=== PATIENT | male | born 1950 | race Caucasian/White ===

== ENCOUNTER → 2017-11-14 01:35 | Outpatient (CLI) | payer BC, SELFPAY ==
--- NOTE | 2017-11-14 10:51 | DI.REPORT_ITS ---
SYMPTOMS/DIAGNOSIS: F/U RT RENAL STONE, N20.0, LT HYDRO WITH MINIMAL FUNCTION RENAL ULTRASOUND: Routine examination. Comparison 04/14/17. The right kidney measures 11.4 cm long. No renal mass, calculus or obstruction is seen. There is normal blood flow to the right kidney. The left kidney measures 11.2 cm long. There is moderate to severe dilatation of the collecting system which is unchanged compared to 04/14/17. There is also again seen an exophytic cyst arising from the mid left kidney which is unchanged. The prevoid urinary bladder volume was 144 cc's. The bladder wall appeared smooth. The left ureteral jet was not visualized. The right ureteral jet was visualized. The prostate gland volume is 86 cc's. IMPRESSION: 1. No evidence of nephrolithiasis. 2. Persistent stable moderate to severe left hydronephrosis.
== END ==
PROVIDERS: PCP Internal Medicine; Visit Provider Urology
DX: N20.0 Calculus of kidney (principal); N13.30 Unspecified hydronephrosis
CPT/HCPCS: 76770

== ENCOUNTER 2018-04-06 13:36 | Outpatient (REF) | payer BC, SELFPAY ==
[2018-04-06 20:56] LABS: Abs Immature Grans 0.01 k/cumm (0.0-0.09); Absolute Basophil Count 0.05 k/cumm (0.0-0.2); Absolute Eosinophil Count 0.19 k/cumm (0.0-0.7); Absolute Lymphocyte Count 1.83 k/cumm (1.2-3.4); Absolute Monocyte Count 0.76 k/cumm (0.11-0.7); Basophils % 0.7; Eosinophils % 2.6; HCT 40.6 % (40.0-50.0); HGB 13.5 g/dL (13.5-17.5); Immature Grans % 0.1; Lymphocytes % 24.6; Mean Corp. HGB Concentration 33.3 g/dL (32.0-36.0); Mean Corpuscular Hemoglobin 27.7 pg (27.0-33.0); Mean Corpuscular Volume 83.2 fL (80-95); Mean Platelet Volume 11.5 fL (8.0-11.0); Monocytes % 10.2; Neutrophils % 61.8; Platelet Count 200 x1000/uL (130-400); RBC 4.88 m/cumm (4.50-6.00); RBC Distribution Width 13.5 % (11.8-14.1); White Blood Cell Count 7.44 k/cumm (4.4-10.8)
[2018-04-06 20:58] LABS: Bilirubin Negative (Negative); Blood Trace-intact (Negative); Clarity Clear; Glucose Negative (Negative); Ketones Negative (Negative); Leukocyte Esterase Negative (Negative); Nitrite Negative (Negative); Specific Gravity 1.025 (1.005-1.025); Urobilinogen 0.2 EU/dL (Up TO 0.2); pH 6.5 (5-8)
[2018-04-06 21:05] LABS: Epithelial Cells Rare HPF (Negative); Other Cells Negative (Negative); RBC 0-2 (0-2); WBC Negative HPF (0-5)
[2018-04-06 21:06] LABS: Bacteria Rare HPF (Negative); C & S Indicated? No; Casts Negative LPF (Negative); Crystals Negative HPF (Negative); Mucus Negative (Negative)
[2018-04-06 21:59] LABS: ESR 41 MM/HR (1-20)
[2018-04-09 12:01] LABS: Hepatitis C Ab w Rflx HCV PCR Negative (NEGAT)
== END 2018-04-06 13:56 ==
LOC: NCHCN 13:36
PROVIDERS: PCP Internal Medicine; Visit Provider Internal Medicine
DX: L03.115 Cellulitis of right lower limb (principal); Z11.59 Encounter for screening for other viral diseases
CPT/HCPCS: 85652; 86803; 81003; 81015; 85025

== ENCOUNTER 2018-04-09 11:10 | Outpatient (CLI) | payer BC, SELFPAY ==
--- NOTE | 2018-04-09 12:42 | DI.US_ITS ---
SYMPTOMS/DIAGNOSIS: RT CALF PAIN, M79.771, ? DVT RIGHT LOWER EXTREMITY ULTRASOUND: The deep veins of the right lower extremity show normal compression, augmentation and color flow. There is no evidence of a deep venous thrombus in the right lower extremity. The saphenofemoral junction appears unremarkable. The visualized portions of the greater saphenous vein show compression. No focal fluid collections are seen. There is edema seen in the soft tissues of the lower extremity. IMPRESSION: No evidence of a right lower extremity deep venous thrombus.
== END 2018-04-09 11:30 ==
PROVIDERS: PCP Internal Medicine; Visit Provider Internal Medicine
DX: M79.661 Pain in right lower leg (principal); L03.115 Cellulitis of right lower limb
CPT/HCPCS: 93971

== ENCOUNTER 2018-05-07 16:15 | Outpatient (REF) | payer BC, SELFPAY ==
[2018-05-07 22:26] LABS: BUN 24 mg/dL (7-18); CREATININE 1.03 mg/dL (0.70-1.30); Calcium 8.7 mg/dL (8.5-10.1); Chloride 103 mmol/L (98-107); Cholesterol 143 mg/dL (50-200); Glucose 119 mg/dL (70-100); HDL Cholesterol 35 mg/dL (40-60); LDL CHOLESTEROL 75 mg/dL (<100); Potassium 5.3 mmol/L (3.5-5.1); Sodium 140 mmol/L (136-145); Triglyceride 287 mg/dL (30-150)
== END 2018-05-07 16:35 ==
LOC: NCHCN 16:15
PROVIDERS: PCP Internal Medicine; Visit Provider Internal Medicine
DX: E11.9 Type 2 diabetes mellitus without complications (principal); I10 Essential (primary) hypertension; L97.529 Non-pressure chronic ulcer of other part of left foot with unspecified severity; M25.512 Pain in left shoulder; R60.9 Edema, unspecified; G47.33 Obstructive sleep apnea (adult) (pediatric); E66.9 Obesity, unspecified; S91.105A Unspecified open wound of left lesser toe(s) without damage to nail, initial encounter
CPT/HCPCS: 80048; 80061; 83721; 87077; 87070; 87205

== ENCOUNTER 2018-07-15 13:12 | Emergency (ER) | payer BC, SELFPAY ==
[2018-07-15] VITALS (8 sets, daily range): BP systolic 123–165; BP diastolic 60–61; PULSE 94–112; RESP 18; TEMP 38.4–39.2; O2SAT 98
--- NOTE | 2018-07-15 13:35 | W.ED.GENAD ---
Discharge Plan Disposition Patient Disposition: HOME Condition: Improving Discharge Details Chief Complaint: Cellulitis Clinical Impression: Cellulitis of leg, right Primary Care Provider: Chavo Flores ED Provider: Joselito Luna Home Meds and New Rx's Prescriptions: New amoxicillin-pot clavulanate 875-125 mg tablet 1 tab PO BID 10 Days Qty: 20 RF: 0 Continued metformin 1,000 MG tablet 1,000 mg PO BID RF: 0 losartan 25 MG tablet 25 mg PO HS RF: 0 simvastatin 20 MG tablet 20 mg PO DAILY RF: 0 deltamycin RF: 0 tadalafil [Cialis] 5 mg tablet 5 mg PO DAILY Qty: 30 RF: 12 multivitamin [Daily-Matias] 1 EACH tablet 1 ea PO DAILY RF: 0 vitamin B complex 1 EACH capsule 1 ea PO DAILY RF: 0 Fish Oil 500 MG capsule,delayed release(DR/EC) 1,500 mg PO DAILY RF: 0 fluocinonide 15 GM cream 1 applic Topical PRN PRNRF: 0 Discharge Instructions Instructions: Cellulitis (ED) Additional Instructions: Home to rest today. Elevate the leg above the level of the heart to reduce pain and swelling. Begin Augmentin, next dose this evening and again in the morning. I have prescribed a course of Augmentin that will need to be filled tomorrow. Return for ultrasound tomorrow morning. Please see enclosed paperwork. We will ask you to be reevaluated in the emergency department following her ultrasound in the morning. Return for any acute concerns this evening. May use Tylenol and/or ibuprofen as needed for fever or discomfort. Medical Decision Making 67-year-old male diabetic with a history of osteomyelitis, previous partial toe amputations, presents from home with 2 days right lower extremity erythema, warmth, swelling there was associated with fever at home today. He did recently travel home from [facility] earlier this week; an approximate 5-hour flight. He has had numerous episodes of soft tissue and bony infection in the past. I reviewed recent microbiology including tissue culture from May 07 which revealed streptococcal species sensitive to penicillins. Screening laboratories including CBC and CRP with blood culture obtained patient given dose of Zosyn, given current unavailability of Unasyn. XR without underlying bony pathology. Soft tissue swelling present. There is mild elevation of WBC and CRP. Patient improved over approximately 3 hours observation. I do feel he should have an outpatient ultrasound tomorrow morning as well as return for recheck. I will place him on Augmentin. He has pre-standing follow-up in wound clinic on Monday. If Isabella remains improved tomorrow, would anticipate a course of Augmentin with follow-up in [place] care clinic at [facility] [place] Lab Data Lab results reviewed: Yes I reviewed the patient's lab results. Laboratory Results - last 24 hr 07/15/18 07/15/18 14:20 14:20 WBC 12.69 H RBC 4.81 Hgb 13.1 L Hct 39.7 L MCV 82.5 MCH 27.2 MCHC 33.0 RDW 13.4 Plt Count 238 MPV 9.9 Immature Gran % 0.2 Neutrophils % 80.1 Lymphocytes % 9.9 Monocytes % 8.7 Eosinophils % 0.9 Basophils % 0.2 Absolute Neutrophils 10.16 H Absolute Lymphocytes 1.26 Absolute Monocytes 1.10 H Absolute Eosinophils 0.11 Absolute Basophils 0.03 Sodium 137 Potassium 4.1 Chloride 99 Carbon Dioxide 27.5 Anion Gap 10.5 BUN 21 H Creatinine 1.38 H Estimated GFR/1.73 m2 51.71 Glucose 166 H Calcium 9.1 Total Bilirubin 0.5 AST 16 ALT 25 Alkaline Phosphatase 85 C-Reactive Protein 6.38 H Total Protein 8.3 H Albumin 3.7 HPI General Mode of arrival: ambulatory. Date/Time Provider Initiated Documentation: 07/15/18 13:13. Limitations to Documentation: no limitations. Information obtained by: patient. History of Present Illness 67 year old M presents to the emergency department with the chief complaint of Right lower extremity erythema, pain, swelling. Hx of Osteomyelitis. , described as mild, Quality is described as aching and dull, and is localized to the right and lower extremity. Patient reports no radiation. Patient started experiencing this day(s) and it has been constant. No relieving factors improve symptom(s), No exacerbating factors reported . Patient notes fever/chills and other (redness, swelling, fever, discomfort). Patient did receive the following treatments prior to arrival, none Related Data Home Medications Medication Instructions Recorded Confirmed Fish Oil 1,500 mg PO DAILY 01/03/13 07/15/18 multivitamin [Daily-Matias] 1 ea PO DAILY 01/03/13 07/15/18 vitamin B complex 1 ea PO DAILY 01/03/13 07/15/18 fluocinonide 1 applic TOPICAL PRN PRN 12/19/14 07/15/18 losartan 25 mg PO HS 02/16/16 07/15/18 metformin 1,000 mg PO BID tab-cap 02/16/16 07/15/18 simvastatin 20 mg PO DAILY tab-cap 02/17/16 07/15/18 Deltamycin 04/14/17 tadalafil 5 mg tablet 5 mg PO DAILY #30 tab-cap 03/23/18 07/15/18 amoxicillin-pot clavulanate 1 tab PO BID 10 Days #20 tab 07/15/18 Previous Rx's Medication Instructions Recorded tadalafil 5 mg tablet 5 mg PO DAILY #30 tab-cap 03/23/18 amoxicillin-pot clavulanate 1 tab PO BID 10 Days #20 tab 07/15/18 Allergies Allergy/AdvReac Type Severity Reaction Status Date / Time Sulfa (Sulfonamide Allergy fever and Unverified 07/15/18 13:20 Antibiotics) rash lisinopril AdvReac Mild COUGH Unverified 07/15/18 13:20 General Stated Complaint: Cellulitis VALENTINO: 3 Review of Systems Review of Systems Flew to [facility] and returned earlier this week. Noticed erythema and swelling after performing joann chi yesterday. Fever today. 8 systems reviewed and otherwise- [facility] Surgical History Colonoscopy - IV Sedation (12/19/14) Social History Smoking/Tobacco Use Status: Former Tobacco Use Drug use: Never Do you feel safe at home: Yes Do you feel safe in your relationship?: Yes Exam Narrative Exam Narrative: GEN: awake, alert, oriented 3. Pleasant, well groomed, interactive. HEAD: Normocephalic, atraumatic ENT: Mucous membranes moist, oropharynx unremarkable, External ear exam unremarkable EYES: PERRL, EOMI NECK: Full ROM, no SENAIT, no menigismus CHEST/RESP: Nontender, clear to auscultation bilateral, no wheeze/rhonchi/rales CARDIOVASCULAR: Borderline tachycardic, regular, no murmur, rub laurent. 2+ Rad pulse bilateral ABDOMEN: Soft, nontender, no mass. +Bowel sounds EXT: Full ROM, healed surgical incisions on both feet, status post toe amputations both feet. The right lower extremity is erythematous and warm to the touch with blanching of the erythema. There is 2+ right pretibial edema. No cords are appreciated. At the distal edge of the remaining 2nd toe there is a shallow ulceration. Neuro: Grossly normal neurologic exam, conversant, interactive. Psych: Speech fluent, thoughts congruent, affect normal Course Vital Signs Temperature 38.7 C H 07/15/18 13:16 Pulse 112 H 07/15/18 13:16 Blood Pressure 165/61 H 07/15/18 13:16 Pulse Oximetry 98 07/15/18 13:16 Temperature 38.7 C H 07/15/18 13:16 Temperature Source Oral 07/15/18 13:16 Pulse 112 H 07/15/18 13:16 Blood Pressure 165/61 H 07/15/18 13:16 Blood Pressure Position Sitting 07/15/18 13:16 Pulse Oximetry 98 07/15/18 13:16 Oxygen Delivery Method Room Air 07/15/18 13:16 Oxygen Flow Rate 0 07/15/18 13:16 Pain Level 5 07/15/18 13:16 Lab/Test Results Lab/Test Results: 07/15/18 13:33 Blood Blood Culture - Pending 07/15/18 13:33 Blood Blood Culture - Pending
--- NOTE | 2018-07-15 13:39 | ED.GENADUL_ITS ---
Discharge Plan Disposition Patient Disposition: HOME Condition: Improving Discharge Details Chief Complaint: Cellulitis Clinical Impression: Cellulitis of leg, right Primary Care Provider: Chavo Flores ED Provider: Joselito Luna Home Meds and New Rx's Prescriptions: New amoxicillin-pot clavulanate 875-125 mg tablet 1 tab PO BID 10 Days Qty: 20 RF: 0 Continued metformin 1,000 MG tablet 1,000 mg PO BID RF: 0 losartan 25 MG tablet 25 mg PO HS RF: 0 simvastatin 20 MG tablet 20 mg PO DAILY RF: 0 deltamycin RF: 0 tadalafil [Cialis] 5 mg tablet 5 mg PO DAILY Qty: 30 RF: 12 multivitamin [Daily-Matias] 1 EACH tablet 1 ea PO DAILY RF: 0 vitamin B complex 1 EACH capsule 1 ea PO DAILY RF: 0 Fish Oil 500 MG capsule,delayed release(DR/EC) 1,500 mg PO DAILY RF: 0 fluocinonide 15 GM cream 1 applic Topical PRN PRNRF: 0 Discharge Instructions Instructions: Cellulitis (ED) Additional Instructions: Home to rest today. Elevate the leg above the level of the heart to reduce pain and swelling. Begin Augmentin, next dose this evening and again in the morning. I have prescribed a course of Augmentin that will need to be filled tomorrow. Return for ultrasound tomorrow morning. Please see enclosed paperwork. We will ask you to be reevaluated in the emergency department following her ultrasound in the morning. Return for any acute concerns this evening. May use Tylenol and/or ibuprofen as needed for fever or discomfort. Medical Decision Making 67-year-old male diabetic with a history of osteomyelitis, previous partial toe amputations, presents from home with 2 days right lower extremity erythema, warmth, swelling there was associated with fever at home today. He did recently travel home from [facility] earlier this week; an approximate 5- hour flight. He has had numerous episodes of soft tissue and bony infection in the past. I reviewed recent microbiology including tissue culture from May 07 which revealed streptococcal species sensitive to penicillins. Screening laboratories including CBC and CRP with blood culture obtained patient given dose of Zosyn, given current unavailability of Unasyn. XR without underlying bony pathology. Soft tissue swelling present. There is mild elevation of WBC and CRP. Patient improved over approximately 3 hours observation. I do feel he should have an outpatient ultrasound tomorrow morning as well as return for recheck. I will place him on Augmentin. He has pre- standing follow-up in wound clinic on Monday. If Isabella remains improved tomorrow, would anticipate a course of Augmentin with follow-up in wound care clinic at [facility] [place]. Lab Data Lab results reviewed: Yes I reviewed the patient's lab results. Laboratory Results - last 24 hr 07/15/18 07/15/18 14:20 14:20 WBC 12.69 H RBC 4.81 Hgb 13.1 L Hct 39.7 L MCV 82.5 MCH 27.2 MCHC 33.0 RDW 13.4 Plt Count 238 MPV 9.9 Immature Gran % 0.2 Neutrophils % 80.1 Lymphocytes % 9.9 Monocytes % 8.7 Eosinophils % 0.9 Basophils % 0.2 Absolute Neutrophils 10.16 H Absolute Lymphocytes 1.26 Absolute Monocytes 1.10 H Absolute Eosinophils 0.11 Absolute Basophils 0.03 Sodium 137 Potassium 4.1 Chloride 99 Carbon Dioxide 27.5 Anion Gap 10.5 BUN 21 H Creatinine 1.38 H Estimated GFR/1.73 m2 51.71 Glucose 166 H Calcium 9.1 Total Bilirubin 0.5 AST 16 ALT 25 Alkaline Phosphatase 85 C-Reactive Protein 6.38 H Total Protein 8.3 H Albumin 3.7 HPI General Mode of arrival: ambulatory . Date/Time Provider Initiated Documentation: 07/15/18 13:13 . Limitations to Documentation: no limitations . Information obtained by: patient . History of Present Illness 67 year old M presents to the emergency department with the chief complaint of Right lower extremity erythema, pain, swelling. Hx of Osteomyelitis. , described as mild, Quality is described as aching and dull, and is localized to the right and lower extremity. Patient reports no radiation. Patient started experiencing this day(s) and it has been constant. No relieving factors improve symptom(s), No exacerbating factors reported . Patient notes fever/chills and other (redness, swelling, fever, discomfort). Patient did receive the following treatments prior to arrival, none Related Data Home Medications Medication Instructions Recorded Confirmed Fish Oil 1,500 mg PO DAILY 01/03/13 07/15/18 multivitamin [Daily-Matias] 1 ea PO DAILY 01/03/13 07/15/18 vitamin B complex 1 ea PO DAILY 01/03/13 07/15/18 fluocinonide 1 applic TOPICAL PRN PRN 12/19/14 07/15/18 losartan 25 mg PO HS 02/16/16 07/15/18 metformin 1,000 mg PO BID tab-cap 02/16/16 07/15/18 simvastatin 20 mg PO DAILY tab-cap 02/17/16 07/15/18 Deltamycin 04/14/17 tadalafil 5 mg tablet 5 mg PO DAILY #30 tab-cap 03/23/18 07/15/18 amoxicillin-pot clavulanate 1 tab PO BID 10 Days #20 tab 07/15/18 Previous Rx's Medication Instructions Recorded tadalafil 5 mg tablet 5 mg PO DAILY #30 tab-cap 03/23/18 amoxicillin-pot clavulanate 1 tab PO BID 10 Days #20 tab 07/15/18 Allergies Allergy/AdvReac Type Severity Reaction Status Date / Time Sulfa (Sulfonamide Allergy fever and Unverified 07/15/18 13:20 Antibiotics) rash lisinopril AdvReac Mild COUGH Unverified 07/15/18 13:20 General Stated Complaint: Cellulitis VALENTINO: 3 Review of Systems Review of Systems Flew to [facility] and returned earlier this week. Noticed erythema and swelling after performing joann chi yesterday. Fever today. 8 systems reviewed and otherwise- [facility] Surgical History Colonoscopy - IV Sedation (12/19/14) Social History Smoking/Tobacco Use Status: Former Tobacco Use Drug use: Never Do you feel safe at home: Yes Do you feel safe in your relationship?: Yes Exam Narrative Exam Narrative: GEN: awake, alert, oriented 3. Pleasant, well groomed, interactive. HEAD: Normocephalic, atraumatic ENT: Mucous membranes moist, oropharynx unremarkable, External ear exam unremarkable EYES: PERRL, EOMI NECK: Full ROM, no SENAIT, no menigismus CHEST/RESP: Nontender, clear to auscultation bilateral, no wheeze/rhonchi/rales CARDIOVASCULAR: Borderline tachycardic, regular, no murmur, rub laurent. 2+ Rad pulse bilateral ABDOMEN: Soft, nontender, no mass. +Bowel sounds EXT: Full ROM, healed surgical incisions on both feet, status post toe amputations both feet. The right lower extremity is erythematous and warm to the touch with blanching of the erythema. There is 2+ right pretibial edema. No cords are appreciated. At the distal edge of the remaining 2nd toe there is a shallow ulceration. Neuro: Grossly normal neurologic exam, conversant, interactive. Psych: Speech fluent, thoughts congruent, affect normal Course Vital Signs Temperature 38.7 C H 07/15/18 13:16 Pulse 112 H 07/15/18 13:16 Blood Pressure 165/61 H 07/15/18 13:16 Pulse Oximetry 98 07/15/18 13:16 Temperature 38.7 C H 07/15/18 13:16 Temperature Source Oral 07/15/18 13:16 Pulse 112 H 07/15/18 13:16 Blood Pressure 165/61 H 07/15/18 13:16 Blood Pressure Position Sitting 07/15/18 13:16 Pulse Oximetry 98 07/15/18 13:16 Oxygen Delivery Method Room Air 07/15/18 13:16 Oxygen Flow Rate 0 07/15/18 13:16 Pain Level 5 07/15/18 13:16 Lab/Test Results Lab/Test Results: 07/15/18 13:33 Blood Blood Culture - Pending 07/15/18 13:33 Blood Blood Culture - Pending
[2018-07-15] MEDS: Acetaminophen 500 MG TAB 1000 MG PO (13:56)
[2018-07-15] MEDS: Lactated Ringers 1,000 ML 1000 ML IV (13:56)
[2018-07-15] MEDS: Ketorolac 15 MG/ML VIAL IVP (14:02)
[2018-07-15 14:32] LABS: Abs Immature Grans 0.03 k/cumm (0.0-0.09); Absolute Basophil Count 0.03 k/cumm (0.0-0.2); Absolute Eosinophil Count 0.11 k/cumm (0.0-0.7); Basophils % 0.2; Eosinophils % 0.9; HCT 39.7 % (40.0-50.0); HGB 13.1 g/dL (13.5-17.5); Immature Grans % 0.2; Lymphocytes % 9.9; Mean Corpuscular Hemoglobin 27.2 pg (27.0-33.0); Mean Corpuscular Volume 82.5 fL (80-95); Mean Platelet Volume 9.9 fL (8.0-11.0); Monocytes % 8.7; Neutrophils % 80.1; Platelet Count 238 x1000/uL (130-400); RBC 4.81 m/cumm (4.50-6.00); RBC Distribution Width 13.4 % (11.8-14.1); White Blood Cell Count 12.69 k/cumm (4.4-10.8)
[2018-07-15 14:33] LABS: Absolute Lymphocyte Count 1.26 k/cumm (1.2-3.4); Absolute Neutrophil Count 10.16 k/cumm (1.2-6.7)
[2018-07-15] MEDS: PIPERACILLIN/TAZO 3.375 GM in Normal Saline 50 ML IVPB (14:39)
[2018-07-15 14:45] LABS: ALT 25 U/L (12-78); AST 16 U/L (15-37); Albumin 3.7 g/dL (3.4-5.0); Alkaline Phosphatase 85 U/L (46-116); Anion Gap 10.5 mmol/L (3-11); BUN 21 mg/dL (7-18); Bilirubin, Total 0.5 mg/dL (0.2-1.0); C-Reactive Protein 6.38 mg/dL (0.0-0.3); CO2 27.5 mmol/L (21.0-32.0); CREATININE 1.38 mg/dL (0.70-1.30); Calcium 9.1 mg/dL (8.5-10.1); Chloride 99 mmol/L (98-107); Estimated GFR 51.71 (mL/min/1.73m2); Glucose 166 mg/dL (70-100); Potassium 4.1 mmol/L (3.5-5.1); Sodium 137 mmol/L (136-145); Total Protein 8.3 g/dL (6.4-8.2)
[2018-07-15] MEDS: Normal Saline 250 ML IV (14:49)
--- NOTE | 2018-07-15 14:59 | DI.RAD_ITS ---
SYMPTOMS/DIAGNOSIS: DIABETES, ERYTHEMA/PAIN, H/O OSTEOMYELITIS RIGHT TOES: Multiple images of the right toes were obtained. Comparison is 09/09/16. There are again seen postsurgical changes of an amputation of the great toe to the level of the shaft of the proximal phalanx. This is unchanged. Degenerative changes are seen in the 2nd toe in the interphalangeal joints. No acute fracture, dislocation, lytic or sclerotic lesion is seen. No radiographic findings to suggest acute osteomyelitis are present. There does appear to be soft tissue swelling of the right 2nd toe. IMPRESSION: 1. No acute fracture or dislocation. 2. Soft tissue swelling of the right 2nd toe. 3. Stable postsurgical changes of the right great toe.
--- NOTE | 2018-07-15 15:32 | DI.VRAD_ITS ---
EXAM: XR Right Toe(s), 2 or More Views EXAM DATE/TIME: 07/15/2018 1:35 PM CLINICAL HISTORY: 67 years old, male; Pain; Toes; Right; Additional info: 2nd, not 3rd toe painful x 1 wk. HX diabetes. TECHNIQUE: Imaging protocol: XR Right toes. Views: Minimum 2 views. COMPARISON: CR RIGHT FOOT COMPLETE 09/09/2016 8:07 PM FINDINGS: Prior amputation of the first digit at the level of the mid proximal phalanx. No significant soft tissue air. No acute bony erosive process. No acute fracture. Minimal ossification adjacent to the lateral aspect of the second distal phalanx well-corticated. Mild soft tissue swelling of the second digit an inflammatory process would have to be considered. IMPRESSION: 1. Prior first digit amputation as outlined above. 2. Diffuse soft tissue swelling of the second digit without a specific etiology however an inflammatory process or infectious process would have to be considered. Dictated and Authenticated by: Aaron Stokes MD. Ordering:ERIC Yee MD
[2018-07-15] MEDS: Amoxicillin 875/Clav. 125 TAB PO (16:44)
== END 2018-07-15 16:48 | disposition home or self-care (01) ==
PROVIDERS: Emergency Provider Emergency Medicine; PCP Internal Medicine
DX: L03.115 Cellulitis of right lower limb (principal); E11.9 Type 2 diabetes mellitus without complications; Z79.84 Long term (current) use of oral hypoglycemic drugs
CPT/HCPCS: 36415; 80053; 87040; 96361; 96365; 96375; 99284; 73660; 85025; 86140; J1885; J2543

== ENCOUNTER 2018-07-16 08:47 | Outpatient (CLI) | payer BC, SELFPAY ==
--- NOTE | 2018-07-16 09:41 | DI.US_ITS ---
SYMPTOM/DIAGNOSIS: RLE SWELLING, PAIN, RECENT LONG TRAVEL RIGHT LOWER EXTREMITY ULTRASOUND: The deep veins of the right lower extremity show normal compression, augmentation and color flow. There is no evidence of a deep venous thrombus present. There are lymph nodes seen in the right inguinal region, the largest measures 4.2 cm. IMPRESSION: No evidence of a right lower extremity deep venous thrombus.
== END 2018-07-16 09:07 ==
PROVIDERS: PCP Internal Medicine; Visit Provider Emergency Medicine
DX: R22.41 Localized swelling, mass and lump, right lower limb (principal); R59.0 Localized enlarged lymph nodes
CPT/HCPCS: 93971

== ENCOUNTER 2018-07-16 10:23 | Emergency (ER) | payer BC, SELFPAY ==
[2018-07-16 10:29] VITALS: BP 121/51; PULSE 92; RESP 16; TEMP 36.1; O2SAT 97
--- NOTE | 2018-07-16 11:29 | W.ED.GENAD ---
Discharge Plan Disposition Patient Disposition: HOME Condition: Stable Discharge Details Chief Complaint: Recheck Clinical Impression: Cellulitis Primary Care Provider: Chavo Flores ED Provider: Ev Elias Home Meds and New Rx's Prescriptions: Continued metformin 1,000 MG tablet 1,000 mg PO BID RF: 0 losartan 25 MG tablet 25 mg PO HS RF: 0 simvastatin 20 MG tablet 20 mg PO DAILY RF: 0 deltamycin RF: 0 tadalafil [Cialis] 5 mg tablet 5 mg PO DAILY Qty: 30 RF: 12 multivitamin [Daily-Matias] 1 EACH tablet 1 ea PO DAILY RF: 0 vitamin B complex 1 EACH capsule 1 ea PO DAILY RF: 0 Fish Oil 500 MG capsule,delayed release(DR/EC) 1,500 mg PO DAILY RF: 0 fluocinonide 15 GM cream 1 applic Topical PRN PRNRF: 0 amoxicillin-pot clavulanate 875-125 mg tablet 1 tab PO BID 10 Days Qty: 20 RF: 0 Discharge Instructions Instructions: Cellulitis (ED) Additional Instructions: Immediately to the emergency department if you develop any new or worsening symptoms or if you become otherwise concerned. It is extremely important that you are seen in follow-up tomorrow at your scheduled wound visit, or if you cannot attend that visit that you are seen in 24 hours here in the emergency department for recheck. It is also extremely important that you make an appoint to be seen as soon as possible by your primary care doctor. Referrals: Chavo Flores MD [Primary Care Provider] - Discharge Data Discharge Date/Time-TO BE ENTERED AT DEPARTURE: 07/16/18 11:34 Medical Decision Making Martin Navas is a 67 y/o man with h/o DM, HTN, HLD who presented to the ED for recheck and US results after being seen her for cellulitis, possible DVT yesterday and started on augmentin; Pt reporting symptoms improved. On exam Pt is well and non-toxic appearing. RLE 2+ pre-tibial edema, no edema of LLE. Blanching erythema of the right lower leg. US performed prior to arrival in the ED: radiology reported as neg for DVT, +lymphadenopathy. Given improvement of erythema from yesterday, Pt report that he feels much better overall, plan to continue outpt augmentin. Pt has scheduled wound appt at [facility] tomorrow. I had a lengthy discussion with Pt re: RTED precautions, home care, and importance of outpt f/u with wound care as scheduled tomorrow and also with PCP. Pt discharged to home with clear plan for outpt f/u. Pt verbalized understanding of the plan and was amenable. All questions answered. Medical Records Medical records reviewed: Yes I reviewed the patient's medical records. Imaging Data Radiologic Study: Radiologist's impression: RIGHT LOWER EXTREMITY ULTRASOUND: The deep veins of the right lower extremity show normal compression, augmentation and color flow. There is no evidence of a deep venous thrombus present. There are lymph nodes seen in the right inguinal region, the largest measures 4.2 cm. IMPRESSION: No evidence of a right lower extremity deep venous thrombus. HPI General Mode of arrival: ambulatory. Date/Time Provider Initiated Documentation: 07/16/18 10:32. Limitations to Documentation: no limitations. Information obtained by: patient, family, RN notes reviewed and old records reviewed. HPI Narrative: Martin Navas is a 67 y/o man with h/o DM, HTN, HLD presenting to the emergency department with recheck for cellulitis. Pt was seen here yesterday for redness and pain of the RLE. Diagnosed with cellulitis with concern for possible DVT. Pt was given IV abx in the ED, discharged to home with plan to RTED today for US and wound check. Pt has subsequently had 2 doses augmentin in addition to IV abx received in the ED. He reports feeling overall much better than yesterday. He notes that he had a fever last night, but no further fever this am despite no anti-pyretics. He states redness of the leg has improved from yesterday, but swelling has persisted. Has been eating and drinking as usual. Denies any pain other leg pain. No n/v/d. No other rash. No cough or SOB. Related Data Home Medications Medication Instructions Recorded Confirmed Fish Oil 1,500 mg PO DAILY 01/03/13 07/16/18 multivitamin [Daily-Matias] 1 ea PO DAILY 01/03/13 07/16/18 vitamin B complex 1 ea PO DAILY 01/03/13 07/16/18 fluocinonide 1 applic TOPICAL PRN PRN 12/19/14 07/16/18 losartan 25 mg PO HS 02/16/16 07/16/18 metformin 1,000 mg PO BID tab-cap 02/16/16 07/16/18 simvastatin 20 mg PO DAILY tab-cap 02/17/16 07/16/18 Deltamycin 04/14/17 tadalafil 5 mg tablet 5 mg PO DAILY #30 tab-cap 03/23/18 07/16/18 amoxicillin-pot clavulanate 1 tab PO BID 10 Days #20 tab 07/15/18 07/16/18 Previous Rx's Medication Instructions Recorded tadalafil 5 mg tablet 5 mg PO DAILY #30 tab-cap 03/23/18 amoxicillin-pot clavulanate 1 tab PO BID 10 Days #20 tab 07/15/18 Allergies Allergy/AdvReac Type Severity Reaction Status Date / Time Sulfa (Sulfonamide Allergy fever and Unverified 07/16/18 10:33 Antibiotics) rash lisinopril AdvReac Mild COUGH Unverified 07/16/18 10:33 General Stated Complaint: Recheck VALENTINO: 4 Review of Systems Review of Systems Constitutional: reports fever overnight Eyes: denies eye pain ENT: denies facial pain, dental pain, sore throat Cardiovascular: denies chest pain, reports RLE edema Respiratory: denies SOB, cough GI: denies abdominal pain, vomiting, diarrhea : denies flank pain MSK: denies back pain, neck pain, arthralgias Skin: reports RLE rash, no other rash Neuro: denies headaches, numbness, weakness PFSH Social History Smoking/Tobacco Use Status: Former Tobacco Use Drug use: Never Do you feel safe at home: Yes Do you feel safe in your relationship?: Yes Exam Narrative Exam Narrative: Constitutional: well and [id number]-[id number], pleasant, conversing normally HENT: head atraumatic/normocephalic/normal inspection, mucous membranes moist Eyes: conjunctiva normal, sclera normal, pupils 3mm b/l Neck: no stridor, normal ROM, trachea midline Resp: normal work of breathing Cardio: normal rate, normal rhythm Skin: warm, dry, normal color, other than ext exam as below Neuro: alert, not altered, grossly non-focal, normal tone, normal gait Ext: 2+ edema right lower leg, right lower leg with blanching erythema, no posterior calf TTP Psych: normal mood, normal affect, normal behavior Course Vital Signs Temperature 36.1 C L 07/16/18 10:29 Pulse 92 H 07/16/18 10:29 Respiratory Rate 16 07/16/18 10:29 Blood Pressure 121/51 L 07/16/18 10:29 Pulse Oximetry 97 07/16/18 10:29 Temperature 36.1 C L 07/16/18 10:29 Temperature Source Skin 07/16/18 10:29 Pulse 92 H 07/16/18 10:29 Respiratory Rate 16 07/16/18 10:29 Respiratory Effort Non-Labored 07/16/18 10:29 Blood Pressure 121/51 L 07/16/18 10:29 Blood Pressure Position Sitting 07/16/18 10:29 Pulse Oximetry 97 07/16/18 10:29 Oxygen Delivery Method Room Air 07/16/18 10:29 Oxygen Flow Rate 0 07/16/18 10:29 Pain Level 5 07/16/18 10:29
--- NOTE | 2018-07-17 21:21 | ED.GENADUL_ITS ---
Discharge Plan Disposition Patient Disposition: HOME Condition: Stable Discharge Details Chief Complaint: Recheck Clinical Impression: Cellulitis Primary Care Provider: Chavo Flores ED Provider: Ev Elias Home Meds and New Rx's Prescriptions: Continued metformin 1,000 MG tablet 1,000 mg PO BID RF: 0 losartan 25 MG tablet 25 mg PO HS RF: 0 simvastatin 20 MG tablet 20 mg PO DAILY RF: 0 deltamycin RF: 0 tadalafil [Cialis] 5 mg tablet 5 mg PO DAILY Qty: 30 RF: 12 multivitamin [Daily-Matias] 1 EACH tablet 1 ea PO DAILY RF: 0 vitamin B complex 1 EACH capsule 1 ea PO DAILY RF: 0 Fish Oil 500 MG capsule,delayed release(DR/EC) 1,500 mg PO DAILY RF: 0 fluocinonide 15 GM cream 1 applic Topical PRN PRNRF: 0 amoxicillin-pot clavulanate 875-125 mg tablet 1 tab PO BID 10 Days Qty: 20 RF: 0 Discharge Instructions Instructions: Cellulitis (ED) Additional Instructions: Immediately to the emergency department if you develop any new or worsening symptoms or if you become otherwise concerned. It is extremely important that you are seen in follow-up tomorrow at your scheduled wound visit, or if you cannot attend that visit that you are seen in 24 hours here in the emergency department for recheck. It is also extremely important that you make an appoint to be seen as soon as possible by your primary care doctor. Referrals: Chavo Flores MD [Primary Care Provider] - Discharge Data Discharge Date/Time-TO BE ENTERED AT DEPARTURE: 07/16/18 11:34 Medical Decision Making Martin Navas is a 67 y/o man with h/o DM, HTN, HLD who presented to the ED for recheck and US results after being seen her for cellulitis, possible DVT yesterday and started on augmentin; Pt reporting symptoms improved. On exam Pt is well and non-toxic appearing. RLE 2+ pre-tibial edema, no edema of LLE. Blanching erythema of the right lower leg. US performed prior to arrival in the ED: radiology reported as neg for DVT, +lymphadenopathy. Given improvement of erythema from yesterday, Pt report that he feels much better overall, plan to continue outpt augmentin. Pt has scheduled wound appt at [facility] tomorrow. I had a lengthy discussion with Pt re: RTED precautions, home care, and importance of outpt f/u with wound care as scheduled tomorrow and also with PCP. Pt discharged to home with clear plan for outpt f/u. Pt verbalized understanding of the plan and was amenable. All questions answered. Medical Records Medical records reviewed: Yes I reviewed the patient's medical records. Imaging Data Radiologic Study: Radiologist's impression: RIGHT LOWER EXTREMITY ULTRASOUND: The deep veins of the right lower extremity show normal compression, augmentation and color flow. There is no evidence of a deep venous thrombus present. There are lymph nodes seen in the right inguinal region, the largest measures 4.2 cm. IMPRESSION: No evidence of a right lower extremity deep venous thrombus. HPI General Mode of arrival: ambulatory . Date/Time Provider Initiated Documentation: 07/16/18 10:32 . Limitations to Documentation: no limitations . Information obtained by: patient, family, RN notes reviewed and old records reviewed . HPI Narrative: Martin Navas is a 67 y/o man with h/o DM, HTN, HLD presenting to the emergency department with recheck for cellulitis. Pt was seen here yesterday for redness and pain of the RLE. Diagnosed with cellulitis with concern for possible DVT. Pt was given IV abx in the ED, discharged to home with plan to [facility] today for US and wound check. Pt has subsequently had 2 doses augmentin in addition to IV abx received in the ED. He reports feeling overall much better than yesterday. He notes that he had a fever last night, but no further fever this am despite no anti-pyretics. He states redness of the leg has improved from yesterday, but swelling has persisted. Has been eating and drinking as usual. Denies any pain other leg pain. No n/v/d. No other rash. No cough or SOB. Related Data Home Medications Medication Instructions Recorded Confirmed Fish Oil 1,500 mg PO DAILY 01/03/13 07/16/18 multivitamin [Daily-Matias] 1 ea PO DAILY 01/03/13 07/16/18 vitamin B complex 1 ea PO DAILY 01/03/13 07/16/18 fluocinonide 1 applic TOPICAL PRN PRN 12/19/14 07/16/18 losartan 25 mg PO HS 02/16/16 07/16/18 metformin 1,000 mg PO BID tab-cap 02/16/16 07/16/18 simvastatin 20 mg PO DAILY tab-cap 02/17/16 07/16/18 Deltamycin 04/14/17 tadalafil 5 mg tablet 5 mg PO DAILY #30 tab-cap 03/23/18 07/16/18 amoxicillin-pot clavulanate 1 tab PO BID 10 Days #20 tab 07/15/18 07/16/18 Previous Rx's Medication Instructions Recorded tadalafil 5 mg tablet 5 mg PO DAILY #30 tab-cap 03/23/18 amoxicillin-pot clavulanate 1 tab PO BID 10 Days #20 tab 07/15/18 Allergies Allergy/AdvReac Type Severity Reaction Status Date / Time Sulfa (Sulfonamide Allergy fever and Unverified 07/16/18 10:33 Antibiotics) rash lisinopril AdvReac Mild COUGH Unverified 07/16/18 10:33 General Stated Complaint: Recheck VALENTINO: 4 Review of Systems Review of Systems Constitutional: reports fever overnight Eyes: denies eye pain ENT: denies facial pain, dental pain, sore throat Cardiovascular: denies chest pain, reports RLE edema Respiratory: denies SOB, cough GI: denies abdominal pain, vomiting, diarrhea : denies flank pain MSK: denies back pain, neck pain, arthralgias Skin: reports RLE rash, no other rash Neuro: denies headaches, numbness, weakness PFSH Social History Smoking/Tobacco Use Status: Former Tobacco Use Drug use: Never Do you feel safe at home: Yes Do you feel safe in your relationship?: Yes Exam Narrative Exam Narrative: Constitutional: well and [id number]-oraxivirv, pleasant, conversing normally HENT: head atraumatic/normocephalic/normal inspection, mucous membranes moist Eyes: conjunctiva normal, sclera normal, pupils 3mm b/l Neck: no stridor, normal ROM, trachea midline Resp: normal work of breathing Cardio: normal rate, normal rhythm Skin: warm, dry, normal color, other than ext exam as below Neuro: alert, not altered, grossly non-focal, normal tone, normal gait Ext: 2+ edema right lower leg, right lower leg with blanching erythema, no posterior calf TTP Psych: normal mood, normal affect, normal behavior Course Vital Signs Temperature 36.1 C L 07/16/18 10:29 Pulse 92 H 07/16/18 10:29 Respiratory Rate 16 07/16/18 10:29 Blood Pressure 121/51 L 07/16/18 10:29 Pulse Oximetry 97 07/16/18 10:29 Temperature 36.1 C L 07/16/18 10:29 Temperature Source Skin 07/16/18 10:29 Pulse 92 H 07/16/18 10:29 Respiratory Rate 16 07/16/18 10:29 Respiratory Effort Non-Labored 07/16/18 10:29 Blood Pressure 121/51 L 07/16/18 10:29 Blood Pressure Position Sitting 07/16/18 10:29 Pulse Oximetry 97 07/16/18 10:29 Oxygen Delivery Method Room Air 07/16/18 10:29 Oxygen Flow Rate 0 07/16/18 10:29 Pain Level 5 07/16/18 10:29
== END 2018-07-16 11:34 | disposition home or self-care (01) ==
PROVIDERS: Emergency Provider Student in an Organized Health Care Education/Training Program; PCP Internal Medicine
DX: L03.115 Cellulitis of right lower limb (principal); I10 Essential (primary) hypertension; E11.9 Type 2 diabetes mellitus without complications

== ENCOUNTER 2018-08-06 01:28 | Outpatient (CLI) | payer BC, SELFPAY ==
--- NOTE | 2018-08-06 09:04 | DI.US_ITS ---
SYMPTOM/DIAGNOSIS: F/U RT KIDNEY STONE AND LT HYDRONEPHROSIS, N13.30 RENAL ULTRASOUND: Comparison is made with 11/14/17. The left kidney measures 11.2 cm. in length. The right kidney measures 11.8 cm. in length. There is mild left renal parenchymal atrophy. There is again noted to be moderate to severe left hydronephrosis, unchanged. No calcifications are identified. There are no right renal calculi or right hydronephrosis. The prevoid bladder volume measures 87 cc's. There is a 12 cc. post void residual. Both ureteral jets were visualized. The prostate volume is 38 cc's. Prostate calcifications are noted. IMPRESSION: Stable moderate to severe left hydronephrosis. No calculi are visible.
== END 2018-08-06 01:48 ==
PROVIDERS: PCP Internal Medicine; Visit Provider Urology
DX: N13.30 Unspecified hydronephrosis (principal); N28.89 Other specified disorders of kidney and ureter
CPT/HCPCS: 76770

== ENCOUNTER 2018-12-12 14:38 | Outpatient (CLI) | payer BC, SELFPAY ==
--- NOTE | 2018-12-12 14:00 | DI.US_ITS ---
EXAM: US LOWER EXTREMITY VENOUS RT CLINICAL HISTORY: RIGHT CALF PAIN X 2 DAYS, M79.661, H/O CELLULITIS/STASIS DERMATITIS, ? DVT. TECHNIQUE: Ultrasound was performed using standard protocol. COMPARISON: No comparisons were available. FINDINGS: The examination is negative for DVT. Note is made of multiple large presumably reactive right groin l ymph nodes, the largest of which measures 3.7 x 1.6 x 2.84 cm. Medial right calf edema is demonstrat ed. There is also no evidence of superficial thrombophlebitis or a Seay's cyst.
[2018-12-12 16:03] LABS: Abs Immature Grans 0.06 k/cumm (0.0-0.09); HCT 41.5 % (40.0-50.0); HGB 13.9 g/dL (13.5-17.5); Mean Corp. HGB Concentration 33.5 g/dL (32.0-36.0); Mean Corpuscular Hemoglobin 27.6 pg (27.0-33.0); Mean Corpuscular Volume 82.3 fL (80-95); Mean Platelet Volume 10.6 fL (8.0-11.0); Platelet Count 212 x1000/uL (130-400); RBC 5.04 m/cumm (4.50-6.00); RBC Distribution Width 13.4 % (11.8-14.1); White Blood Cell Count 23.89 k/cumm (4.4-10.8)
[2018-12-12 16:41] LABS: Diff Comment Manual Differential
[2018-12-12 16:42] LABS: Absolute Lymphocyte Count 7.64 k/cumm (1.2-3.4); Absolute Monocyte Count 1.19 k/cumm (0.11-0.7); Absolute Neutrophil Count 22.22 k/cumm (1.2-6.7); Atypical Lymphocytes % N
[2018-12-12 16:44] LABS: Other Cells 0; Promyelocytes % 0 %
[2018-12-12 17:29] LABS: ESR 25 mm/hr (1-20)
[2018-12-12 17:54] LABS: ALT 35 U/L (16-63); AST 24 U/L (15-37); Albumin 4.3 g/dL (3.4-5.0); Alkaline Phosphatase 90 U/L (46-116); Anion Gap 15.4 mmol/L (3-11); BUN 27 mg/dL (7-18); Bilirubin, Total 0.7 mg/dL (0.2-1.0); C-Reactive Protein 3.52 mg/dL (0.0-0.3); CO2 22.6 mmol/L (21.0-32.0); CREATININE 1.48 mg/dL (0.70-1.30); Calcium 9.2 mg/dL (8.5-10.1); Chloride 100 mmol/L (98-107); Estimated GFR 47.55 (mL/min/1.73m2); Glucose 181 mg/dL (70-100); LDH 212 U/L (85-227); Potassium 4.1 mmol/L (3.5-5.1); Sodium 138 mmol/L (136-145); Total Protein 8.4 g/dL (6.4-8.2)
[2018-12-14 11:59] LABS: Lyme Ab w Rflx to Lyme Confirm Negative
[2018-12-15 23:40] LABS: Anaplasma phagocytophilum Negative (Negative); B. miyamotoi PCR Negative (Negative); Babesia divergens/MO-1 Negative (Negative); Babesia duncani Negative (Negative); Babesia microti Negative (Negative); Ehrlichia chaffeensis Negative (Negative); Ehrlichia ewingii/canis Negative (Negative); Ehrlichia muris eauclairensis Negative (Negative)
== END 2018-12-12 14:58 ==
PROVIDERS: PCP Internal Medicine; Visit Provider Specialist/Technologist Athletic Trainer
DX: R50.9 Fever, unspecified (principal); M79.661 Pain in right lower leg; R59.0 Localized enlarged lymph nodes; R60.0 Localized edema
CPT/HCPCS: 36410; 80053; 85652; 87040; 87798; 81003; 83615; 85025; 86140; 86618; 93971

== ENCOUNTER 2019-02-08 01:26 | Outpatient (CLI) | payer BC, MEDICARE, SELFPAY ==
--- NOTE | 2019-02-08 14:15 | DI.US_ITS ---
EXAM: US RENAL CLINICAL HISTORY: MONITOR RIGHT STONE, LT HYDRONEPHROSIS, N20.0, N13.30 TECHNIQUE: Ultrasound performed using standard protocol. COMPARISON: US renal from 08/06/2018 US LOWER EXTREMITY VENOUS RT from 12/12/2018 FINDINGS: The right kidney measures 11.7 centimeters in length. No renal mass, calculus or obstruction is iden tified. There is blood flow to the right kidney. The left kidney measures 12.2 centimeters in length. There is renal cortical atrophy. There is again seen marked hydronephrosis and hydroureter. It appears stable. No renal calculi are seen. There i s a left renal cyst, which appears stable. It measures 2.3 centimeters maximally. The prevoid urinary bladder volume is 170 cc. The postvoid urinary bladder volume is 33 cc. No intr aluminal masses or bladder wall thickening is seen. The right ureteral jet was visualized. The left ureteral jet was not visualized. Prostatic volume is 62 cc. IMPRESSION: Persistent marked left hydronephrosis and hydroureter.
== END 2019-02-08 01:46 ==
PROVIDERS: PCP Internal Medicine; Visit Provider Urology
DX: N20.0 Calculus of kidney (principal); N13.30 Unspecified hydronephrosis; N13.4 Hydroureter; N28.1 Cyst of kidney, acquired
CPT/HCPCS: 76770

== ENCOUNTER 2019-07-30 00:36 | Outpatient (CLI) | payer BC, SELFPAY ==
--- NOTE | 2019-07-30 07:00 | DI.US_ITS ---
EXAM: US RENAL CLINICAL HISTORY: monitor known left hydronephrosis,M13.30 TECHNIQUE: Ultrasound performed using standard protocol. COMPARISON: US US RENAL from 02/08/2019 FINDINGS: Examination is compared with prior study of February 08 which showed severe left hydronephrosis. H ydronephrosis is again noted, grossly unchanged from the prior study. Simple cyst is also again note d of the lateral aspect the left kidney. Left ureter is dilated through its visible course but is not seen directly adjacent to the ureteroves ical junction. Right kidney is unremarkable in appearance except for a couple of small simple cysts, largest measuri ng 2 cm in diameter in the lower pole of the kidney. No right hydronephrosis or hydroureter. Urinary bladder grossly unremarkable in appearance, pre and postvoid urinary bladder volume measureme nts 115 cc and 43 cc respectively. Right ureteral jet was noted, left ureteral jet not visualized. IMPRESSION: Persistent left hydronephrosis and hydroureter, no left ureteral jet identified in the urinary bladde r, findings are consistent with presumed obstruction in the region of the distal left ureter. DATA REPOSITORY:
== END 2019-07-30 00:56 ==
PROVIDERS: PCP Internal Medicine; Visit Provider Urology
DX: N28.1 Cyst of kidney, acquired; N13.1 Hydronephrosis with ureteral stricture, not elsewhere classified
CPT/HCPCS: 76770

== ENCOUNTER 2019-08-19 09:39 | Outpatient (REF) | payer BC, SELFPAY ==
[2019-08-19 20:49] LABS: Anion Gap 6.2 mmol/L (3-11); BUN 27 mg/dL (7-18); CO2 29.8 mmol/L (21.0-32.0); CREATININE 1.09 mg/dL (0.70-1.30); Calcium 9.2 mg/dL (8.5-10.1); Chloride 104 mmol/L (98-107); Glucose 117 mg/dL (74-106); Potassium 4.4 mmol/L (3.5-5.1); Sodium 140 mmol/L (136-145)
[2019-08-19 21:17] LABS: Hemoglobin A1C 5.9 % (3.8-5.6)
== END 2019-08-19 09:59 ==
LOC: NCHCN 09:39
PROVIDERS: PCP Internal Medicine; Visit Provider Internal Medicine
DX: E11.9 Type 2 diabetes mellitus without complications (principal); N18.2 Chronic kidney disease, stage 2 (mild)
CPT/HCPCS: 80048; 83036

== ENCOUNTER 2020-02-26 01:34 | Outpatient (CLI) | payer BC, SELFPAY ==
--- NOTE | 2020-02-26 | DI.RAD_ITS ---
EXAM: XR KNEE RT 3V AP,LAT,ROSALIE CLINICAL HISTORY: OA RT KNEE, RT KNEE PAIN,M17.9. TECHNIQUE: 2D digital imaging was performed. COMPARISON: No exams were available for comparison FINDINGS: No evidence of fracture nor more prominent joint effusion. Moderate degenerative changes are noted i n medial compartment. Mild degenerative changes in the lateral compartment. Moderate degenerative c hanges in the patellofemoral compartment. No osseous lesions. Bone density is age-appropriate. IMPRESSION: Moderate degenerative changes as described above. DATA REPOSITORY: RADIATION DOSE DELIVERED:
--- NOTE | 2020-02-26 | DI.RAD_ITS ---
EXAM: XR HIP RT COMPLETE AP PELVIS CLINICAL HISTORY: OA RT HIP. RT HIP PAIN,M16.11. TECHNIQUE: 2D digital imaging was performed. COMPARISON: No exams were available for comparison FINDINGS: No evidence of pelvic or hip fracture. No degenerative narrowing of the hip joints. No osteophytes. On the lateral view of the right hip there is a suggestion of a small bony excrescence on the anter ior femoral neck at the junction of the head and neck. This may indicate an element of CAM-type ROMÁN. IMPRESSION: No fracture or joint space narrowing. As above. If clinically indicated cross-table lateral view ca n be performed for better study of the femoral neck bony excrescence described above. DATA REPOSITORY: RADIATION DOSE DELIVERED:
== END 2020-02-26 01:54 ==
PROVIDERS: PCP Internal Medicine; Visit Provider Internal Medicine
DX: M17.11 Unilateral primary osteoarthritis, right knee (principal); M25.551 Pain in right hip
CPT/HCPCS: 73562; 73502

== ENCOUNTER 2020-03-05 00:27 | Outpatient (CLI) | payer BC, SELFPAY ==
--- NOTE | 2020-03-05 06:30 | DI.US_ITS ---
EXAM: US RENAL CLINICAL HISTORY: monitor known left hydronephrosis,N13.30 TECHNIQUE: Ultrasound performed using standard protocol. COMPARISON: US US RENAL from 07/30/2019 FINDINGS: The ultrasound examination is compared with prior study of July 30, 2019. Note is again made of sever e left hydronephrosis. Small bilateral renal cysts again noted. No gross interval change appearance comparison with the prior examination. Ureteral jets are identified bilaterally in the urinary bladder. Pre and postvoid urinary bladder volume, 128 cc and 11 cc respectively. No intrinsic abnormality of the urinary bladder seen. IMPRESSION: Persistent severe left hydronephrosis, however ureteral jets are noted bilaterally in the urinary bl adder indicating there is not a total obstruction of the left collecting system or ureter. DATA REPOSITORY:
== END 2020-03-05 00:47 ==
PROVIDERS: PCP Internal Medicine; Visit Provider Urology
DX: N13.30 Unspecified hydronephrosis (principal)
CPT/HCPCS: 76770

== ENCOUNTER 2020-03-05 01:35 | Outpatient (CLI) | payer BC, SELFPAY ==
[2020-03-05 11:20] LABS: BUN 21 mg/dL (7-18); CREATININE 1.14 mg/dL (0.70-1.30)
== END 2020-03-05 01:55 ==
PROVIDERS: PCP Internal Medicine; Visit Provider Urology
DX: E11.9 Type 2 diabetes mellitus without complications (principal); N13.39 Other hydronephrosis
CPT/HCPCS: 36415; 84520; 82565; 83036

== ENCOUNTER 2020-06-10 11:57 | Outpatient (CLI) | payer BC, SELFPAY ==
--- NOTE | 2020-06-10 09:00 | DI.RAD_ITS ---
EXAM: XR SHOULDER RT COMPLETE 2+V CLINICAL HISTORY: left shoulder pain. TECHNIQUE: 2D digital imaging was performed. COMPARISON: No exams were available for comparison FINDINGS: Two views of the right shoulder reveal no evidence of fracture or dislocation. There is a 3 millimet er calcific density just above the greater tuberosity consistent with calcific tendinitis. Minimal d egenerative changes in the glenohumeral joint. Some degenerative change in the AC joint noted. Gabriel janet, the subacromial space does not appear diminished in height. Bone density is age-appropriate and there are no osseous lesions evident. IMPRESSION: Calcific rotator cuff tendinitis. DATA REPOSITORY: RADIATION DOSE DELIVERED:
== END 2020-06-10 11:58 | disposition home or self-care (01) ==
LOC: DIORS 11:57
PROVIDERS: PCP Internal Medicine; Visit Provider Student in an Organized Health Care Education/Training Program
DX: M75.31 Calcific tendinitis of right shoulder (principal); M75.21 Bicipital tendinitis, right shoulder; M75.41 Impingement syndrome of right shoulder
CPT/HCPCS: 73030

== ENCOUNTER 2020-06-30 02:16 | Outpatient (CLI) | payer BC, SELFPAY ==
--- NOTE | 2020-06-30 10:45 | DI.MRI_ITS ---
EXAM: MR UPPER JOINT RT WO CLINICAL HISTORY: SHOULDER PAIN,IMPINGEMENT SYNDROME,TENDONITIS,M75.41,M75.21,M75.31. TECHNIQUE: Multiplanar multisequence MRI was performed. COMPARISON: CR XR SHOULDER RT COMPLETE 2+V from 06/10/2020 FINDINGS: BONES: There is no fracture or contusion pattern. JOINTS: Moderately severe degenerative changes are seen at the acromioclavicular joint. Degenerative changes are also seen in the greater tuberosity. The glenohumeral joint is normal. TENDONS: Supraspinatus: There is a partial tear of the supraspinatus tendon at its insertion site. Infraspinatus: Unremarkable. Subscapularis: Subscapularis tendinosis. Teres Minor: Unremarkable. Biceps and Sumava Resorts: Unremarkable. MUSCLES: Mild atrophy of the teres minor muscle. GLENOID LABRUM: Unremarkable on this noncontrast examination. SOFT TISSUES: Unremarkable. LIGAMENTS: Unremarkable. OTHER: Small amount of fluid in the subacromial subdeltoid bursa. IMPRESSION: 1. Partial tear of the supraspinatus tendon. 2. Subscapularis tendinosis. 3. Teres minor muscle atrophy 4. Moderately severe degenerative changes at the acromioclavicular joint and the greater tuberosity. DATA REPOSITORY:
== END 2020-06-30 02:36 ==
PROVIDERS: PCP Internal Medicine; Visit Provider Student in an Organized Health Care Education/Training Program
DX: M25.511 Pain in right shoulder (principal); M75.41 Impingement syndrome of right shoulder; M75.21 Bicipital tendinitis, right shoulder; M75.31 Calcific tendinitis of right shoulder; M75.111 Incomplete rotator cuff tear or rupture of right shoulder, not specified as traumatic
CPT/HCPCS: 73221

== ENCOUNTER 2020-09-04 02:52 | Outpatient (CLI) | payer BC, SELFPAY ==
[2020-09-04 15:37] LABS: BUN 25 mg/dL (7-18); CREATININE 1.2 mg/dL (0.70-1.30)
== END 2020-09-04 02:53 | disposition home or self-care (01) ==
LOC: LBO 02:52
PROVIDERS: Nurse Practitioner Gerontology; PCP Internal Medicine; Visit Provider Urology
DX: N13.30 Unspecified hydronephrosis (principal)
CPT/HCPCS: 36415; 84520; 82565

== ENCOUNTER 2020-11-15 17:48 | Emergency (ER) | payer BC, SELFPAY ==
[2020-11-15] VITALS (16 sets, daily range): BP systolic 127–139; BP diastolic 57–66; PULSE 65–79; RESP 9–21; TEMP 37; O2SAT 98–100
--- NOTE | 2020-11-15 17:45 | RT.EKG_ITS ---
APPROVED REPORT Exam: Resting ECG Reason for Exam: fall Patient Location: E HR:63 bpm ECG Measurements Heart Rate 63 AXIS PA 175 P 42 QRSd 99 QRS 5 QT 428 T 33 QTc 435 Conclusion Sinus rhythm...normal P axis, V-rate 60- 99 Ventricular premature complex...V complex w/ short R-R interval
--- NOTE | 2020-11-15 18:00 | DI.CT_ITS ---
Exam(s) CT HEAD CERVICAL SPINE WO EXAM: CT HEAD CERVICAL SPINE WO CLINICAL HISTORY: fall from ladder, chest and back pain. TECHNIQUE: Imaging Protocol: Axial computed tomography images with coronal and sagittal reformatted images were created and reviewed COMPARISON: No exams were available for comparison FINDINGS: CT Head: Ventricles and Extra axial spaces: Normal in size and morphology for the patient's age. Hemorrhage: None. Cerebral parenchyma: Normal. No acute territorial infarct. Midline shift: None. Brainstem/Cerebellum: Normal. Calvarium: Normal. Visualized Paranasal sinuses/Mastoids: Mucous retention cysts or polyps are seen in the maxillary sin uses bilaterally. There is opacification of several ethmoid air cells bilaterally. Mild mucosal thi ckening is seen in the left frontal sinus. The remaining visualized paranasal sinuses are clear. Th e mastoid air cells are clear. Soft Tissues: Unremarkable. CT Cervical Spine: Bones: No acute fracture or subluxation. 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 Soft Tissues: Unremarkable. Lung Apices: Clear. IMPRESSION: 1. No acute intracranial process. 2. No acute fracture or subluxation in the cervical spine. RADIATION DOSE DELIVERED: 1,521.27mGy.cm Total DLP DATA REPOSITORY: All CT scans at this facility are submitted to the National Radiology Data Registry (NRDR) Dose Index Registry (DIR) with the [employer] ([employer]). RADIATION OPTIMIZATION: All CT scans at this facility use at least one of these dose optimization te chniques: automated exposure control; mA and/or kV adjustment per patient size (includes targeted exa ms where dose is matched to clinical indication); or iterative reconstruction.
--- NOTE | 2020-11-15 18:00 | DI.CT_ITS ---
Exam(s) CT THORACIC LUMBAR SPINE WO CT CHEST/ABD/PEL W EXAM: CT CHEST/ABD/PEL W and CT thoracic and lumbar spine recons CLINICAL HISTORY: fall from ladder, chest and thoracic pain TECHNIQUE: Imaging Protocol: Axial computed tomography images with coronal and sagittal reformatted images were created and reviewed CONTRAST MATERIAL: Intravenous: Omnipaque 350 Contrast volume:100 mL Oral: No COMPARISON: CT ABD PELVIS WO CONTRAST from 10/28/2016 CT ABD PELVIS WO CONTRAST from 10/28/[address] THORACIC LUMBAR SPINE WO from 11/15/[address] THORACIC LUMBAR SPINE WO from 11/15/2020 FINDINGS: CHEST: Tracheobronchial tree: Patent where visualized. Pulmonary parenchyma: No consolidation or dominant measurable mass. No architectural distortion. Ther e is dependent atelectasis. Visualized thyroid gland: Unremarkable. Mediastinum and Brinda: No dominant adenopathy or fluid collection. Pleura: No effusion or pneumothorax. Heart: The heart is not dilated. Mild coronary artery calcification. No pericardial effusion. Aorta: Thoracic aorta non-dilated. No dissection. Lymph nodes: Within normal limits. Soft tissues: Unremarkable. Bones:No displaced rib fractures. 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 No acute fractures or subluxations. There is normal alignment of the thoracic spine. ABDOMEN: Liver: Normal density. No measurable mass. Portal, Superior Mesenteric, and Splenic Veins: Unremarkable. Gallbladder and Biliary Tract: Cholelithiasis. No biliary ductal dilatation. Pancreas: Normal density, no abnormal calcifications or inflammatory process. Spleen: Normal. Adrenals: No masses seen. Kidneys: Normal size, contour and axis. There is a 2 mm stone at the left UVJ. There is severe left hydronephrosis throughout almost its entire course except for the distal 2 cm. Bilateral simple marisol l cysts are present. There is worsening left renal cortical atrophy which is now marked. Abdominal Aorta: Abdominal portion non-dilated. Mild atherosclerosis. Bowel: No obstruction or bowel wall thickening. No evidence of appendicitis. Peritoneal Cavity: No ascites, collection or mesenteric inflammatory response. No free air. Lymph Nodes: Within normal limits. Bones: No acute fracture. Soft Tissues: Unremarkable. PELVIS: Bladder: Symmetric distention, no gross wall thickening. Reproductive Organs: Moderately enlarged prostate gland. Lymph Nodes: Within normal limits. Bones: Within normal limits. CT reconstructions of the lumbar spine: No acute fracture or subluxation in the lumbar spine. IMPRESSION: 1. Evidence of acute abdominal or pelvic organ injury or lumbar spine fracture. 2. Marked left renal cortical atrophy with marked left hydronephrosis. There is dilatation of the le ft ureter except for the distal 2 cm. A distal left ureteral stricture cannot be excluded. 3. 2 mm left UVJ calculus. 4. Cholelithiasis, no evidence of biliary ductal dilatation. 5. Unremarkable CT scan of the chest. 6. No acute fracture or subluxation in the thoracic spine. RADIATION DOSE DELIVERED: Total DLP DATA REPOSITORY: All CT scans at this facility are submitted to the National Radiology Data Registry (NRDR) Dose Index Registry (DIR) with the [employer] ([employer]). RADIATION OPTIMIZATION: All CT scans at this facility use at least one of these dose optimization te chniques: automated exposure control; mA and/or kV adjustment per patient size (includes targeted exa ms where dose is matched to clinical indication); or iterative reconstruction.
--- NOTE | 2020-11-15 18:13 | ED.GENADUL_ITS ---
Discharge Plan Disposition Patient Disposition: HOME Condition: Stable Discharge Details Clinical Impression: Hydronephrosis, left, Fall, Contusion of chest, Abdominal contusion Primary Care Provider: Chavo Flores ED Provider: Sylvester Valencia Home Meds and New Rx's Prescriptions: Continued losartan 25 MG tablet 25 mg PO HS RF: 0 simvastatin 20 MG tablet 20 mg PO DAILY RF: 0 tadalafil [Cialis] 5 mg tablet 5 mg PO DAILY Qty: 30 RF: 12 multivitamin [Daily-Matias] 1 EACH tablet 1 ea PO DAILY RF: 0 vitamin B complex 1 EACH capsule 1 ea PO DAILY RF: 0 Fish Oil 500 MG capsule,delayed release(DR/EC) 1,500 mg PO DAILY RF: 0 fluocinonide 15 GM cream 1 applic Topical PRN PRNRF: 0 docusate sodium [Dulcolax Stool Softener (dss)] 100 mg Capsule 100 mg PO PRN PRNRF: 0 Discharge Instructions Instructions: Contusion in Adults (ED) Additional Instructions: your cat scans did not show any concerning findings from the fall if symptoms continue this week follow up with your primary care provider if you feel more ill, have severe worsening slater or persistent vomit return to the emergency department you can try using lidocaine patches which are over the counter at pharmacies Medical Decision Making <Joselito Luna MD - Last Filed: 11/15/20 18:17> This is a 70-year-old male who was working on the third or fourth rung of a ladder when he fell backwards striking the hard ground. He does not recall the fall and questions a brief loss of consciousness. States he was able to get up and ambulate to the house, sit in a chair, and was evaluated by his neighbor who is a general surgeon. On my exam the patient has sternal tenderness and right paraspinous thoracic tenderness. His mental status is normal. Given his amnesia, would consider intracranial injury as well as bony spine or thorax injury. Patient IV access established, screening labs obtained he is referred for CT images. Screening EKG obtained which shows the patient to be in normal sinus rhythm with unifocal PVC. <Sylvester Valencia MD - Last Filed: 11/15/20 20:44> ct imaging all negative for acute pathology, has chronic left hydronephrosis and sees urology for this. He is stable and only has mild epigastric tenderness on exam without guarding which is likely contusion. HE is stable for d/c, advised to take prn tylenol and can try lidocaine patch. Return precautions given Imaging Data Radiologic Study: Attestation: I personally reviewed and interpreted this imaging study as follows: Imaging: CT Scan Radiologist's impression: no acute findings on head and c spine ct Radiologic Study #2: Attestation: I personally reviewed and interpreted this imaging study as follows: Imaging: CT Scan Radiologist's impression: no acute findings on chest ct on CT abd/pelvis: 1. no acute fracture 2. No acute intra-abdominal or pelvic findings related to recent trauma. 3. Left renal severe cortical thinning with chronic severe left hydronephrosis. Dilatation of the majority of the left ureter (up to 13 mm caliber transversely) - except for the distal 2 cm - which may reflect distal left ureteral stricture. 2.5 mm calcified stone within the distal left UVJ region or left posterolateral urinary bladder lumen. 4. Cholelithiasis, otherwise normal gallbladder. No biliary tract dilatation. Radiologic Study #3: Attestation: I personally reviewed and interpreted this imaging study as follows: Imaging: CT Scan Radiologist's impression: no acute findings on thoracic or lumbar spine CT HPI <Joselito Luna MD - Last Filed: 11/15/20 18:17> General Mode of arrival: ambulatory . Date/Time Provider Initiated Documentation: 11/15/20 17:51 . Limitations to Documentation: no limitations . Information obtained by: patient . History of Present Illness 70 year old M presents to the emergency department with the chief complaint of Fall from ladder, sternal and back pain, described as moderate, Quality is described as dull, and is localized to the chest and back. Patient reports no radiation. Patient started experiencing this hour(s) and it has been constant. No relieving factors improve symptom(s), No exacerbating factors reported . Patient notes other (Does not recall the event, question brief loss of consciousness. Was able to ambulate.). Patient did receive the following treatments prior to arrival, none Related Data Home Medications Medication Instructions Recorded Confirmed Fish Oil 1,500 mg PO DAILY 01/03/13 11/15/20 multivitamin [Daily-Matias] 1 ea PO DAILY 01/03/13 11/15/20 vitamin B complex 1 ea PO DAILY 01/03/13 11/15/20 fluocinonide 1 applic TOPICAL PRN PRN 12/19/14 11/15/20 losartan 25 mg PO HS 02/16/16 11/15/20 simvastatin 20 mg PO DAILY tab-cap 02/17/16 11/15/20 tadalafil 5 mg tablet 5 mg PO DAILY #30 tab-cap 07/16/20 11/15/20 docusate sodium [Dulcolax Stool 100 mg PO PRN PRN 11/15/20 11/15/20 Softener (dss)] Previous Rx's Medication Instructions Recorded tadalafil 5 mg tablet 5 mg PO DAILY #30 tab-cap 07/16/20 Allergies Allergy/AdvReac Type Severity Reaction Status Date / Time silver Allergy Verified 11/15/20 18:03 [From Tegaderm AG Mesh] Sulfa (Sulfonamide Allergy fever and Unverified 11/15/20 18:03 Antibiotics) rash lisinopril AdvReac Mild COUGH Unverified 11/15/20 18:03 General Stated Complaint: Chest Pain VALENTINO: 2 Review of Systems <Joselito Luna MD - Last Filed: 11/15/20 18:17> Narrative: Question brief loss of consciousness. Mild headache. No neck pain. Low thoracic pain, anterior chest pain that is worse with pressure and movement. 8 systems reviewed and otherwise negative PFSH <Joselito Luna MD - Last Filed: 11/15/20 18:17> Surgical History Colonoscopy - IV Sedation (12/19/14) FLAVIO ROBERTO Social History Smoking/Tobacco Use Status: Former Tobacco Use Smoking risk assessment performed?: Yes Alcohol Intake: current Alcohol Intake frequency: a few times a week Alcohol type: beer Drug use: Never Substance use type: does not use Current gender identity: male Do you feel safe at home: Yes Do you feel safe in your relationship?: Yes Exam <Joselito Luna MD - Last Filed: 11/15/20 18:17> Narrative Exam Narrative: GEN: awake, alert, oriented 3. Pleasant, well groomed, interactive. HEAD: Normocephalic, atraumatic ENT: Mucous membranes moist, oropharynx unremarkable, External ear exam unremarkable EYES: PERRL, EOMI NECK: Full ROM, no SENAIT, nontender, no step-off or deformity CHEST/RESP: Tender anterior sternum lower third, clear to auscultation dwight ateral, no wheeze/rhonchi/rales CARDIOVASCULAR: RRR, no murmur, rub laurent. 2+ Rad pulse bilateral ABDOMEN: Soft, nontender, no mass. +Bowel sounds Back: No midline tenderness step-off or deformity. There is right lower thoracic paraspinous tenderness to palpation. EXT: Full ROM, no edema, no rash Neuro: Grossly normal neurologic exam, conversant, interactive. Psych: Speech fluent, thoughts congruent, affect normal Course <Joselito Luna MD - Last Filed: 11/15/20 18:17> Vital Signs Vital signs: Vital Signs Temperature 37.0 C 11/15/20 17:56 Pulse 68 11/15/20 17:56 Respiratory Rate 14 11/15/20 17:56 Blood Pressure 139/61 11/15/20 17:56 Pulse Oximetry 99 11/15/20 17:56 Temperature 37.0 C 11/15/20 17:56 Temperature Source Temporal Artery Scan 11/15/20 17:56 Pulse 67 11/15/20 18:02 Pulse 73 11/15/20 18:02 Respiratory Rate 16 11/15/20 18:02 Respiratory Effort 11/15/20 18:03 Blood Pressure 139/61 11/15/20 18:02 Blood Pressure Mean 79 11/15/20 18:02 Blood Pressure Position Supine 11/15/20 17:56 Pulse Oximetry 99 11/15/20 17:56 Oxygen Delivery Method Room Air 11/15/20 17:56 Oxygen Flow Rate 0 11/15/20 17:56 Pain Level 7 11/15/20 17:56 Sign Out <Joselito Luna MD - Last Filed: 11/15/20 18:17> Sign Out Data: Sign Out Comment: Followup CT images Last updated by Joselito Luna MD at 11/15/20 19:38
[2020-11-15 18:54] LABS: HCT 44.7 % (40.0-50.0); HGB 14.4 g/dL (13.5-17.5); MCH 27.3 pg (27.0-33.0); MCHC 32.2 % (32.0-36.0); MCV 84.8 fL (80-95); MPV 10.4 fL (8.0-11.0); Platelet Count 197 10^3/uL (130-400); RBC 5.27 10^6/uL (4.36-5.78); RDW 12.5 % (11.8-14.1); RDW-SD 38.9 fL; WBC 7.75 10^3/uL (4.4-10.8)
[2020-11-15 18:58] LABS: Anion Gap 8.3 mmol/L (3-11); BUN 22 mg/dL (7-18); CO2 28.7 mmol/L (21.0-32.0); CREATININE 1.1 mg/dL (0.70-1.30); Calcium 9.6 mg/dL (8.5-10.1); Chloride 104 mmol/L (98-107); Glucose 137 mg/dL (74-106); Sodium 141 mmol/L (136-145)
[2020-11-15] MEDS: Omnipaque 350 MG/ML 100 ML BTL IJ (20:17)
[2020-11-15] MEDS: Normal Saline Flush 10 ML SYR IVP (20:19)
--- NOTE | 2020-11-15 20:19 | DI.VRAD_ITS ---
PROCEDURE INFORMATION: Exam: CT Head Without Contrast Exam date and time: 11/15/2020 6:13 PM Age: 70 years old Clinical indication: Injury or trauma; Blunt trauma (contusions or hematomas); Injury date: 11/15/20; Injury details: Fall from ladder, loc chest and back pain; Prior surgery; Surgery date: 6+ months; Surgery type: L kidney stone TECHNIQUE: Imaging protocol: Computed tomography of the head without contrast. Radiation optimization: All CT scans at this facility use at least one of these dose optimization techniques: automated exposure control; mA and/or kV adjustment per patient size (includes targeted exams where dose is matched to clinical indication); or iterative reconstruction. COMPARISON: No relevant prior studies available. FINDINGS: Brain: There is no evidence for acute intra-axial or extra-axial hemorrhage. There is no intracranial mass or mass effect. The basilar cisterns are patent. There is [id number] diffuse cerebral volume loss. There is normal martinez-white differentiation throughout the brain. There is no CT evidence of acute cortical infarct. Cerebral ventricles: There is mild ventriculomegaly, likely related to the diffuse cerebral volume loss. Paranasal sinuses: There is partial opacification of the frontal sinuses, maxillary sinuses and sphenoid sinuses as well as the ethmoid air cells. Mastoid air cells: Visualized mastoid air cells are well aerated. Bones/joints: Unremarkable. No acute fracture. Soft tissues: Unremarkable. IMPRESSION: 1. No acute intracranial process identified. 2. No fractures identified. 3. Findings suggest history of sinusitis as described above. Recommend clinical correlation. PROCEDURE INFORMATION: Exam: CT Cervical Spine Without Contrast Exam date and time: 11/15/2020 6:13 PM Age: 70 years old Clinical indication: Injury or trauma; Blunt trauma (contusions or hematomas); Injury date: 11/15/20; Injury details: Fall from ladder, loc chest and back pain; Prior surgery; Surgery date: 6+ months; Surgery type: L kidney stone TECHNIQUE: Imaging protocol: Computed tomography images of the cervical spine without contrast. Radiation optimization: All CT scans at this facility use at least one of these dose optimization techniques: automated exposure control; mA and/or kV adjustment per patient size (includes targeted exams where dose is matched to clinical indication); or iterative reconstruction. COMPARISON: No relevant prior studies available. FINDINGS: Bones/joints: No acute fracture. Normal alignment. Discs/Spinal canal/Neural foramina: There is mild broad-based posterior disc bulging from C4-6. No severe spinal canal stenosis. There is moderate productive endplate spurring from C4-6 consistent with spondylosis. There is moderate uncovertebral spurring at C5-C6 with osseous neural foraminal stenosis at this level, right greater than left. There is moderate hypertrophic facet arthrosis on the right at C4-C5 as well as bilaterally at C5-C6 with more mild facet arthrosis at other levels. Lungs: Lung apices are normal. Soft tissues: Unremarkable. IMPRESSION: 1. No acute fractures or subluxations. 2. Degenerative changes as described above. Dictated and Authenticated by: Antonio Morrow MD. Ordering:ERIC Yee MD
--- NOTE | 2020-11-15 20:27 | DI.VRAD_ITS ---
PROCEDURE INFORMATION: Exam: CT Chest With Contrast; Diagnostic Exam date and time: 11/15/2020 6:13 PM Age: 70 years old Clinical indication: Injury; Blunt trauma; Injury date: 11/15/20; Fall from ladder, chest and thoracic pain; Prior surgery; date: 6+ months; L kidney stone surgery TECHNIQUE: Imaging protocol: Diagnostic computed tomography of the chest with contrast. Radiation optimization: All CT scans at this facility use at least one of these dose optimization techniques: automated exposure control; mA and/or kV adjustment per patient size (includes targeted exams where dose is matched to clinical indication); or iterative reconstruction. Contrast material: OMNIPAQUE 350; Contrast volume: 100 ml; Contrast route: INTRAVENOUS (IV); COMPARISON: CT ABD PELVIS WO CONTRAST 10/28/2016 9:29 AM FINDINGS: Lungs: No lung contusion. No pulmonary infiltrate. Posterior mild lung dependent parenchymal changes bilaterally. Pleural spaces: No pneumothorax. No pleural effusion. Heart: Coronary artery calcification. Aorta: Unremarkable. No aortic aneurysm. Lymph nodes: Unremarkable. No enlarged lymph nodes. Bones/joints: No acute fracture. Spinal degenerative changes. Soft tissues: Unremarkable. IMPRESSION: 1. No acute fracture. 2. No acute intrathoracic findings. PROCEDURE INFORMATION: Exam: CT Abdomen And Pelvis With Contrast Exam date and time: 11/15/2020 6:13 PM Age: 70 years old Clinical indication: Injury; Blunt trauma; Injury date: 11/15/20; Fall from ladder, chest and thoracic pain; Prior surgery; date: 6+ months; L kidney stone surgery TECHNIQUE: Imaging protocol: Computed tomography of the abdomen and pelvis with contrast. Radiation optimization: All CT scans at this facility use at least one of these dose optimization techniques: automated exposure control; mA and/or kV adjustment per patient size (includes targeted exams where dose is matched to clinical indication); or iterative reconstruction. Contrast material: OMNIPAQUE 350; Contrast volume: 100 ml; Contrast route: INTRAVENOUS (IV); COMPARISON: CT ABD PELVIS WO CONTRAST 10/28/2016 9:29 AM FINDINGS: Liver: Normal. No mass. Gallbladder and bile ducts: Cholelithiasis, otherwise normal gallbladder. No biliary tract dilatation. Pancreas: Normal. No ductal dilation. Spleen: Normal. No splenomegaly. Adrenal glands: Normal. No mass. Kidneys and ureters: No right hydronephrosis. No perinephric fluid. Bilateral renal cortical cysts. Left renal severe cortical thinning with chronic severe left hydronephrosis. Dilatation of the majority of the left ureter (up to 13 mm caliber transversely) - except for the distal 2 cm - which may reflect distal left ureteral stricture. 2.5 mm calcified stone within the distal left UVJ region or left posterolateral urinary bladder lumen. Stomach and bowel: Unremarkable. No obstruction. No mucosal thickening. Appendix: Normal appendix. Intraperitoneal space: No free air. No significant fluid collection. Vasculature: Unremarkable. No abdominal aortic aneurysm. Lymph nodes: Unremarkable. No enlarged lymph nodes. Urinary bladder: No bladder wall thickening. 2.5 mm calcified stone within the distal left UVJ region or left posterolateral urinary bladder lumen Reproductive: Enlarged prostate gland measuring 6.4 cm transversely. Bones/joints: No acute fracture. Soft tissues: Unremarkable. IMPRESSION: 1. No acute fracture. 2. No acute intra-abdominal or pelvic findings related to recent trauma. 3. Left renal severe cortical thinning with chronic severe left hydronephrosis. Dilatation of the majority of the left ureter (up to 13 mm caliber transversely) - except for the distal 2 cm - which may reflect distal left ureteral stricture. 2.5 mm calcified stone within the distal left UVJ region or left posterolateral urinary bladder lumen. 4. Cholelithiasis, otherwise normal gallbladder. No biliary tract dilatation. Dictated and Authenticated by: Marco Nicholas MD. Ordering:ERIC Yee MD
--- NOTE | 2020-11-15 20:31 | DI.VRAD_ITS ---
PROCEDURE INFORMATION: Exam: CT Thoracic Spine Without Contrast Exam date and time: 11/15/2020 6:13 PM Age: 70 years old Clinical indication: Injury; Blunt trauma; Injury date: 11/15/20; Fall from ladder TECHNIQUE: Imaging protocol: Computed tomography images of the thoracic spine without contrast. Radiation optimization: All CT scans at this facility use at least one of these dose optimization techniques: automated exposure control; mA and/or kV adjustment per patient size (includes targeted exams where dose is matched to clinical indication); or iterative reconstruction. COMPARISON: CT HEAD CERVICAL SPINE WO 11/15/2020 7:29 PM FINDINGS: Vertebrae: No acute fracture. Normal alignment of the thoracic vertebral bodies. Spinal degenerative changes. Discs/Spinal canal/Neural foramina: No significant disc protrusion. No severe spinal canal stenosis. No significant neural foraminal narrowing. Soft tissues: Unremarkable. IMPRESSION: No acute fracture. PROCEDURE INFORMATION: Exam: CT Lumbar Spine Without Contrast Exam date and time: 11/15/2020 6:13 PM Age: 70 years old Clinical indication: Injury; Blunt trauma; Injury date: 11/15/20; Fall from ladder TECHNIQUE: Imaging protocol: Computed tomography images of the lumbar spine without contrast. Radiation optimization: All CT scans at this facility use at least one of these dose optimization techniques: automated exposure control; mA and/or kV adjustment per patient size (includes targeted exams where dose is matched to clinical indication); or iterative reconstruction. COMPARISON: CT HEAD CERVICAL SPINE WO 11/15/2020 7:29 PM FINDINGS: Vertebrae: No acute fracture. Normal alignment of the lumbar vertebral bodies. Spinal degenerative changes. Discs/Spinal canal/Neural foramina: No significant disc protrusion. No severe spinal canal stenosis. No significant neural foraminal narrowing. Soft tissues: Unremarkable. IMPRESSION: No acute fracture. Please refer to CT abdomen/pelvis report dated 11/15/2020 for additional information. Dictated and Authenticated by: Marco Nicholas MD. Ordering:ERIC Yee MD
[2020-11-15] MEDS: Acetaminophen 500 MG TAB 1000 MG PO (20:44)
[2020-11-15] MEDS: Lidocaine 5% Patch 1 PATCH TP (20:45)
== END 2020-11-15 20:55 | disposition home or self-care (01) ==
PROVIDERS: Emergency Medicine; Emergency Provider Emergency Medicine; PCP Internal Medicine
DX: N13.30 Unspecified hydronephrosis (principal); S20.214A Contusion of middle front wall of thorax, initial encounter; S30.1XXA Contusion of abdominal wall, initial encounter; W11.XXXA Fall on and from ladder, initial encounter; R41.3 Other amnesia
CPT/HCPCS: 36415; 74177; 80048; 85027; 93005; 99285; 70450; 71260; 72125; 72128; 72131; 93010; 99284; J3490

== ENCOUNTER → 2021-03-11 13:31 | Outpatient (BNVA) | payer MEDICARE, BC, SELFPAY | PROVIDERS: PCP Internal Medicine; Visit Provider Nurse Practitioner Gerontology | DX: N13.30 Unspecified hydronephrosis (principal); N20.1 Calculus of ureter; R39.9 Unspecified symptoms and signs involving the genitourinary system | CPT/HCPCS: 36415; 99214 ==

== ENCOUNTER 2021-03-11 15:22 | Outpatient (REF) | payer MEDICARE, BC, SELFPAY ==
[2021-03-11 15:33] LABS: BUN 24 mg/dL (7-18)
== END 2021-03-11 15:23 | disposition home or self-care (01) ==
LOC: LBN 15:22
PROVIDERS: PCP Internal Medicine; Visit Provider Nurse Practitioner Gerontology
DX: N13.30 Unspecified hydronephrosis (principal)
CPT/HCPCS: 84520; 82565

== ENCOUNTER 2021-05-07 14:59 | Outpatient (REF) | payer MEDICARE, BC, SELFPAY | END 2021-05-07 15:00 | disposition home or self-care (01) | LOC: NCHCN 14:59 | PROVIDERS: PCP Internal Medicine; Visit Provider Family Medicine | DX: E11.621 Type 2 diabetes mellitus with foot ulcer (principal) | CPT/HCPCS: 87077; 87070; 87186; 87205 ==

== ENCOUNTER 2021-08-24 09:20 | Outpatient (REF) | payer MEDICARE, BC, SELFPAY ==
[2021-08-24 14:41] LABS: ALT 32 U/L (16-63); AST 22 U/L (15-37); Albumin 4.1 g/dL (3.4-5.0); Alkaline Phosphatase 108 U/L (46-116); Anion Gap 11.7 mmol/L (3-11); BUN 23 mg/dL (7-18); Bilirubin, Total 0.3 mg/dL (0.2-1.0); CO2 25.3 mmol/L (21.0-32.0); CREATININE 1.1 mg/dL (0.70-1.30); Calcium 8.7 mg/dL (8.5-10.1); Chloride 105 mmol/L (98-107); Glucose 176 mg/dL (74-106); Potassium 4.6 mmol/L (3.5-5.1); Sodium 142 mmol/L (136-145); Total Protein 7.8 g/dL (6.4-8.2)
== END 2021-08-24 09:21 | disposition home or self-care (01) ==
LOC: NCHCN 09:20
PROVIDERS: PCP Internal Medicine; Visit Provider Internal Medicine
DX: E11.9 Type 2 diabetes mellitus without complications (principal); N18.2 Chronic kidney disease, stage 2 (mild); I10 Essential (primary) hypertension; E66.9 Obesity, unspecified
CPT/HCPCS: 80053; 85025

== ENCOUNTER 2021-08-25 09:26 | Outpatient (REF) | payer MEDICARE, BC, SELFPAY ==
[2021-08-25 14:10] LABS: Abs Immature Grans 0.02 10^3/uL (0.0-0.06); Absolute Basophil Count 0.07 10^3/uL (0.0-0.2); Absolute Eosinophil Count 0.28 10^3/uL (0.0-0.7); Absolute Lymphocyte Count 2.27 10^3/uL (1.2-3.4); Absolute Monocyte Count 0.59 10^3/uL (0.1-0.8); Absolute Neutrophil Count 3.05 10^3/uL (1.2-6.7); Basophils % 1.1; Eosinophils % 4.5; HGB 14.3 g/dL (13.5-17.5); Immature Grans % 0.3; Lymphocytes % 36.1; MCH 27.9 pg (27.0-33.0); MCHC 33.3 % (32.0-36.0); MCV 84 fL (80-95); MPV 10.7 fL (8.0-11.0); Monocytes % 9.4; Neutrophils % 48.6; Platelet Count 214 10^3/uL (130-400); RBC 5.12 10^6/uL (4.36-5.78); RDW-SD 39.6 fL; WBC 6.28 10^3/uL (4.4-10.8)
== END 2021-08-25 09:27 | disposition home or self-care (01) ==
LOC: NCHCN 09:26
PROVIDERS: PCP Internal Medicine; Visit Provider Internal Medicine
DX: N18.2 Chronic kidney disease, stage 2 (mild) (principal); E11.9 Type 2 diabetes mellitus without complications; I10 Essential (primary) hypertension
CPT/HCPCS: 85025

== ENCOUNTER → 2021-09-03 00:23 | Outpatient (CLI) | payer MEDICARE, BC, SELFPAY ==
--- NOTE | 2021-09-03 07:30 | DI.US_ITS ---
Exam(s) US RENAL EXAM: US RENAL CLINICAL HISTORY: monitoring hydroNEPHROSIS,LT,N13.30 TECHNIQUE: Ultrasound performed using standard protocol. COMPARISON: US US RENAL from 03/08/2021 FINDINGS: Renal was performed according to the usual protocol. There is severe left hydronephrosis, unchanged from prior examination of February 2021. Incidental small bilateral simple renal cysts are noted. N o solid lesion identified. No right hydronephrosis. No nephrolithiasis identified on either side. Pre and postvoid urinary bladder volume measurements are 87 cc and 38 cc respectively, no other focal bladder abnormality is seen. Note is made that the right ureteral jet was not identified but left u reteral jet was seen. IMPRESSION: Severe left hydronephrosis, no interval change from February 2021. DATA REPOSITORY:
== END ==
PROVIDERS: PCP Internal Medicine; Visit Provider Nurse Practitioner Gerontology
DX: N13.30 Unspecified hydronephrosis (principal)
CPT/HCPCS: 76770

== ENCOUNTER → 2021-09-13 14:41 | Outpatient (BNVA) | payer MEDICARE, BC, SELFPAY | PROVIDERS: PCP Internal Medicine; Referring Provider Internal Medicine; Visit Provider Nurse Practitioner Gerontology | DX: N40.1 Benign prostatic hyperplasia with lower urinary tract symptoms (principal); R39.12 Poor urinary stream; N13.30 Unspecified hydronephrosis | CPT/HCPCS: 99214 ==

== ENCOUNTER 2021-10-25 19:15 | Outpatient (REF) | payer MEDICARE, BC, SELFPAY ==
[2021-10-26 10:00] LABS: Lyme Ab w Rflx to Lyme Confirm Negative (Negative)
== END 2021-10-25 19:16 | disposition home or self-care (01) ==
LOC: LBN 19:15
PROVIDERS: PCP Internal Medicine; Visit Provider Nurse Practitioner Family
DX: R21 Rash and other nonspecific skin eruption (principal)
CPT/HCPCS: 86618

== ENCOUNTER → 2022-03-03 02:03 | Outpatient (CLI) | payer MEDICARE, BC, SELFPAY ==
--- NOTE | 2022-03-03 06:45 | DI.US_ITS ---
Exam(s) US RENAL EXAM: US RENAL CLINICAL HISTORY: monitoring left hydroNEPHROSIS, N13.30. TECHNIQUE: Griffin scale, color and spectral Doppler were used. COMPARISON: CT CT CHEST/ABD/PEL W from 11/15/2020 US US RENAL from 09/03/2021 FINDINGS: Renal size in cm: Right: 12.4. Left: 13. Echogenicity: Normal. Hydronephrosis: There is persistent dilatation of the left renal collecting system which is unchanged . Cyst or mass: No. Nephrolithiasis: There is a question of a mildly echogenic focus in the mid right kidney which may re present a vascular calcification versus a nonobstructing stone. CT scan from 11/15/2020 did not show evidence of a renal stone in this area. Other findings: None. Bladder:Normal. Ureteral jets: Right: Visualized and unremarkable. Left: Not visualized at this time. Prevoid vol:272 cc Postvoid vol:121 cc Prostate: 38 cc Renal color flow: Symmetric and within normal limits. IMPRESSION: Persistent left hydronephrosis. A nuclear medicine renal scan may be considered for further evaluati on. DATA REPOSITORY:
== END ==
PROVIDERS: PCP Internal Medicine; Visit Provider Nurse Practitioner Gerontology
DX: N13.30 Unspecified hydronephrosis (principal)
CPT/HCPCS: 76770

== ENCOUNTER 2022-03-04 01:08 | Outpatient (CLI) | payer MEDICARE, BC, SELFPAY ==
[2022-03-04 13:59] LABS: BUN 25 mg/dL (7-18); CREATININE 1.4 mg/dL (0.70-1.30); Estimated GFR 54.41 (mL/min/1.73m2)
== END 2022-03-04 01:09 | disposition home or self-care (01) ==
LOC: LBO 01:08
PROVIDERS: Nurse Practitioner Gerontology; PCP Internal Medicine; Visit Provider Internal Medicine
DX: N13.30 Unspecified hydronephrosis (principal); R39.89 Other symptoms and signs involving the genitourinary system; R39.15 Urgency of urination
CPT/HCPCS: 36415; 84520; 82565

== ENCOUNTER → 2022-03-07 15:20 | Outpatient (BNVA) | payer MEDICARE, BC, SELFPAY | PROVIDERS: PCP Internal Medicine; Visit Provider Nurse Practitioner Gerontology | DX: R39.89 Other symptoms and signs involving the genitourinary system (principal); N13.30 Unspecified hydronephrosis | CPT/HCPCS: 99214 ==

== ENCOUNTER 2022-03-30 01:56 | Outpatient (CLI) | payer MEDICARE, BC, SELFPAY ==
[2022-03-30] MEDS: Simethicone/Sod Bicarb/Cit Ac, 4 gram PACKET 1 PACKET PO (10:21)
[2022-03-30] MEDS: Barium Sulfate 60% W/V 355 ML BTL PO (10:22)
[2022-03-30] MEDS: Barium Sulfate 98% W/W 140 ML BTL PO (10:22)
[2022-03-30] MEDS: Barium Sulfate 700 MG TAB PO (10:22)
--- NOTE | 2022-03-30 10:23 | DI.RAD_ITS ---
Exam(s) RF BARIUM SWALLOW EXAM: RF BARIUM SWALLOW CLINICAL HISTORY: DYSPHAGIA, R13.10 TECHNIQUE: 2D and realtime digital imaging was performed. CONTRAST MATERIAL: Thick and thin barium and barium tablet were administered. COMPARISON: CT CT CHEST/ABD/PEL W from 11/15/2020 FINDINGS: Lateral view of the neck shows degenerative changes. The airway is unremarkable. PA view of the [address] shows normal heart size and clear lung haji. Patient swallowed barium without difficulty. There is no aspiration. Esophageal peristalsis is norm al. No ulceration, stricture or mass is identified. Barium passed tablet passed into the stomach wi thout delay. Severe gastroesophageal reflux was visible in the patient was placed supine. No hiata l hernia is identified. Fluoro time 42 seconds IMPRESSION: Severe gastroesophageal reflux. RADIATION DOSE DELIVERED: asha Gunderson=15.9 mGy
== END 2022-03-30 02:16 ==
PROVIDERS: PCP Internal Medicine; Visit Provider Internal Medicine
DX: K21.9 Gastro-esophageal reflux disease without esophagitis (principal)
CPT/HCPCS: 74221; J3490

== ENCOUNTER 2022-05-31 10:12 | Inpatient (IN) | payer MEDICARE, BC, SELFPAY ==
[2022-05-31] VITALS (7 sets, daily range): BP systolic 121–152; BP diastolic 51–75; PULSE 64–72; RESP 16–20; TEMP 36.5–36.9; O2SAT 96–98
[2022-05-31] MEDS: oxyCODONE 5 mg/Acetaminophen 325 mg TAB 1 TAB PO (11:05)
[2022-05-31 11:07] LABS: Abs Immature Grans 0.01 10^3/uL (0.0-0.06); Absolute Basophil Count 0.03 10^3/uL (0.0-0.2); Absolute Eosinophil Count 0.09 10^3/uL (0.0-0.7); Absolute Lymphocyte Count 1.42 10^3/uL (1.2-3.4); Absolute Monocyte Count 0.47 10^3/uL (0.1-0.8); Absolute Neutrophil Count 5.17 10^3/uL (1.2-6.7); Basophils % 0.4; Eosinophils % 1.3; HCT 41.7 % (40.0-50.0); HGB 13.9 g/dL (13.5-17.5); Immature Grans % 0.1; Lymphocytes % 19.7; MCH 27.6 pg (27.0-33.0); MCHC 33.3 % (32.0-36.0); MCV 83 fL (80-95); MPV 10.5 fL (8.0-11.0); Monocytes % 6.5; Platelet Count 210 10^3/uL (130-400); RBC 5.04 10^6/uL (4.36-5.78); RDW 12.7 % (11.8-14.1); RDW-SD 38.4 fL; WBC 7.19 10^3/uL (4.4-10.8)
[2022-05-31] MEDS: Ketorolac 15 MG/ML VIAL IVP ×2 (11:16→18:20)
[2022-05-31] MEDS: diazePAM 10 MG/2 ML SYR 2.5 MG IVP ×2 (11:16→12:26)
[2022-05-31 11:37] LABS: ALT 31 U/L (16-63); AST 29 U/L (15-37); Albumin 3.5 g/dL (3.4-5.0); Alkaline Phosphatase 74 U/L (46-116); Anion Gap 8.3 mmol/L (3-11); BUN 21 mg/dL (7-18); Bilirubin, Total 0.6 mg/dL (0.2-1.0); CO2 26.7 mmol/L (21.0-32.0); Calcium 8.9 mg/dL (8.5-10.1); Chloride 105 mmol/L (98-107); Creatine Kinase 247 U/L (39-308); Estimated GFR 81.47 (mL/min/1.73m2); Glucose 141 mg/dL (74-106); Lipase 39 U/L (16-77); Potassium 4.7 mmol/L (3.5-5.1); Sodium 140 mmol/L (136-145)
[2022-05-31 12:09] LABS: Bilirubin Negative (Negative); Blood Negative (Negative); Clarity Clear (Clear); Glucose Negative (Negative); Ketones Trace mg/dL (Negative); Leukocyte Esterase Negative (Negative); Nitrite Negative (Negative); Specific Gravity >= 1.030 (1.005-1.025); Urobilinogen 0.2 mg/dL (Up to 0.2); pH 5.5 (5-8)
[2022-05-31 12:22] LABS: Bacteria Rare HPF (Negative); C & S Indicated? No; Casts 0-2 Hyaline LPF (Negative); Crystals Negative HPF (Negative); Epithelial Cells Rare HPF (Negative); Mucus Trace (Negative); RBC Negative HPF (0-2); WBC 0-2 HPF (0-5)
--- NOTE | 2022-05-31 12:33 | ED.GENADUL_ITS ---
Discharge Plan Disposition Patient Disposition: Admit to [facility] Discharge Details Clinical Impression: Lumbar back pain Admit Date/Time: 05/31/22 15:20 Admit Provider: Ny Rodriguez Attending Provider: Ny Rodriguez Primary Care Provider: Chavo Flores ED Provider: Cindy Ibrahim Discharge Data Discharge Date/Time-TO BE ENTERED AT DEPARTURE: 05/31/22 16:18 Medical Decision Making This 71-year-old male presents with report of back pain, history of back pain and similar presentation although typically with ibuprofen he is able to alleviate his pain, this has been persistent. States the pain is predominantly exacerbated when trying to go from from sitting to standing, had to call ambulance secondary to being unable to get out of his bed today. I reviewed labs stable for him when compared to prior when compared to prior Urinalysis does not show evidence of acute abnormality There is no clinical evidence of cauda equina syndrome, patient presents with musculoskeletal back pain, I did consider other etiologies however with any sort of movement or position change, patient's back pain is exacerbated consistent with lumbago Patient is unable to ambulate after numerous medications in the emergency department, he is not able to be discharged home as he cannot ambulate and his is unable to assist him at home because of the size He is agreeable to admission at this time I did speak with the admitting hospitalist, Dr. Rodriguez he does recommend imaging/CT of lumbar spine was ordered which does not show evidence of acute fracture His CT did show evidence of severe left-sided hydronephrosis which per Dr. Avila, patient's urologist is completely unchanged from prior, patient feels as though he is been able to void in the emergency department and Dr. Avila does not feel like he needs a Ramos catheter at this time as his severe hydronephrosis is unchanged HPI General Date/Time Provider Initiated Documentation: 05/31/22 10:19 . HPI Narrative: This 71-year-old male presents with report of lower back pain worsening over the course of the past week, history of back pain in the past. States has been shoveling a lot of snow and he thinks this may have precipitated his pain. He denies any fever or chills. He denies any chest pain or shortness of breath. He denies any dizziness or weakness. Denies any strength or sensation changes to groin. States the pain is largely exacerbated with any movement. Denies any abdominal pain. Denies any strength or sensation change to his extremities. Related Data Home Medications Medication Instructions Recorded Confirmed multivitamin (Daily-Matias tablet) 1 ea PO DAILY 01/03/13 05/31/22 omega 3-dha 60 mg-epa 90 mg-fish 1,500 mg PO DAILY 01/03/13 05/31/22 oil 500 mg capsule, delayed release (Fish Oil) vitamin B complex 1 ea PO DAILY 01/03/13 05/31/22 fluocinonide 0.05 % topical cream 1 applic topical PRN PRN 12/19/14 05/31/22 losartan 25 mg tablet 25 mg PO HS 02/16/16 05/31/22 simvastatin 20 mg tablet 20 mg PO DAILY 02/17/16 05/31/22 docusate sodium 100 mg capsule 100 mg PO PRN PRN 11/15/20 05/31/22 (Dulcolax Stool Softener (docusate)) lidocaine 5 % topical patch 1 patch topical DAILY PRN pain #30 11/15/20 05/31/22 ea tadalafil 5 mg tablet (Cialis) 5 mg PO DAILY #90 tab-caps 09/13/21 05/31/22 metformin 500 mg tablet 500 mg PO DAILY 03/07/22 05/31/22 Previous Rx's Medication Instructions Recorded lidocaine 5 % topical patch 1 patch topical DAILY PRN pain #30 11/15/20 ea tadalafil 5 mg tablet (Cialis) 5 mg PO DAILY #90 tab-caps 09/13/21 Allergies Allergy/AdvReac Type Severity Reaction Status Date / Time silver Allergy Verified 03/11/21 13:36 [From Tegaderm AG Mesh] Sulfa (Sulfonamide Allergy fever and Unverified 03/11/21 13:36 Antibiotics) rash lisinopril AdvReac Mild COUGH Unverified 03/11/21 13:36 General Stated Complaint: Nk/Back Pain VALENTINO: 4 PFSH All Active Problems (Updated 06/01/22 @ 15:59 by Ny Rodriguez MD) Lumbar back pain with radiculopathy affecting left lower extremity (Acute) Lumbar nerve root compression (Acute) Herniation of left side of L4-L5 intervertebral disc (Acute) Discharge planning issues (Acute) DVT prophylaxis (Acute) Cholelithiasis (Acute) Fatty liver (Acute) Peripheral neuropathy (Chronic) Non-insulin treated type 2 diabetes mellitus (Chronic) Lumbar back pain (Acute) Fall (Acute) Contusion of chest (Acute) Abdominal contusion (Acute) Rotator cuff tear, right (Acute) Primary osteoarthritis of right knee (Acute) Impingement syndrome of right shoulder (Acute) Tendonitis of long head of biceps brachii of right shoulder (Acute) Gross hematuria (Acute 12/25/15) Hydronephrosis, left (Chronic 04/01/16) Left ureteral stone (Acute 12/25/15) Lower urinary tract symptoms (LUTS) (Acute 01/19/16) Left ureteral stone (Acute) Surgical History (Updated 05/31/22 @ 17:36 by Ny Rodriguez MD) Amputation of one or more toes Colonoscopy - IV Sedation (12/19/14) FLAVIO ROBERTO H/O cystoscopy Family History (Updated 05/31/22 @ 19:17 by Ny Rodriguez MD) Maternal Grandfather Heart disease Mother Diabetes Maternal Aunt Diabetes Sister Cancer pancreatic cancer - smoker Social History Smoking/Tobacco Use Status: Former Tobacco Use Smoking risk assessment performed?: Yes Alcohol Intake: current Alcohol Intake frequency: a few times a month Alcohol type: beer Drug use: Never Substance use type: does not use Current gender identity: male Do you feel safe at home: Yes Do you feel safe in your relationship?: Yes Exam Const General: cooperative, comfortable and no acute distress Eyes Sclera: sclerae normal Resp Effort & Inspection: normal respiratory effort Cardio Rate: regular rate Other: Distal pulses intact GI Other: No abdominal bruit or pulsatile mass, no CVA tenderness Back/Spine/Pelvis Back: no CVA tenderness Other: Paraspinal lumbar tenderness, no midline tenderness or crepitus Skin General skin exam: no rashes or lesions noted Neuro General: patient alert and patient oriented x3 Motor: strength 5/5 throughout, normal tone and strength normal Sensory Exam: no sensory deficits noted (No new neurological findings on exam,) Other: Positive straight leg raise on right and left, negative Babinski Course Vital Signs Vital signs: Vital Signs Temperature 36.7 C 05/31/22 10:18 Pulse 70 05/31/22 10:18 Respiratory Rate 16 05/31/22 10:18 Blood Pressure 125/58 L 05/31/22 10:18 Pulse Oximetry 98 05/31/22 10:18 Temperature 36.7 C 05/31/22 10:18 Temperature Source Oral 05/31/22 10:18 Pulse 64 05/31/22 10:46 Respiratory Rate 16 05/31/22 10:18 Respiratory Effort Normal, Non-Labored 05/31/22 10:28 Blood Pressure 133/51 L 05/31/22 10:46 Blood Pressure Mean 72 05/31/22 10:46 Blood Pressure Position Supine 05/31/22 10:18 Pulse Oximetry 98 05/31/22 10:18 Oxygen Delivery Method Room Air 05/31/22 10:18 Oxygen Flow Rate 0 05/31/22 10:18 Pain Level 5 05/31/22 10:30 Lab/Test Results Lab/Test Results: Laboratory Tests Range/Units 05/31/22 05/31/22 05/31/22 11:00 11:00 12:00 WBC (4.4-10.8) 10^3/uL 7.19 RBC (4.36-5.78) 10^6/uL 5.04 Hgb (13.5-17.5) g/dL 13.9 Hct (40.0-50.0) % 41.7 MCV (80-95) fL 83 MCH (27.0-33.0) pg 27.6 MCHC (32.0-36.0) % 33.3 RDW (11.8-14.1) % 12.7 Plt Count (130-400) 10^3/uL 210 MPV (8.0-11.0) fL 10.5 Immature Gran % 0.1 Neutrophils % 72.0 Lymphocytes % 19.7 Monocytes % 6.5 Eosinophils % 1.3 Basophils % 0.4 Nucleated RBC % (0.0-0.3) % 0.0 Absolute Neutrophils (1.2-6.7) 10^3/uL 5.17 Absolute Lymphocytes (1.2-3.4) 10^3/uL 1.42 Absolute Monocytes (0.1-0.8) 10^3/uL 0.47 Absolute Eosinophils (0.0-0.7) 10^3/uL 0.09 Absolute Basophils (0.0-0.2) 10^3/uL 0.03 Sodium (136-145) mmol/L 140 Potassium (3.5-5.1) mmol/L 4.7 Chloride (98-107) mmol/L 105 Carbon Dioxide (21.0-32.0) mmol/L 26.7 Anion Gap (3-11) mmol/L 8.3 BUN (7-18) mg/dL 21 H Creatinine (0.70-1.30) mg/dL 1.0 Est GFR (CKD-EPI 2020) (mL/min/1.73m2) 81.47 Glucose (74-106) mg/dL 141 H Calcium (8.5-10.1) mg/dL 8.9 Total Bilirubin (0.2-1.0) mg/dL 0.6 AST (15-37) U/L 29 ALT (16-63) U/L 31 Alkaline Phosphatase (46-116) U/L 74 Creatine Kinase (39-308) U/L 247 Total Protein (6.4-8.2) g/dL 7.0 Albumin (3.4-5.0) g/dL 3.5 Lipase (16-77) U/L 39 Urine Color (Yellow) Yellow Urine Clarity (Clear) Clear Urine pH (5-8) 5.5 Ur Specific [place] (1.005-1.025) >= 1.030 H Urine Protein (Negative) mg/dL Trace H Urine Ketones (Negative) mg/dL Trace H Urine Blood (Negative) Negative Urine Nitrite (Negative) Negative Urine Bilirubin (Negative) Negative Urine Urobilinogen (Up to 0.2) mg/dL 0.2 Ur Leukocyte Esterase (Negative) Negative Urine RBC (0-2) HPF Negative Urine WBC (0-5) HPF 0-2 Ur Epithelial Cells (Negative) HPF Rare Urine Crystals (Negative) HPF Negative Urine Bacteria (Negative) HPF Rare Urine Casts (Negative) LPF 0-2 Hyaline Urine Mucus (Negative) Trace Ur Culture Indicated? No Urine Glucose (Negative) mg/dL Negative PAWSS Have you Been Recently Intoxicated or Drunk Within the Last 30 days?: No Have you Ever Experienced Previous Episodes of Alcohol Withdrawal?: No Have you ever Experienced Withdrawal Seizures?: No Have you ever Experienced Delirium Tremens(DT)s?: No Have you ever undergone Alcohol Rehabilitation Treatment (i.e, inpt ot outpatient treatment programs)?: No Have you ever Experienced Blackouts?: No Have you ever Combined Alcohol with other Downers within the last 90 days?: No Have you ever Combined Alcohol with any other Substance of Abuse during the last 90 days?: No Positive Blood Alcohol level on Presentation? [PCS.BAL]: No Evidence of Increased Autonomic Activity (i.e. HR>120, tremor, sweating, agitation, nausea)?: No Result: 0
--- NOTE | 2022-05-31 13:00 | DI.CT_ITS ---
Exam(s) CT LUMBAR SPINE WO EXAM: CT LUMBAR SPINE WO CLINICAL HISTORY: pain and fracture. TECHNIQUE: Imaging Protocol: Axial computed tomography images with coronal and sagittal reformatted images were created and reviewed COMPARISON: CT CT CHEST/ABD/PEL W from 11/15/[address] THORACIC LUMBAR SPINE WO from 11/15/2020 FINDINGS: Bones: The last intervertebral disc space is designated the L5/S1 level for the numbering purpose of this examination. The vertebral body heights are well maintained. Disc heights are maintained. Prominent endplate ost eophytes. Mild facet joint degenerative changes. Alignment is satisfactory. No fracture is seen. The visualized SI joints and sacrum are will maintained. Soft Tissues: Stable appearance of severe left hydronephrosis with severe parenchymal thinning. Uret er markedly dilated down to the distal portion. Markedly enlarged prostate. Bladder mildly distende d and mild with wall thickening. Two stones are noted in the bladder. Visualized portion of right k [place] unremarkable. IMPRESSION: No evidence of fracture. RADIATION DOSE DELIVERED: 1,296.29mGy.cm Total DLP DATA REPOSITORY: All CT scans at this facility are submitted to the National Radiology Data Registry (NRDR) Dose Index Registry (DIR) with the [employer] (ACR). RADIATION OPTIMIZATION: All CT scans at this facility use at least one of these dose optimization te chniques: automated exposure control; mA and/or kV adjustment per patient size (includes targeted exa ms where dose is matched to clinical indication); or iterative reconstruction.
[2022-05-31] MEDS: oxyCODONE 5 MG TAB PO (13:40)
--- NOTE | 2022-05-31 13:42 | NUR.NOTE ---
Nursing Note: patient continues to be unable to move out of bed even with help of two staff; provider aware.
[2022-05-31 16:14] LABS: Source Nasal/Nares
[2022-05-31 16:51] LABS: COVID-19 PCR Negative (Negative)
--- NOTE | 2022-05-31 17:03 | HPE_ITS ---
Date of service: 05/31/22 Time of Service: 17:03 Assessment and Plan Assessment and plan (1) Lumbar back pain: Status: Acute Assessment and plan: Treat with scheduled tylenol, toradol, flexeril, prn IV morphine, heat, lidocaine patches. C/s PT Consider MRI. (2) Hydronephrosis, left: Status: Chronic Assessment and plan: No intervention at this time, per urology (3) Non-insulin treated type 2 diabetes mellitus: Status: Chronic Assessment and plan: COntinue home metformin. Will check A1C. (4) Peripheral neuropathy: Status: Chronic Assessment and plan: F/u as outpatient (5) DVT prophylaxis: Status: Acute Assessment and plan: SC enoxaparin (6) Discharge planning issues: Status: Acute Assessment and plan: Full code Place in observation status History of Present Illness History of Present Illness Chief Complaint: intractable back pain Narrative: Mr Navas is a 71 yo M w/ PMHx of chronic back pain, as well as h/o prior episode of lower back pain (best treated with aqua therapy), NIDDM2 with neuropathy, chroinc L-sided hydronephrosis, prostatomegaly, who presented to [facility] ED w/ worsening lower back pain x 1 week to the point that for the last two days he could not get out of bed and required EMS to take him to the hospital. The pain is bilateral and spasm-like and worse on change in position to the point that I might pass out. The patient denies a specific injury, but does remember a tweak in his back when he was scooping snow about a week ago and then again when he was carrying large heavy tubs of quilts through a narrow hallway in his house. Yesterday, the pain was so bad that the patient was not a ble to get to the bathroom. He has GERD, and has a hard time tolerating food in bed, so he did not eat. He was still in significant pain despite being treated with toradol, valium, tylenol, and oxycodone in the ER. He specifically denies difficulty with urination other than his usual hesitancy. He is not constipated. HE denies numbness/tingling except chronic numbness associated with his neuropathy of BLEs. His ER workup was unremarkable. His CT showed his previously known baseline L- sided hydronephrosis. Urology did not feel that this was contributing to his symptoms. Observation on the hospitalist service was requested. Review of Systems All systems reviewed & are unremarkable except as noted in HPI and below PFSH All Active Problems (Updated 05/31/22 @ 17:39 by Ny Rodriguez MD) Discharge planning issues (Acute) DVT prophylaxis (Acute) Cholelithiasis (Acute) Fatty liver (Acute) Peripheral neuropathy (Chronic) Non-insulin treated type 2 diabetes mellitus (Chronic) Lumbar back pain (Acute) Fall (Acute) Contusion of chest (Acute) Abdominal contusion (Acute) Rotator cuff tear, right (Acute) Primary osteoarthritis of right knee (Acute) Impingement syndrome of right shoulder (Acute) Tendonitis of long head of biceps brachii of right shoulder (Acute) Gross hematuria (Acute 12/25/15) Hydronephrosis, left (Chronic 04/01/16) Left ureteral stone (Acute 12/25/15) Lower urinary tract symptoms (LUTS) (Acute 01/19/16) Left ureteral stone (Acute) Surgical History (Updated 05/31/22 @ 17:36 by Ny Rodriguez MD) Amputation of one or more toes Colonoscopy - IV Sedation (12/19/14) FLAVIO ROBERTO H/O cystoscopy Family History (Updated 05/31/22 @ 19:17 by Ny Rodriguez MD) Maternal Grandfather Heart disease Mother Diabetes Maternal Aunt Diabetes Sister Cancer pancreatic cancer - smoker Social History Smoking/Tobacco Use Status: Former Tobacco Use Smoking risk assessment performed?: Yes Alcohol Intake: current Alcohol Intake frequency: a few times a month Alcohol type: beer Drug use: Never Substance use type: does not use Current gender identity: male Do you feel safe at home: Yes Do you feel safe in your relationship?: Yes Meds Allergies and Home Medications Allergies Allergy/AdvReac Type Severity Reaction Status Date / Time silver Allergy Verified 03/11/21 13:36 [From Tegaderm AG Mesh] Sulfa (Sulfonamide Allergy fever and Unverified 03/11/21 13:36 Antibiotics) rash lisinopril AdvReac Mild COUGH Unverified 03/11/21 13:36 Home Medications Medication Instructions Recorded Confirmed Type multivitamin (Daily-Matias tablet) 1 ea PO DAILY 01/03/13 05/31/22 History omega 3-dha 60 mg-epa 90 mg-fish 1,500 mg PO DAILY 01/03/13 05/31/22 History oil 500 mg capsule, delayed release (Fish Oil) vitamin B complex 1 ea PO DAILY 01/03/13 05/31/22 History fluocinonide 0.05 % topical cream 1 applic topical PRN PRN 12/19/14 05/31/22 History losartan 25 mg tablet 25 mg PO HS 02/16/16 05/31/22 History simvastatin 20 mg tablet 20 mg PO DAILY 02/17/16 05/31/22 History docusate sodium 100 mg capsule 100 mg PO PRN PRN 11/15/20 05/31/22 History (Dulcolax Stool Softener (docusate)) lidocaine 5 % topical patch 1 patch topical DAILY PRN pain #30 11/15/20 05/31/22 Rx ea tadalafil 5 mg tablet (Cialis) 5 mg PO DAILY #90 tab-caps 09/13/21 05/31/22 Rx metformin 500 mg tablet 500 mg PO DAILY 03/07/22 05/31/22 History Exam Narrative Exam Narrative: General: Pleasant obese male who is A&Ox3, appears comfortable laying nearly flat in bed Neurological: A&Ox3, no focal deficits, guarding/not moving his BLEs off the bed Psychiatric: Appropriate speech pattern/content Skin: Visible skin intact, including B feet HEENT: Atraumatic, normocepahlic, EOMI, MMM, clear oropharynx, no submandibular or cervical lymphadenopathy, ?mild goiter, no JVD Cardiovascular: RRR, no m/r/g Lungs: CTAB anteriorly Gastrointestinal: Soft, nondistended Genitourinary: deferred Extremities: no edema BLEs, s/p amputation of digits 1, 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 No open wounds of B feet, no evidence of infection. 1+ pedal pulses B. Results Imaging Additional studies: CT lumbar spine: No evidence of fracture. Labs 05/31/22 11:00 05/31/22 11:00 Labs: Laboratory Results - last 24 hr 05/31/22 05/31/22 05/31/22 11:00 11:00 12:00 WBC 7.19 RBC 5.04 Hgb 13.9 Hct 41.7 MCV 83 MCH 27.6 MCHC 33.3 RDW 12.7 Plt Count 210 MPV 10.5 Immature Gran % 0.1 Neutrophils % 72.0 Lymphocytes % 19.7 Monocytes % 6.5 Eosinophils % 1.3 Basophils % 0.4 Nucleated RBC % 0.0 Absolute Neutrophils 5.17 Absolute Lymphocytes 1.42 Absolute Monocytes 0.47 Absolute Eosinophils 0.09 Absolute Basophils 0.03 Sodium 140 Potassium 4.7 Chloride 105 Carbon Dioxide 26.7 Anion Gap 8.3 BUN 21 H Creatinine 1.0 Est GFR (CKD-EPI 2020) 81.47 Glucose 141 H Calcium 8.9 Total Bilirubin 0.6 AST 29 ALT 31 Alkaline Phosphatase 74 Creatine Kinase 247 Total Protein 7.0 Albumin 3.5 Lipase 39 Urine Color Yellow Urine Clarity Clear Urine pH 5.5 Ur Specific [employer] >= 1.030 H Urine Protein Trace H Urine Ketones Trace H Urine Blood Negative Urine Nitrite Negative Urine Bilirubin Negative Urine Urobilinogen 0.2 Ur Leukocyte Esterase Negative Urine RBC Negative Urine WBC 0-2 Ur Epithelial Cells Rare Urine Crystals Negative Urine Bacteria Rare Urine Casts 0-2 Hyaline Urine Mucus Trace Ur Culture Indicated? No Urine Glucose Negative COVID-19 Source SARS-CoV-2 (PCR) 05/31/22 16:09 WBC RBC Hgb Hct MCV MCH MCHC RDW Plt Count MPV Immature Gran % Neutrophils % Lymphocytes % Monocytes % Eosinophils % Basophils % Nucleated RBC % Absolute Neutrophils Absolute Lymphocytes Absolute Monocytes Absolute Eosinophils Absolute Basophils Sodium Potassium Chloride Carbon Dioxide Anion Gap BUN Creatinine Est GFR (CKD-EPI 2020) Glucose Calcium Total Bilirubin AST ALT Alkaline Phosphatase Creatine Kinase Total Protein Albumin Lipase Urine Color Urine Clarity Urine pH Ur Specific [employer] Urine Protein Urine Ketones Urine Blood Urine Nitrite Urine Bilirubin Urine Urobilinogen Ur Leukocyte Esterase Urine RBC Urine WBC Ur Epithelial Cells Urine Crystals Urine Bacteria Urine Casts Urine Mucus Ur Culture Indicated? Urine Glucose COVID-19 Source Nasal/Nares SARS-CoV-2 (PCR) Negative Last Vital Signs Temp 36.9 C 05/31/22 16:29 Pulse 70 05/31/22 16:29 Resp 20 05/31/22 16:29 BP 152/74 H 05/31/22 16:29 Pulse Ox 97 05/31/22 16:29 PAWSS Have you Been Recently Intoxicated or Drunk Within the Last 30 days?: No Have you Ever Experienced Previous Episodes of Alcohol Withdrawal?: No Have you ever Experienced Withdrawal Seizures?: No Have you ever Experienced Delirium Tremens(DT)s?: No Have you ever undergone Alcohol Rehabilitation Treatment (i.e, inpt ot outpatient treatment programs)?: No Have you ever Experienced Blackouts?: No Have you ever Combined Alcohol with other Downers within the last 90 days?: No Have you ever Combined Alcohol with any other Substance of Abuse during the last 90 days?: No Positive Blood Alcohol level on Presentation? [PCS.BAL]: No Evidence of Increased Autonomic Activity (i.e. HR>120, tremor, sweating, agitation, nausea)?: No Result: 0 Time Spent Time spent with Patient: 55-74 minutes Time was spent: preparing to see the patient(eg.review tests), obtaining and/or reviewing separately otained hiistory, ordering medications,tests, procedures, referring, communicating with other health care services manager, indepentently interpreting results, counseling the patient and care coordination
[2022-05-31] MEDS: Enoxaparin 40 MG/0.4 ML SYR SC (17:37)
[2022-05-31] MEDS: Acetaminophen 500 MG TAB 1000 MG PO (20:18)
[2022-05-31] MEDS: Docusate Sodium 100 MG CAP PO (20:19)
[2022-05-31] MEDS: Cyclobenzaprine 10 MG TAB PO (20:19)
[2022-05-31] MEDS: Losartan 25 MG TAB PO (21:40)
[2022-05-31] MEDS: Lidocaine 5% Patch 1 PATCH TP (21:41)
--- NOTE | 2022-06-01 | DI.MRI_ITS ---
Exam(s) MR LUMBAR SPINE WO EXAM: MR LUMBAR SPINE WO CLINICAL HISTORY: intractable back pain. TECHNIQUE: Multiplanar multisequence MRI of the Lumbar spine was performed. COMPARISON: CT CT CHEST/ABD/PEL W from 11/15/[address] LUMBAR SPINE WO from 05/31/2022 FINDINGS: Bones: The last intervertebral disc space is designated the L5/S1 level for the numbering purpose of this examination. The vertebral body heights are well maintained. Alignment is satisfactory. The si gnal characteristics are unremarkable. Cord: The conus tip ends at the L1 level. It is of normal size and signal intensity. T12-L1: No disc herniations or bulges are present. No central spinal canal or neural foraminal stenos is. L1-2: No disc herniations or bulges are present. No central spinal canal or neural foraminal stenosis . L2-3: No disc herniations or bulges are present. No central spinal canal or neural foraminal stenosis . L3-4: No disc herniations or bulges are present. No central spinal canal or neural foraminal stenosis . L4-5: There is a left paracentral disc herniation with extrusion posterior to the L5 vertebral body. It causes left lateral recess stenosis and compresses the left L5 nerve root. There are hypertrophi c changes of the facets. These all contribute to cause [id number] central spinal canal stenosi s. No significant neural foraminal stenosis is present. L5-S1: No disc herniations or bulges are present. No central spinal canal or neural foraminal stenosi s.There are degenerative changes of the facets present. Soft tissues: The visualized SI joints and sacrum are well maintained. The paraspinal soft tissues ar e unremarkable. Visualized abdominal organs: There are bilateral simple renal cysts. No follow-up is recommended. T here is persistent left hydronephrosis and left renal cortical atrophy. IMPRESSION: 1. Left paracentral disc herniation at L4-L5 with extrusion posterior to the L5 vertebral body. It c auses left lateral recess stenosis compressing the left L5 nerve root. 2. Degenerative changes at L4-L5 causing [id number] central spinal canal stenosis. 3. Bilateral simple renal cysts. No follow-up is recommended. 4. Stable left hydronephrosis and left renal cortical atrophy. DATA REPOSITORY:
[2022-06-01] MEDS: Ketorolac 15 MG/ML VIAL IVP ×2 (03:25→10:20)
[2022-06-01 06:20] LABS: Abs Immature Grans 0.01 10^3/uL (0.0-0.06); Absolute Basophil Count 0.03 10^3/uL (0.0-0.2); Absolute Eosinophil Count 0.23 10^3/uL (0.0-0.7); Absolute Lymphocyte Count 1.74 10^3/uL (1.2-3.4); Absolute Monocyte Count 0.56 10^3/uL (0.1-0.8); Absolute Neutrophil Count 3.66 10^3/uL (1.2-6.7); Basophils % 0.5; Eosinophils % 3.7; HCT 38.6 % (40.0-50.0); HGB 13.2 g/dL (13.5-17.5); Immature Grans % 0.2; Lymphocytes % 27.9; MCH 27.9 pg (27.0-33.0); MCHC 34.2 % (32.0-36.0); MCV 82 fL (80-95); Neutrophils % 58.7; Platelet Count 186 10^3/uL (130-400); RBC 4.73 10^6/uL (4.36-5.78); RDW 12.5 % (11.8-14.1); RDW-SD 37.3 fL; WBC 6.23 10^3/uL (4.4-10.8)
[2022-06-01 06:32] LABS: Hemoglobin A1C 7.4 % (<5.7)
[2022-06-01 06:33] LABS: Anion Gap 9.1 mmol/L (3-11); BUN 22 mg/dL (7-18); CO2 26.9 mmol/L (21.0-32.0); Calcium 9.1 mg/dL (8.5-10.1); Chloride 105 mmol/L (98-107); Estimated GFR 81.47 (mL/min/1.73m2); Glucose 138 mg/dL (74-106); Magnesium 1.9 mg/dL (1.8-2.4); Potassium 4.3 mmol/L (3.5-5.1); Sodium 141 mmol/L (136-145)
[2022-06-01 07:24] VITALS: BP 150/80; PULSE 66; RESP 16; TEMP 36.5; O2SAT 99
[2022-06-01] MEDS: Multivitamin TAB 1 TAB PO (08:29)
[2022-06-01] MEDS: metFORMIN 500 MG TAB PO (08:29)
[2022-06-01] MEDS: Omega-3 Fatty Acids 1000 MG CAP PO (08:29)
[2022-06-01] MEDS: Acetaminophen 500 MG TAB 1000 MG PO ×3 (08:29→20:36)
[2022-06-01] MEDS: Cyclobenzaprine 10 MG TAB PO ×3 (08:29→20:38)
[2022-06-01] MEDS: Vitamins B Comp w/C TAB 1 TAB PO (08:29)
[2022-06-01] MEDS: Docusate Sodium 100 MG CAP PO ×2 (08:31→20:39)
[2022-06-01] MEDS: Pantoprazole 40 MG TABCR PO (13:38)
[2022-06-01] MEDS: predniSONE 20 MG TAB 60 MG PO (13:39)
--- NOTE | 2022-06-01 14:14 | INITIAL_ITS ---
- If Service Date Differs Date of service: 06/01/22 Time of Service: 14:15 Care Management Initial Assess REASON FOR HOSPITALIZATION:: Intractable back pain PAST MEDICAL HISTORY/PAST SURGICAL HISTORY:: All Active Problems (Updated 05/31/22 @ 17:39 by Ny Rodriguez MD). Discharge planning issues (Acute). DVT prophylaxis (Acute). Cholelithiasis (Acute). Fatty liver (Acute). Peripheral neuropathy (Chronic). Non-insulin treated type 2 diabetes mellitus (Chronic). Lumbar back pain (Acute). Fall (Acute). Contusion of chest (Acute). Abdominal contusion (Acute). Rotator cuff tear, right (Acute). Primary osteoarthritis of right knee (Acute). Impingement syndrome of right shoulder (Acute). Tendonitis of long head of biceps brachii of right shoulder (Acute). Gross hematuria (Acute 12/25/15). Hydronephrosis, left (Chronic 04/01/16). Left ureteral stone (Acute 12/25/15). Lower urinary tract symptoms (LUTS) (Acute 01/19/16). Left ureteral stone (Acute). Surgical History (Updated 05/31/22 @ 17:36 by Ny Rodriguez MD). Amputation of one or more toes. Colonoscopy - IV Sedation (12/19/14). FLAVIO ROBERTO. H/O cystoscopy PREVIOUS FUNCTIONAL STATUS/SOCIAL/FAMILY SUPPORTS:: Martin lives in [place] with his significant other Bassam. He is retired and fully independent with his ADL's and within the community at baseline. CURRENT FUNCTIONAL STATUS:: Martin was sitting in his chair when CM met with him. He is awake and easily engages in conversation. Martin notices a big improvement with his pain and is pleased that he can sit in chair. Martin found aqua therapy through PT to be helpful with his pain in the past. ADVANCE DIRECTIVES:: On file, HCA is Bassam, alt agent is Joselito Pittman Has patient been provided with info about the portal/API?: Yes Did the patient sign up for the portal?: Yes (Prior to admission) CODE STATUS:: Full Code INSURANCE COVERAGE / FINANCIAL ISSUES:: BC BS. Medicare CURRENT HOME/COMMUNITY SERVICES/EQUIPMENT:: CPAP. Hearing Aids PRIMARY CARE PHYSICIAN:: Chavo Flores POTENTIAL DISCHARGE NEEDS:: Outpatient PT, Aqua Therapy. Follow up appointments. Discharge plan of care PATIENT/FAMILY EDUCATION NEEDS:: Review discharge instructions, limitations and and plan to follow up with community providers. Discuss ask me three. TRANSPORTATION:: Via private vehicle with family PLAN:: Anticipate Martin will discharge home with new outpt PT through [facility] (if indicated) when medically ready. He will follow up with community providers and discharge plan of care as prescribed. CM will continue to follow.
[2022-06-01] MEDS: MORPHine 4 MG/ML SYR IVP (14:56)
--- NOTE | 2022-06-01 15:34 | W.PM.PROGNOT ---
Date of Service Date of service: 06/01/22 Time of Service: 15:35 Assessment and Plan Assessment and plan (1) Lumbar back pain with radiculopathy affecting left lower extremity: Status: Acute Assessment and plan: Due to disc herniation of L4-L5 w/ impingement of the left L5 nerve root. Continue multimodal pain management regimen, PT. TENS unit is being considered. Add neurontin and prednisone. (2) Herniation of left side of L4-L5 intervertebral disc: Status: Acute Assessment and plan: As above (3) Lumbar nerve root compression: Status: Acute Assessment and plan: As above (4) Hydronephrosis, left: Status: Chronic Assessment and plan: No intervention at this time, per urology (5) Non-insulin treated type 2 diabetes mellitus: Status: Chronic Assessment and plan: A1C 7.4. Anticipate steroid induced hyperglycemia. Continue metformin, add SSI and if hyperglycemia is severe, would add NPH. (6) Peripheral neuropathy: Status: Chronic Assessment and plan: F/u as outpatient (7) DVT prophylaxis: Status: Acute Assessment and plan: SC enoxaparin (8) Discharge planning issues: Status: Acute Assessment and plan: Full code Continues to require hospitalization. Subjective Subjective Interval history since last seen: The patient is working with PT right now after getting morphine. His IV site is itchy after receiving it and he has noticed that his scalp has been itchy too since getting hospitalized. He was able to get up with PT with a walker and a sit in a chair, but his sit to stand and stand to sitting transitions are painful. He now also reports a LLE pain. S/p MRI today. Denies dizziness, CP, SOB, nausea. Exam Narrative Exam Narrative: General: Pleasant obese male who is A&Ox3, appears comfortable laying nearly flat in bed when seen this morning; also seen ambulating with PT with a walker. HEENT: EOMI, MMM Cardiovascular: RRR, no m/r/g Lungs: CTAB anteriorly Gastrointestinal: Soft, nontender, nondistended Extremities: no edema BLEs, wearing socks, able to bear weight on BLEs while using a walker. Objective Last Vital Signs Temp 36.5 C 06/01/22 07:24 Pulse 66 06/01/22 07:24 Resp 16 06/01/22 07:24 BP 150/80 H 03/15/23 07:24 Pulse Ox 99 06/01/22 07:24 Laboratory Results - last 24 hr 05/31/22 06/01/22 06/01/22 16:09 05:55 05:55 WBC 6.23 RBC 4.73 Hgb 13.2 L Hct 38.6 L MCV 82 MCH 27.9 MCHC 34.2 RDW 12.5 Plt Count 186 MPV 11.0 Immature Gran % 0.2 Neutrophils % 58.7 Lymphocytes % 27.9 Monocytes % 9.0 Eosinophils % 3.7 Basophils % 0.5 Nucleated RBC % 0.0 Absolute Neutrophils 3.66 Absolute Lymphocytes 1.74 Absolute Monocytes 0.56 Absolute Eosinophils 0.23 Absolute Basophils 0.03 Sodium 141 Potassium 4.3 Chloride 105 Carbon Dioxide 26.9 Anion Gap 9.1 BUN 22 H Creatinine 1.0 Est GFR (CKD-EPI 2020) 81.47 Glucose 138 H Hemoglobin A1c Calcium 9.1 Magnesium 1.9 COVID-19 Source Nasal/Nares SARS-CoV-2 (PCR) Negative 06/01/22 05:55 WBC RBC Hgb Hct MCV MCH MCHC RDW Plt Count MPV Immature Gran % Neutrophils % Lymphocytes % Monocytes % Eosinophils % Basophils % Nucleated RBC % Absolute Neutrophils Absolute Lymphocytes Absolute Monocytes Absolute Eosinophils Absolute Basophils Sodium Potassium Chloride Carbon Dioxide Anion Gap BUN Creatinine Est GFR (CKD-EPI 2020) Glucose Hemoglobin A1c 7.4 H Calcium Magnesium COVID-19 Source SARS-CoV-2 (PCR) Objective Narrative Objective Narrative: MRI lumbar spine: 1. Left paracentral disc herniation at L4-L5 with extrusion posterior to the L5 vertebral body.? It causes left lateral recess stenosis compressing the left L5 nerve root. 2. Degenerative changes at L4-L5 causing [id number] central spinal canal stenosis. 3. Bilateral simple renal cysts.? No follow-up is recommended. 4. Stable left hydronephrosis and left renal cortical atrophy.? PAWSS Have you Been Recently Intoxicated or Drunk Within the Last 30 days?: No Have you Ever Experienced Previous Episodes of Alcohol Withdrawal?: No Have you ever Experienced Withdrawal Seizures?: No Have you ever Experienced Delirium Tremens(DT)s?: No Have you ever undergone Alcohol Rehabilitation Treatment (i.e, inpt ot outpatient treatment programs)?: No Have you ever Experienced Blackouts?: No Have you ever Combined Alcohol with other Downers within the last 90 days?: No Have you ever Combined Alcohol with any other Substance of Abuse during the last 90 days?: No Positive Blood Alcohol level on Presentation? [PCS.BAL]: No Evidence of Increased Autonomic Activity (i.e. HR>120, tremor, sweating, agitation, nausea)?: No Result: 0 Time Spent with Patient Time Spent with Patient: 35-49 minutes Time was spent: preparing to see the patient(eg.review tests), obtaining and/or reviewing separately otained hiistory, ordering medications,tests, procedures, referring, communicating with other health careers counsellor, indepentently interpreting results, counseling the patient and care coordination
--- NOTE | 2022-06-01 15:47 | CHAPLAIN ---
Martin and I know each other from the community. 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. He lives in [place] with his significant other, Bassam. Martin said he appears that he has a bulging disc in his back, possibly triggered by shovel snow recently. He is waiting to hear what the directions will be for healing and anticipated that PT would be in later today.
[2022-06-01] MEDS: Gabapentin 100 MG CAP PO ×2 (16:18→20:36)
[2022-06-01 16:31] VITALS: BP 139/79; PULSE 80; RESP 21; TEMP 36.3; O2SAT 97
--- NOTE | 2022-06-01 16:48 | IN_ITS ---
Date of service: 06/01/22 Time of Service: 14:35 PT Notes Visit Reasons: Intractable Back Pain Physical Therapy Inpatient Initial Evaluation Date: 06/01/2022 Referring Doctor: Ny Rodriguez MD PT Orders: PT CONSULT: Limited ability Precautions: Fall. Standard. Activity as tolerated. Back precautions in place. Patient Profile/Admitting Diagnosis: Martin is a 71-year-old male who presented to the ED on 05/31/2022 via EMS due to worsening low back pain that had been going on for 1 week at home resulting in an inability to get out of bed. Patient is admitted for management of symptom exacerbation from recurrent lumbar back pain, left hydronephrosis, peripheral neuropathy, and type 2 diabetes mellitus. Received PT intervention in the [facility] outpatient clinic from 01/03/2013 through 02/01/2013 using superficial pain modalities and aquatics with good result for his low back pain. Lumbar spine MRI impression as follows: 1. Left paracentral disc herniation at L4-L5 with extrusion posterior to the L5 vertebral body.? It causes left lateral recess stenosis compressing the left L5 nerve root. 2. Degenerative changes at L4-L5 causing [id number] central spinal canal stenosis. 3. Bilateral simple renal cysts.? No follow-up is recommended. 4. Stable left hydronephrosis and left renal cortical atrophy.? PMHX: All Active Problems?(Updated 05/31/22 @ 17:39 by Ny Rodriguez MD) Discharge planning issues (Acute) DVT prophylaxis (Acute) Cholelithiasis (Acute) Fatty liver (Acute) Peripheral neuropathy (Chronic) Non-insulin treated type 2 diabetes mellitus (Chronic) Lumbar back pain (Acute) Fall (Acute) Contusion of chest (Acute) Abdominal contusion (Acute) Rotator cuff tear, right (Acute) Primary osteoarthritis of right knee (Acute) Impingement syndrome of right shoulder (Acute) Tendonitis of long head of biceps brachii of right shoulder (Acute) Gross hematuria (Acute 12/25/15) Hydronephrosis, left (Chronic 04/01/16) Left ureteral stone (Acute 12/25/15) Lower urinary tract symptoms (LUTS) (Acute 01/19/16) Left ureteral stone (Acute) Surgical History?(Updated 05/31/22 @ 17:36 by Ny Rodriguez MD) Amputation of one or more toes Colonoscopy - IV Sedation (12/19/14) FLAVIO STEVENSONENH/O cystoscopy Social History/Home Situation: Lives with SO in a private home with 3 steps to enter with rail on B sides. He has a flight of steps to the bedroom on the second floor. Independent with all mobility ADLs prior to admission Equipment Owned/DME: FWW, Subjective: In considerable amount of pain upon attempting to sit up from L sidelying. Nurse notified about pain issue and Nurse Bryson came in with recently ordered Morphine 4 mg via IV. After about 5 minutes, another sidelying to sit attempt was made on the left side of the bed, to no avail. recommended trying the same from the right side and cecilion was able to sit up with lesser pain. Objective: General Observation: Supine in bed. In NAD at rest. Became very anxious with movement. IV access through the L UE. Mental Status: Alert and oriented as to person, place, time, and purpose. Able to pay attention, focus, and respond appropriately. Anxious about moving due to pain response. Pain: Pain shoots up to 10/10 while attempting to sit up from L side lying, decreased to 5-6/10 with IV morphine given and from R sidelying to sit ROM: Back: Only able to bend forward about 20-30 degrees to allow nena sit<>stand, anxious about rotating and tilting trunk to either side due to acuity of symptoms Right Upper Extremity: Shoulder Flexion WFL. Shoulder abduction WFL. Elbow flexion WFL. Wrist flexion WFL. Functional opening and closing of hand WFL. Left Upper Extremity: Shoulder Flexion WFL. Shoulder abduction WFL. Elbow flexion WFL. Wrist flexion WFL. Functional opening and closing of hand WFL. Right Lower Extremity: Hip flexion WFL. Hip abduction WFL. Knee flexion WFL. Ankle dorsiflexion WFL. Ankle plantarflexion WFL. Left Lower Extremity: Hip flexion WFL. Hip abduction WFL. Knee flexion WFL. Ankle dorsiflexion WFL. Ankle plantarflexion WFL. Strength: Right Upper Extremity: Shoulder flexors 4/5. Shoulder abductors 4/5. Elbow flexors 5/5. Elbow extensors 5/5. Cleaning And Washing Equipment Operator strong. Left Upper Extremity: Shoulder flexors 4/5. Shoulder abductors 4/5. Elbow flexors 5/5. Elbow extensors 5/5. Cleaning And Washing Equipment Operator strong. Right Lower Extremity: Hip flexors 3+/5. Hip abductors 3+/5. Knee flexors 4-/5. Knee extensors 4-/5. Ankle dorsiflexors 4-/5. Ankle plantarflexors 4-/5. Left Lower Extremity: Hip flexors 3+/5. Hip abductors 3+/5. Knee flexors 4-/5. Knee extensors 4-/5. Ankle dorsiflexors 4-/5. Ankle plantarflexors 4-/5. Bed Mobility/Transfers: Rolling minimal assist Left side-lying to sit unable Right side-lying to sit minimal assist Stand to sit contact-guard assist Bed to reclining contact-guard assist Gait: Instructed patient with level surface ambulation of 25 feet requiring contact guard assist. Kristin decreased and cautious. Step height and length asymmetric. No LOB. No SOB. later in [facility] afternoon he was able to tolerate another 25 feet with stand by assist using FWW with no report of increased pain. Balance: Static Sitting: Normal Dynamic Sitting: Normal Static Standing: Fair Dynamic Standing: Fair Special Tests: Mobility Limitations Standardized Measure [facility] 6 clicks Basic Mobility Inpatient Short Form: Raw Score: 13 CMS Score: 65% deficit NEURO: L3 myotome intact L4-L5 myotome minimal weakness at 4-/5 L5 myotome minimal weakness at 4-/5 S1 myotome minimal weakness at 4-/5 L3 dermatome intact L4 dermatome intact L5 dermatome intact S1 dermatome impaired on L side, with radicular pain pattern R SLR 20 degrees; L SLR 45 degrees Informed Consent/Education: Patient was instructed in purpose of PT consult and plan of care. Agreeable to proceed with established PT POC to achieve personal goals. THERA EX: Initiated back exercises in supine: PPT with abd drawing in maneuver x 5 with good response AKTC x 10 in supine Pelvic rock x 10 R/L Assessment: Radicular pain through dermatome level S1 with minimal weakness in myotomal level L4, L5, and S1 as seen above. Pain level much improved with IV Morphine at 4 mg. Will assess utility of IFC/TENS as adjucntive therapy for medical management, thera ex, and mobility training in the next session. Premedicate patient for pain. Patient presents with clinical signs and symptoms consistent with current/admitting diagnoses that have resulted to mobility limitations, gait instability, generalized weakness, and overall ADL decline as demonstrated by the following impairment level findings: 1. Decreased strength to B LE major muscle groups 2. Impaired sitting/standing balance 3. Impaired activity tolerance 4. Limitation of joint range of motion in trunk 5. Pain of up to 10/10 with L sidelying to sit Impairments are contributing to the following functional limitations: 1. Decline in bed mobility skills 2. Decline in transfer skills 3. Difficulty with ambulation without assistive device and physical assistance 4. Increased completion time for mobility ADL performance 5. Increased risk for falls 6. Difficulty with managing steps alone safely Patient is assessed as a 95606 moderate complexity based on the following: History: 71-year-old male with past medical history as indicated above Examination: Demonstrable impairment in strength, balance, and mobility level with underlying impairments and functional limitations as exhibited above as well as deficit score of 65% utilizing the [facility] Mobility Inpatient Short Form Presentation: Evolving Decision Makin moderate complexity Goals: Goals X1 week 1. Supine-Sit independent 2. Sit-Supine independent 3. Sit-Stand independent 4. Stand-Sit independent with FWW 5. Bed-Chair independent with FWW 6. Chair-Bed independent with FWW 7. Independent gait on level surface with use of FWW for at least 300 feet without report of pain nor dyspnea 8. Independent stair negotiation while holding onto B rails for at least 12 steps without report of pain nor dyspnea 9. Independent with home exercise program 10. Good static and dynamic standing balance/tolerance Plan of Care/Treatment Plan: 1-2x/day, 7 days/week x 1 week. Plan of care has been reviewed with the BENEFITS TECHNICIAN providing the service under Physical Therapy direction. Initiate Physical Therapy intervention for pain management as needed, strengthening, bed mobility, transfers, gait, stairs, balance training, and use of assistive device. For pain management: 1. IFC to low back using either conventional or acupuncture-like TENS using quadripolar technique. Conventional IFC parameters: pulse duration 50-80 usec, frequency 100-150HZ for 2-3 hours per day. Acupuncture-like IFC pulse duration 150-300 usec; frequency 2-10 Hz for 20-30 minutes. 2. Heating pad to low back area x 30 minutes DISCHARGE RECOMMENDATIONS: [] Home with no services [] [] Home with services [specify] [X] Home with outpatient PT. Home when medically cleared by hospitalist. Recommend outpatient PT services for back rehabilitation, strengthening, and functional mobility training. [] SNF for continued rehabilitation [] [] [facility] [] [] SNF versus LTC based on ability to participate and progress [] TREATMENT CODE/TIME: 43296 x 20 minutes, 71100 x 15 minutes, 26938 x 38 minutes beginning at 14:35 and 17:39 PM. Thank you for the opportunity to participate in the care of this patient. Irlanda Tran PT, DPT, CLT [facility] [place], [place]
[2022-06-01] MEDS: Enoxaparin 40 MG/0.4 ML SYR SC (18:33)
[2022-06-01] MEDS: Simvastatin 20 MG TAB PO (20:38)
[2022-06-01 21:32] VITALS: BP 132/65; PULSE 89; RESP 18; TEMP 36.4; O2SAT 96
[2022-06-01] MEDS: Losartan 25 MG TAB PO (21:33)
[2022-06-02 07:38] VITALS: BP 146/66; PULSE 79; RESP 18; TEMP 35.9; O2SAT 98
[2022-06-02] MEDS: Vitamins B Comp w/C TAB 1 TAB PO (07:39)
[2022-06-02] MEDS: Normal Saline Flush 10 ML SYR IVP (07:39)
[2022-06-02] MEDS: Acetaminophen 500 MG TAB 1000 MG PO (07:39)
[2022-06-02] MEDS: metFORMIN 500 MG TAB PO (07:40)
[2022-06-02] MEDS: predniSONE 20 MG TAB 60 MG PO (07:40)
[2022-06-02] MEDS: Pantoprazole 40 MG TABCR PO (07:40)
[2022-06-02] MEDS: Docusate Sodium 100 MG CAP PO (07:41)
[2022-06-02] MEDS: Gabapentin 100 MG CAP PO (07:41)
[2022-06-02] MEDS: Omega-3 Fatty Acids 1000 MG CAP PO (07:41)
[2022-06-02] MEDS: Multivitamin TAB 1 TAB PO (07:41)
[2022-06-02] MEDS: Cyclobenzaprine 10 MG TAB PO (07:41)
--- NOTE | 2022-06-02 10:23 | DSE_ITS ---
Date of service: 06/02/22 Time of Service: 10:23 DS: Diagnosis Discharge Diagnosis (1) Lumbar back pain with radiculopathy affecting left lower extremity: Status: Acute (2) Herniation of left side of L4-L5 intervertebral disc: Status: Acute (3) Lumbar nerve root compression: Status: Acute (4) Steroid-induced hyperglycemia: Status: Acute (5) Non-insulin treated type 2 diabetes mellitus: Status: Chronic (6) GERD (gastroesophageal reflux disease): Status: Chronic (7) Hydronephrosis, left: Status: Chronic (8) Peripheral neuropathy: Status: Chronic (9) Obesity, morbid, BMI 40.0-49.9: Status: Acute Discharge Plan Disposition Patient Disposition: Home Condition: Improving Discharge Details Reason For Visit: Intractable Back Pain Admit Date/Time: 06/01/22 18:10 Admit Provider: Ny Rodriguez Attending Provider: Ny Rodriguez Primary Care Provider: Chavo Flores [facility] Course Hospital Course: Mr Navas is a 71 year old male with PMHx of NIDDM2, HTN, hyperlipidemia, GERD, obesity with BMI of 41.8 kg/m2, who was a patient on [facility] hospitalist service from 05/31/22 until 06/02/22 having presented with intractable lower back pain and inability to ambulate or get up from the bed. He did not have symptoms c/w Cauda equina but did have BLE sensory deficits c/w his chronic known BLE peripheral neuropathy. The patient had a negative CT of the lumbar spine in the ED. He was treated with a multimodal pain regimen including scheduled acetaminophen, IV toradol, flexeril, lidocaine patches, prn morphine, gabapentin, and mobilized with physical therapy with the use of a walker. Prednisone was added when the patient started to report LLE pain suggestive of radiculopathy. MRI of his lumbar spine demonstrated a left paracentral disc herniation at L4-5 level with extrusion posterior to the L5 vertebral body, causing left lateral recess stenosis and compressing the left L5 nerve root. He did also have degenerative changes at L4-5 causing mild to moderate spinal stenosis. His chronic L-sided hydronephrosis appeared stable and did not require intervention on this admission. This morning, the patient's pain is much better managed. He is able to ambulate with the use of the walker, get up from the bed/chair, self-toilet, walk up and down stairs. His pain is controlled enough where he feels comfortable going home. Physical therapy recommends a referral to outpatient PT, and aquatherapy was especially helpful to this patient in the past. He is encouraged to continue using a walker. He is being given a limited prescription of oxycodone (5 mg tabs, 10 total) and is instructed not to drive while using medications that could impair him. The patient did report significant GERD symptoms and was started on a PPI. The patient has evidence of steroid-induced hyperglycemia (BGs in 200s) while on his usual metformin 500 mg PO daily, and his A1C is 7.4 on this admission. His metformin dose was increased to 500 mg PO BID on discharge. The patient is asked to follow up with his PCP in 1-2 weeks. Care for patient in addition to completion of his discharge summary on day of discharge took 45 minutes. Home Meds and New Rx's Prescriptions: New cyclobenzaprine 10 mg Tablet 10 mg PO TID PRN PRN (Reason: muscle spasm) Qty: 30 0RF acetaminophen 500 mg Tablet 1,000 mg PO TID Qty: 0 0RF docusate sodium [Colace] 100 mg Capsule 100 mg PO BID PRN PRN (Reason: constipation) Qty: 0 0RF Rx Instructions: while taking oxycodone gabapentin 100 mg Capsule 100 mg PO TID Qty: 30 0RF ibuprofen 600 mg Tablet 600 mg PO TID Qty: 30 0RF oxycodone 5 mg Tablet 5 mg PO Q6H PRN PRN (Reason: pain) Qty: 10 0RF pantoprazole 40 mg Tablet,Delayed Release (Dr/Ec) 40 mg PO DAILY@0730 Qty: 30 0RF prednisone 20 mg tablet 40 mg PO DAILY Qty: 6 0RF Continued tadalafil [Cialis] 5 mg tablet 5 mg PO DAILY Qty: 90 3RF Hold Instructions: Home Medication placed on hold at Doctor's office Patient Comments: 02/16/17 2.5MG DAILY losartan 25 MG tablet 25 mg PO HS simvastatin 20 MG tablet 20 mg PO DAILY multivitamin [Daily-Matias] 1 EACH tablet 1 ea PO DAILY Patient Comments: 10/27/16 temp on hold while pt on Cipro vitamin B complex 1 EACH capsule 1 ea PO DAILY Patient Comments: 10/27/16 temp on hold while pt on Cipro Fish Oil 500 MG capsule,delayed release(DR/EC) 1,500 mg PO DAILY fluocinonide 15 GM cream 1 applic Topical PRN PRN docusate sodium [Dulcolax Stool Softener (dss)] 100 mg Capsule 100 mg PO PRN PRN lidocaine 5 % adhesive patch,medicated 1 patch topical DAILY PRN (Reason: pain) Qty: 30 0RF Rx Instructions: leave on most painful area for up to 12 hrs Changed metformin 500 mg tablet 500 mg PO BID Qty: 60 0RF Discharge Instructions Instructions: Ibuprofen (By mouth), Prednisone (By mouth), Cyclobenzaprine (By mouth), Gabapentin (By mouth), Oxycodone, Rapid Release (By mouth), Pantoprazole (By mouth), GERD (Gastroesophageal Reflux Disease) (DC), Acute Low Back Pain (ED), Lumbar Radiculopathy (ED) Additional Instructions: You must not drive while taking oxycodone or if flexeril makes you somnolent. Ambulate with a walker until you feel like your symptoms no longer warrant it. Follow up with your PCP in 1-2 weeks. Follow up with physical therapy. Return to the hospital with any fever, bleeding, chest pain, shortness of breath, or pain that cannot be managed at home. Return to the hospital if you lose sensation in your genital region or lose control of your bladder or bowel as these could be signs of a serious problem with your back requiring surgery. Your metformin dose was increased based on your A1C and the fact that the prednisone tends to raise blood sugars. Care Plan Goals: Home with a referral to outpatient PT. Referrals: Chavo Flores MD [Primary Care Provider] - Cosmo Tan PT [PHYSICAL THERAPIST] - (L4-5 herniated disc with L5 nerve root compression and radiculopathy) Activity:: Activity as Tolerated Equipment/Supplies:: No Equipment Needed Diet:: consistent carb heart healthy Discharge Orders Discharge Orders: Discharge Order (Routine); Ordered 06/02/22 Ordered By: Ny Rodriguez DS: Summary Time Spent with Patient providing and/or coordinating discharge services: Greater than 30 minutes Status at Discharge Functional status at discharge: uses cane/walker Overall status at discharge: patient is progressing back to baseline Mental Status: mental status grossly normal Speech and Movement: speech and movement normal Mood: congruent mood Affect: animated Exam Narrative Exam Narrative: General: Pleasant obese male who is A&Ox3, sitting up in a chair and looks much more comfortable, in great spirits HEENT: EOMI, MMM Cardiovascular: RRR, no m/r/g Lungs: CTAB Gastrointestinal: Soft, nontender, nondistended Extremities: no edema BLEs, able to move BLEs while seated in a chair Psych Mental Status: mental status grossly normal Speech and Movement: speech and movement normal Mood: congruent mood Affect: animated DS: Data Vitals/I&O Vitals and I&O: Vital Signs Temperature 35.9 C L 06/02/22 07:38 Temperature Source Tympanic 06/02/22 07:38 Pulse 79 06/02/22 07:38 Pulse Rhythm Regular 06/02/22 07:40 Respiratory Rate 18 06/02/22 07:38 Respiratory Effort Normal, Non-Labored 06/02/22 07:40 Respiratory Depth Normal 06/02/22 07:40 Respiratory Pattern Normal 06/02/22 07:40 Blood Pressure 146/66 H 06/02/22 07:38 Blood Pressure Mean 72 05/31/22 10:46 Blood Pressure Position Supine 05/31/22 10:18 Pulse Oximetry 98 06/02/22 07:38 Oxygen Delivery Method Room Air 06/02/22 07:38 Oxygen Flow Rate 0 06/02/22 07:38 Pain Level 2 06/02/22 07:39 Comment pT states a burst of pain with any activity; RN infomred of BP 06/01/22 07:24 Intake & Output 06/01/22 06/01/22 06/02/22 11:59 23:59 11:59 Intake Total 250 / 730 480 / 730 Output Total 1200 / 1600 400 / 1600 Balance -950 / -870 80 / -870 Intake: IV Oral 240 / 720 480 / 720 Output: Urine 1200 / 1600 400 / 1600 Other: Urine Color Yellow Yellow Yellow Urine Appearance Clear Clear Clear Sediment Urine Odor None Comment Collected via urinal Per patient report Stool Size Smear Stool Characteristics Soft Brown Voiding Methods Urinal Urinal Toilet Data Completed and Pending Completed studies during hospitalization [Text1]: CT lumbar spine: No evidence of fracture. MRI lumbar spine: 1. Left paracentral disc herniation at L4-L5 with extrusion posterior to the L5 vertebral body.? It causes left lateral recess stenosis compressing the left L5 nerve root. 2. Degenerative changes at L4-L5 causing [id number] central spinal canal stenosis. 3. Bilateral simple renal cysts.? No follow-up is recommended. 4. Stable left hydronephrosis and left renal cortical atrophy.? PFSH All Active Problems (Updated 06/02/22 @ 10:48 by Ny Rodriguez MD) Steroid-induced hyperglycemia (Acute) Obesity, morbid, BMI 40.0-49.9 (Acute) GERD (gastroesophageal reflux disease) (Chronic) Lumbar back pain with radiculopathy affecting left lower extremity (Acute) Lumbar nerve root compression (Acute) Herniation of left side of L4-L5 intervertebral disc (Acute) Discharge planning issues (Acute) DVT prophylaxis (Acute) Cholelithiasis (Acute) Fatty liver (Acute) Peripheral neuropathy (Chronic) Non-insulin treated type 2 diabetes mellitus (Chronic) Lumbar back pain (Acute) Fall (Acute) Contusion of chest (Acute) Abdominal contusion (Acute) Rotator cuff tear, right (Acute) Primary osteoarthritis of right knee (Acute) Impingement syndrome of right shoulder (Acute) Tendonitis of long head of biceps brachii of right shoulder (Acute) Gross hematuria (Acute 12/25/15) Hydronephrosis, left (Chronic 04/01/16) Left ureteral stone (Acute 12/25/15) Lower urinary tract symptoms (LUTS) (Acute 01/19/16) Left ureteral stone (Acute) Surgical History (Updated 05/31/22 @ 17:36 by Ny Rodriguez MD) Amputation of one or more toes Colonoscopy - IV Sedation (12/19/14) FLAVIO ROBERTO H/O cystoscopy Family History (Updated 05/31/22 @ 19:17 by Ny Rodriguze MD) Maternal Grandfather Heart disease Mother Diabetes Maternal Aunt Diabetes Sister Cancer pancreatic cancer - smoker Social History Smoking/Tobacco Use Status: Former Tobacco Use Smoking risk assessment performed?: Yes Alcohol Intake: current Alcohol Intake frequency: a few times a month Alcohol type: beer Drug use: Never Substance use type: does not use Current gender identity: male Do you feel safe at home: Yes Do you feel safe in your relationship?: Yes Time Spent with Patient Time Spent with Patient: 45-69 minutes Time was spent: preparing to see the patient(eg.review tests), obtaining and/or reviewing separately otained hiistory, ordering medications,tests, procedures, referring, communicating with other health child care group leader, indepentently interpreting results, counseling the patient and care coordination
--- NOTE | 2022-06-02 11:06 | CMDISCH_ITS ---
- If Service Date Differs Date of service: 06/02/22 Time of Service: 11:06 LACE Index Scoring Tool - Questions: Length of Stay (in days): 2 Acuity (Admit via E.D.?): Yes Comorbidities: Diabetes w/o Complication E.D. Visits: 2 - Answers: Total Score: 8 Risk of Readmission: Low Risk Care Management Discharge Reason for Hospitalization: Intractable back pain Discharge Plan: Martin is discharged home via private vehicle with family. He will follow up with community providers and discharge plan of care as prescribed. He will follow up with PT as an outpatient and PCP, as scheduled. New RX's are transferred to [facility] [place], no VNA services are ordered. Patient/Family Education Needs: Review discharge instructions, limitations, medications and plan to follow up with PCP and PT. Discuss ask me three. Services Needed at Discharge: Physical Therapy ([facility], referral placed)
--- NOTE | 2022-06-02 15:09 | PTTR_ITS ---
Date of service: 06/02/22 Time of Service: 08:45 PT Notes Visit Reasons: Intractable Back Pain Inpatient Physical Therapy Treatment Note [facility] Date: 06/02/2022 PRECAUTIONS: Activity as tolerated, back pain SUBJECTIVE: Martin is pleasant and agreeable to participating in PT. He reports that he slept well last night, and feels much better this morning. He reports that he has been able to get out of bed and walk to the bathroom with limited discomfort. OBJECTIVE: PAIN: Patient rates pain as 1-2/10 with all mobility and at rest BED MOBILITY/TRANSFERS Rolling L/R: S with instruction for log-rolling Supine-sit: I Sit-supine: I Sit-stand: I Stand-sit: I Bed-Chair: S Chair-bed: S GAIT Assistive Device: FWW Weight bearing: Full Assist: S Distance: 350' Deviation: Gait unremarkable THEREX: Patient was issued and instructed in a HEP for core stabilization, to include: PPT, bridging with PPT, hook-lying bent knee fallouts with PPT and hook-lying marching with core activation. STAIRS: Up/down 3x4 and 2x6 using B rails and a step-to pattern with SBA ASSESSMENT: Patient tolerated session well, with minimal complaint of back discomfort with activity and at rest. He demonstrates independence with transfers and bed mobility at this time, and demonstrates good use of log- rolling technique following instruction. PLAN: Patient to discharge to home later today, per provider. Recommend follow up with OP PT for continued core stabilization and potential aquatic therapy for back pain relief. TREATMENT CODE/TIME: Session 1: 30 minutes; 40581 x2 (08:45) Session 2: 8 minutes; 16016 (11:30)
--- NOTE | 2022-06-03 08:41 | INDS_ITS ---
PT Notes Visit Reasons: Intractable Back Pain Physical Therapy Inpatient Initial Evaluation Date: 06/02/2022 Dates of Service: 06/01/2022 through 06/02/2022 This is a clinical summary of care provided for the duration of dates listed above. No charge was made in the completion of this documentation. Referring Doctor: Ny Rodriguez MD PT Orders: PT CONSULT: Limited ability Precautions: Fall. Standard. Activity as tolerated.? Back precautions in place. Patient Profile/Admitting Diagnosis:Maciel Salazar is a 71-year-old male who presented to the ED on 05/31/2022 via EMS due to worsening low back pain that had been going on for 1 week at home resulting in an inability to get out of bed.? Patient is admitted for management of symptom exacerbation from recurrent lumbar back pain, left hydronephrosis, peripheral neuropathy, and type 2 diabetes mellitus. Received PT intervention in the [facility] outpatient clinic from 01/03/2013 through 02/01/2013 using superficial pain modalities and aquatics with good result for his low back pain.? Lumbar spine MRI impression as follows: 1. Left paracentral disc herniation at L4-L5 with extrusion posterior to the L5 vertebral body.? It causes left lateral recess stenosis compressing the left L5 nerve root. 2. Degenerative changes at L4-L5 causing [id number] central spinal canal stenosis. 3. Bilateral simple renal cysts.? No follow-up is recommended. 4. Stable left hydronephrosis and left renal cortical atrophy.? PMHX: All Active Problems?(Updated 05/31/22 @ 17:39 by Ny Rodriguez MD) Discharge planning issues (Acute) DVT prophylaxis (Acute) Cholelithiasis (Acute) Fatty liver (Acute) Peripheral neuropathy (Chronic) Non-insulin treated type 2 diabetes mellitus (Chronic) Lumbar back pain (Acute) Fall (Acute) Contusion of chest (Acute) Abdominal contusion (Acute) Rotator cuff tear, right (Acute) Primary osteoarthritis of right knee (Acute) Impingement syndrome of right shoulder (Acute) Tendonitis of long head of biceps brachii of right shoulder (Acute) Gross hematuria (Acute 12/25/15) Hydronephrosis, left (Chronic 04/01/16) Left ureteral stone (Acute 12/25/15) Lower urinary tract symptoms (LUTS) (Acute 01/19/16) Left ureteral stone (Acute) Surgical History?(Updated 05/31/22 @ 17:36 by Ny Rodriguez MD) Amputation of one or more toes Colonoscopy - IV Sedation (12/19/14) FLAVIO GAMINOENH/O cystoscopy Social History/Home Situation: Lives with SO in a private home with 3 steps to enter with rail on B sides.? He has a flight of steps to the bedroom on the second floor.? Independent with all mobility ADLs prior to admission Equipment Owned/DME: FWW, SPC Subjective: NT. See most recent WANT AD CLERK notes. Objective: General Observation: NT. See most recent WANT AD CLERK notes. Mental Status: NT. See most recent WANT AD CLERK notes. Pain: NT. See most recent WANT AD CLERK notes. ROM: Back:? Only able to bend forward about 20-30 degrees to allow nena sit<>stand,? anxious about rotating and tilting trunk to either side due to acuity of symptoms Right Upper Extremity: ? Shoulder Flexion WFL. Shoulder abduction WFL. Elbow flexion WFL. Wrist flexion WFL. Functional opening and closing of hand WFL. Left Upper Extremity:? Shoulder Flexion WFL. Shoulder abduction WFL. Elbow flexion WFL. Wrist flexion WFL. Functional opening and closing of hand WFL. Right Lower Extremity: Hip flexion WFL. Hip abduction WFL. Knee flexion WFL. Ankle dorsiflexion WFL. Ankle plantarflexion WFL. Left Lower Extremity: Hip flexion WFL. Hip abduction WFL. Knee flexion WFL. Ankle dorsiflexion WFL. Ankle plantarflexion WFL. Strength: Right Upper Extremity: Shoulder flexors 4/5. Shoulder abductors 4/5. Elbow flexors 5/5. Elbow extensors 5/5. Battery Stacker strong. Left Upper Extremity: Shoulder flexors 4/5. Shoulder abductors 4/5. Elbow flexors 5/5. Elbow extensors 5/5. Battery Stacker strong. Right Lower Extremity: Hip flexors 3+/5. Hip abductors 3+/5. Knee flexors 4-/5. Knee extensors 4-/5. Ankle dorsiflexors 4-/5. Ankle plantarflexors 4-/5. Left Lower Extremity: Hip flexors 3+/5. Hip abductors 3+/5. Knee flexors 4-/5. Knee extensors 4-/5. Ankle dorsiflexors 4-/5. Ankle plantarflexors 4-/5. BED MOBILITY/TRANSFERS? Rolling L/R: S with instruction for log-rolling Supine-sit: I? Sit-supine: I ? Sit-stand: I? Stand-sit: I ? Bed-Chair: S? Chair-bed: S ? GAIT? Assistive Device: FWW? Weight bearing: Full Assist: S ? Distance:? 350'? Deviation: Gait unremarkable? STAIRS: Up/down 3x4 and 2x6 using B rails and a step-to pattern with SBA? Balance: Static Sitting: Normal Dynamic Sitting: Normal Static Standing: Fair Dynamic Standing: Fair NEURO: L3 myotome intact L4-L5 myotome minimal weakness at 4-/5 L5 myotome minimal weakness? at 4-/5 S1 myotome minimal weakness? at 4-/5 L3 dermatome intact L4 dermatome intact L5 dermatome intact S1 dermatome impaired on L side,? with radicular pain pattern R SLR 20 degrees; L SLR 45 degrees THERA EX: Initiated back exercises in supine: PPT with abd drawing in maneuver x 5 with good response ? AKTC x 10 in supine ? Pelvic rock x 10 R/L Assessment: Radicular pain through dermatome level S1 with minimal weakness in myotomal level L4, L5, and S1 as seen above.? Pain level much improved with IV Morphine at 4 mg.? Will assess utility of IFC/TENS as adjucntive therapy for medical management, thera ex, and mobility training in the next session. Premedicate patient for pain. Patient presents with clinical signs and symptoms consistent with current/admitting diagnoses that have resulted to mobility limitations, gait instability, generalized weakness, and overall ADL decline as demonstrated by the following impairment level findings: 1.? Decreased strength to? B LE major muscle groups 2.? Impaired sitting/standing balance 3.? Impaired activity tolerance 4.? Limitation of joint range of motion in trunk 5.? Pain of up to 10/10 with L sidelying to sit Impairments are contributing to the following functional limitations: 1.? Decline in bed mobility skills 2.? Decline in transfer skills 3.? Difficulty with ambulation without assistive device and physical assistance 4.? Increased completion time for mobility ADL performance 5.? Increased risk for falls 6.? Difficulty with managing steps alone safely Goals: Goals X1 week 1. Supine-Sit independent MET 2. Sit-Supine independent MET 3. Sit-Stand independent MET 4. Stand-Sit independent with FWW MET 5. Bed-Chair independent with FWW NOT MET 6. Chair-Bed independent with FWW NOT MET 7. Independent gait on level surface with use of FWW for at least 300 feet without report of pain nor dyspnea NOT MET 8. Independent stair negotiation while holding onto B rails for at least 12 steps without report of pain nor dyspnea NOT MET 9. Independent with home exercise program NOT MET 10. Good static and dynamic standing balance/tolerance NOT MET For pain management: 1. IFC to low back using either conventional or acupuncture-like TENS using quadripolar technique.? Conventional IFC parameters: pulse duration 50-80 usec, frequency 100-150HZ for 2-3 hours per day.? Acupuncture-like IFC pulse duration 150-300 usec; frequency 2-10 Hz for 20-30 minutes. 2. Heating pad to low back area x 30 minutes DISCHARGE RECOMMENDATIONS: [] ? Home with no services [] [] ? Home with services [specify] [X] ? Home with outpatient PT. Home when medically cleared by hospitalist.? Recommend outpatient PT services for back rehabilitation, strengthening, and functional mobility training. [] ? SNF for continued rehabilitation [] [] ? Intermediate Care [] [] ? SNF versus LTC based on ability to participate and progress [] TREATMENT CODE/TIME: TN Thank you for the opportunity to participate in the care of this patient. Irlanda Tran PT, DPT, CLT [facility] [place], [place]
== END 2022-06-02 13:12 | disposition home or self-care (01) | DRG 552 ==
LOC: ER 15:28 → MS 16:24
PROVIDERS: Admitting Provider Internal Medicine; Emergency Provider Physician Assistant; PCP Internal Medicine; Visit Provider Internal Medicine
DX: M51.16 Intervertebral disc disorders with radiculopathy, lumbar region (principal); N13.30 Unspecified hydronephrosis; Z68.41 Body mass index [BMI] 40.0-44.9, adult; M48.061 Spinal stenosis, lumbar region without neurogenic claudication; E11.42 Type 2 diabetes mellitus with diabetic polyneuropathy; N40.0 Benign prostatic hyperplasia without lower urinary tract symptoms; K21.9 Gastro-esophageal reflux disease without esophagitis; K80.20 Calculus of gallbladder without cholecystitis without obstruction; K76.0 Fatty (change of) liver, not elsewhere classified; M17.11 Unilateral primary osteoarthritis, right knee; E66.9 Obesity, unspecified; E11.65 Type 2 diabetes mellitus with hyperglycemia; T38.0X5A Adverse effect of glucocorticoids and synthetic analogues, initial encounter
CPT/HCPCS: 36415; 51798; 80048; 80053; 82550; 83690; 87635; 96365; 96375; 96376; 97110; 97162; 97530; 99285; J1650; 72131; 72148; 81003; 81015; 83036; 83735; 85025; 99223; 99233; 99239; J0131; J1885; J2270; J3360; J7512

== ENCOUNTER 2022-09-01 00:51 | Outpatient (CLI) | payer MEDICARE, BC, SELFPAY ==
--- NOTE | 2022-09-01 10:30 | DI.US_ITS ---
Exam(s) US RENAL EXAM: US RENAL CLINICAL HISTORY: monitoring right kidney. L has severe hydro Z13.30 TECHNIQUE: Ultrasound of both kidneys performed using standard protocol. COMPARISON: CT CT CHEST/ABD/PEL W from 11/15/2020 US US RENAL from 03/03/2022 FINDINGS: KIDNEYS: Right kidney remains unremarkable in appearance. Right ureterovesical jet was identified. No abnormal focal findings the right kidney and the right kidney cortical thickness remains normal. The left kidney again exhibits severe hydronephrosis. Thinning of the cortical mantle is again noted . Left ureterovesical jet was again not identified. URINARY BLADDER: Prevoid volume is 299 cc Postvoid volume is 63 cc Prostate size appears upper normal. Mildly lobulated. No evidence of bladder mass nor diverticuli. IMPRESSION: 1. There is persistent severe left-sided hydronephrosis. No improvement. Recommend CT scan to comp ared to the prior CT scan of the 11/15/2020. DATA REPOSITORY:
== END 2022-09-01 01:11 ==
LOC: DI 00:51
PROVIDERS: PCP Internal Medicine; Visit Provider Nurse Practitioner Gerontology
DX: N13.2 Hydronephrosis with renal and ureteral calculous obstruction (principal)
CPT/HCPCS: 76770; 84520; 82565

== ENCOUNTER 2022-09-01 01:07 | Outpatient (CLI) | payer MEDICARE, BC, SELFPAY ==
[2022-09-01 10:24] LABS: BUN 22 mg/dL (7-18); CREATININE 1.2 mg/dL (0.70-1.30); Estimated GFR 65.46 (mL/min/1.73m2)
== END 2022-09-01 01:08 | disposition home or self-care (01) ==
LOC: LBO 01:07
PROVIDERS: PCP Internal Medicine; Visit Provider Nurse Practitioner Gerontology
DX: N13.30 Unspecified hydronephrosis (principal); R39.89 Other symptoms and signs involving the genitourinary system
CPT/HCPCS: 84520; 82565

== ENCOUNTER → 2022-09-15 14:22 | Outpatient (BNVA) | payer MEDICARE, BC, SELFPAY | PROVIDERS: PCP Internal Medicine; Visit Provider Nurse Practitioner Gerontology | DX: N40.1 Benign prostatic hyperplasia with lower urinary tract symptoms (principal); R39.89 Other symptoms and signs involving the genitourinary system; N13.30 Unspecified hydronephrosis | CPT/HCPCS: 99213 ==

== ENCOUNTER 2023-01-10 16:21 | Outpatient (REF) | payer MEDICARE, BC, SELFPAY ==
[2023-01-10 21:45] LABS: TSH 2.33 uIU/mL (0.36-3.74); Vitamin B12 488 pg/mL (193-986)
== END 2023-01-10 16:22 | disposition home or self-care (01) ==
LOC: NCHCN 16:21
PROVIDERS: PCP Internal Medicine; Visit Provider Internal Medicine
DX: R41.3 Other amnesia (principal)
CPT/HCPCS: 82607; 84443

== ENCOUNTER → 2023-02-22 01:46 | Outpatient (CLI) | payer MEDICARE, BC, SELFPAY ==
--- NOTE | 2023-02-22 06:45 | DI.US_ITS ---
Exam(s) US RENAL EXAM: US RENAL CLINICAL HISTORY: monitoring right kidney,lt hydronephrosis,lower urinary tract symptoms,. TECHNIQUE: Griffin scale, color and spectral Doppler were used. COMPARISON: CT CT CHEST/ABD/PEL W from 11/15/2020 US US RENAL from 09/01/2022 FINDINGS: Renal size in cm: Right: 11.4 , normal parenchymal thickness. Left: 14.8, marked parenchymal thinn ing. Echogenicity: Normal Hydronephrosis: Severe left hydronephrosis. No right hydronephrosis. Cyst or mass: Small right renal cyst. No follow-up recommended. Nephrolithiasis: No Hepatic steatosis noted. Bladder:Not well distended. Question 1 cm echogenic focus on the left side of the posterior bladder which could represent stone versus artifact. Prevoid vol:93 cc Postvoid vol:Patient unable to void. IMPRESSION: Severe left hydronephrosis. Question of artifact versus 1 cm calcification at the region of the left ureterovesical junction. CT could be performed for further evaluation. No right hydronephrosis. DATA REPOSITORY:
== END ==
PROVIDERS: PCP Internal Medicine; Visit Provider Nurse Practitioner Gerontology
DX: N13.39 Other hydronephrosis (principal)
CPT/HCPCS: 76770

== ENCOUNTER 2023-03-23 03:05 | Outpatient (CLI) | payer MEDICARE, BC, SELFPAY ==
[2023-03-23 08:19] LABS: BUN 23 mg/dL (7-18); CREATININE 1.3 mg/dL (0.70-1.30)
== END 2023-03-23 03:06 | disposition home or self-care (01) ==
LOC: LBO 03:05
PROVIDERS: PCP Internal Medicine; Visit Provider Nurse Practitioner Gerontology
DX: N13.30 Unspecified hydronephrosis (principal); R39.9 Unspecified symptoms and signs involving the genitourinary system
CPT/HCPCS: 36415; 84520; 82565

== ENCOUNTER → 2023-03-30 14:31 | Outpatient (BNVA) | payer MEDICARE, BC, SELFPAY | PROVIDERS: PCP Internal Medicine; Visit Provider Nurse Practitioner Gerontology | DX: R39.89 Other symptoms and signs involving the genitourinary system (principal); N13.30 Unspecified hydronephrosis | CPT/HCPCS: 99213 ==

== ENCOUNTER → 2023-04-11 08:45 | Outpatient (BNVA) | payer MEDICARE, BC, SELFPAY | PROVIDERS: PCP Family Medicine; Referring Provider Family Medicine; Visit Provider Student in an Organized Health Care Education/Training Program | DX: M65.322 Trigger finger, left index finger (principal) | CPT/HCPCS: 99213 ==

== ENCOUNTER 2023-06-01 14:31 | Outpatient (REF) | payer MEDICARE, BC, SELFPAY ==
[2023-06-01 16:15] LABS: Anion Gap 8.6 mmol/L (3-11); BUN 18 mg/dL (7-18); CO2 29.4 mmol/L (21.0-32.0); CREATININE 1.2 mg/dL (0.70-1.30); Calcium 9.4 mg/dL (8.5-10.1); Chloride 106 mmol/L (98-107); Estimated GFR 65.06 (mL/min/1.73m2); Glucose 134 mg/dL (74-106); Potassium 4.2 mmol/L (3.5-5.1); Sodium 144 mmol/L (136-145)
[2023-06-01 16:24] LABS: Bilirubin Negative (Negative); Blood Large (Negative); Clarity Clear (Clear); Glucose Negative (Negative); Ketones Negative (Negative); Leukocyte Esterase Negative (Negative); Nitrite Negative (Negative); Specific Gravity >= 1.030 (1.005-1.025); Urobilinogen 0.2 mg/dL (Up to 0.2); pH 5.5 (5-8)
[2023-06-01 16:47] LABS: Bacteria Rare HPF (Negative); C & S Indicated? No; Casts Negative LPF (Negative); Crystals Negative HPF (Negative); Epithelial Cells Rare HPF (Negative); Mucus Negative (Negative); RBC >50 HPF (0-2)
== END 2023-06-01 14:32 | disposition home or self-care (01) ==
LOC: NCHCN 14:31
PROVIDERS: PCP Family Medicine; Visit Provider Family Medicine
DX: R31.9 Hematuria, unspecified (principal)
CPT/HCPCS: 80048; 81003; 81015

== ENCOUNTER 2023-07-03 18:05 | Outpatient (REF) | payer MEDICARE, BC, SELFPAY ==
[2023-07-03 22:16] LABS: HCT 40.4 % (40.0-50.0); HGB 13.3 g/dL (13.5-17.5); MCH 27.4 pg (27.0-33.0); MCHC 32.9 % (32.0-36.0); MCV 83 fL (80-95); MPV 11.4 fL (8.0-11.0); Platelet Count 276 10^3/uL (130-400); RBC 4.86 10^6/uL (4.36-5.78); RDW 12.6 % (11.8-14.1); RDW-SD 38.5 fL; WBC 8.55 10^3/uL (4.4-10.8)
[2023-07-03 23:05] LABS: Hemoglobin A1C 6.7 % (<5.7)
== END 2023-07-03 18:06 | disposition home or self-care (01) ==
LOC: NCHCN 18:05
PROVIDERS: PCP Family Medicine; Visit Provider Family Medicine
DX: E11.9 Type 2 diabetes mellitus without complications (principal)
CPT/HCPCS: 85027; 83036

== ENCOUNTER 2023-07-11 08:57 | Outpatient (CLI) | payer MEDICARE, BC, SELFPAY ==
--- NOTE | 2023-07-11 09:15 | RT.EKG_ITS ---
APPROVED REPORT Exam: Resting ECG Reason for Exam: IRREGULAR HEART BEAT Patient Location: O HR:89 bpm ECG Measurements Heart Rate 89 AXIS IN 181 P 45 QRSd 101 QRS 12 QT 404 T 48 QTc 492 Conclusion Sinus rhythm...normal P axis, V-rate 50- 99 Normal Electrocardiogram
== END 2023-07-11 08:58 | disposition home or self-care (01) ==
LOC: CARDOPNVT 08:57
PROVIDERS: PCP Family Medicine; Visit Provider Family Medicine
DX: I49.9 Cardiac arrhythmia, unspecified (principal)
CPT/HCPCS: 93005; 93010

== ENCOUNTER → 2023-07-12 08:47 | Outpatient (BNVA) | payer MEDICARE, BC, SELFPAY | PROVIDERS: PCP Family Medicine; Referring Provider Family Medicine; Visit Provider Student in an Organized Health Care Education/Training Program | DX: M65.322 Trigger finger, left index finger (principal) | CPT/HCPCS: 99213 ==

== ENCOUNTER 2023-07-13 18:30 | Outpatient (REF) | payer MEDICARE, BC, SELFPAY | END 2023-07-13 18:31 | disposition home or self-care (01) | LOC: NCHCN 18:30 | PROVIDERS: PCP Family Medicine; Visit Provider Family Medicine | DX: R31.9 Hematuria, unspecified (principal) | CPT/HCPCS: 87086 ==

== ENCOUNTER 2023-07-27 13:19 | Day surgery (SDC) | payer MEDICARE, BC, SELFPAY ==
--- NOTE | 2023-07-27 10:08 | PDOC.DSDIS_ITS ---
Date of service: 07/27/23 Time of Service: 15:00 Discharge Plan Disposition Patient Disposition: Home Condition: Stable Discharge Details Attending Provider: Surya Sommers Primary Care Provider: Yvonne Amos Home Meds and New Rx's Prescriptions: Continued tadalafil [Cialis] 5 mg tablet 5 mg PO DAILY Qty: 90 3RF Hold Instructions: Home Medication placed on hold at Doctor's office Patient Comments: 02/16/17 2.5MG DAILY Ozempic 1 mg/dose (4 mg/3 mL) pen injector 1 mg subcut QWEEK losartan 25 MG tablet 25 mg PO HS simvastatin 20 MG tablet 20 mg PO DAILY omeprazole 20 mg capsule,delayed release(DR/EC) 20 mg PO DAILY multivitamin [Daily-Matias] 1 EACH tablet 1 ea PO DAILY Patient Comments: 10/27/16 temp on hold while pt on Cipro vitamin B complex 1 EACH capsule 1 ea PO DAILY Patient Comments: 10/27/16 temp on hold while pt on Cipro Fish Oil 500 MG capsule,delayed release(DR/EC) 1,500 mg PO DAILY acetaminophen 500 mg Tablet 1,000 mg PO TID Qty: 0 0RF metformin 500 mg tablet 500 mg PO BID Qty: 60 0RF Discharge Instructions Additional Instructions: Surgery: Left index finger trigger release Activity: Protect hand for a few weeks. Gently increase finger motion and hand gripping to prevent stiffness. Recommend elevation to minimize swelling and discomfort. Prescriptions: None Resume home medicines, use [id number] Tylenol (acetaminophen) as needed for mild pain and ibuprofen (Motrin) or naproxen (Aleve) as needed for moderate to severe pain and swelling. Dressings: Leave dressing in place for 3 days. May then remove and leave open to air or cover incision with Band-Aid. May get wet after 5 days. Follow-up: 10-[address] Sommers Please call the office during business hours with any questions or concerns. Stand Alone Forms: Anesthesia Discharge InstMadeleine Quinones (DSU) Referrals: Surya Sommers MD [ [facility] STAFF PHYSICIAN] - 08/08/23 8:45 am Discharge Orders Discharge Orders: Discharge Order (Routine); Ordered 07/27/23 Ordered By: Surya Sommers DS: Diagnosis Discharge Diagnosis (1) Trigger finger, left index finger: Status: Acute
--- NOTE | 2023-07-27 10:10 | W.PM.OP ---
Date of service: 07/27/23 Time of Service: 15:30 Operative Note Operative Note DATE OF PROCEDURE: 07/27/23 PRE-OP DIAGNOSIS: Left index finger trigger finger PROCEDURE: Left index finger trigger release, CPT# 84805 SURGEON: Surya Sommers MANAGER OF MEDICAL: None None ANESTHESIA TYPE: Local By Surgeon Refer to Anesthesia Record Patient was transported to: same day Patient's condition: stable Indications: Please see complete medical record for details. Procedure Description: In the operating room, the patient was positioned supine on the stretcher. All bony prominences were padded. Preoperative antibiotics were omitted. The correct patient, procedure, and side of the procedure were all verified prior to beginning. Local anesthesia was induced about the site with 10cc of 1% lidocaine containing epinephrine buffered with 1 cc of sodium bicarbonate. The Left hand was prepped and draped in the usual sterile fashion. Proper analgesia was confirmed. A small volar longitudinal approach was made overlying the index MCP joint. Soft tissues were swept to the sides and retracted to expose the A1 sera. The release was started centrally with a knife and completed at the proximal and distal margins with tenotomy scissors. Care was taken to protect the flexor tendons. The sera was significantly thickened, but the flexor tendons were intact. Appropriate flexor tendon excursion was confirmed. The patient readily demonstrated full range of motion of the finger without triggering. The small incision was irrigated and then dried. Hemostasis was appropriate. The incision was closed using 3-0 nylon in a horizontal mattress fashion. Xeroform was applied followed by gauze and the hand was gently compressed with an Caden bandage. The patient tolerated local anesthesia without complication and was transferred out of the operating room in a stable condition.
[2023-07-27 13:20] VITALS: BP 118/62; PULSE 70; RESP 16; TEMP 36.3; O2SAT 99
[2023-07-27] MEDS: Lidocaine 1% Multi-Dose W/EPI 1/100,000 50 ML VIAL (16:02)
[2023-07-27] MEDS: Sodium Bicarbonate 50 MEQ/50 ML VIAL (16:02)
[2023-07-27 16:30] VITALS: BP 122/63; PULSE 85; RESP 16; TEMP 36.5; O2SAT 100
== END 2023-07-27 17:09 | disposition home or self-care (01) ==
LOC: SUR 13:19
PROVIDERS: PCP Family Medicine; Visit Provider Student in an Organized Health Care Education/Training Program
PROC: (CPT 26055; principal; 2023-07-27 14:45)
DX: M65.322 Trigger finger, left index finger (principal)
CPT/HCPCS: 26055; J2004

== ENCOUNTER → 2023-08-08 08:30 | Outpatient (BNVA) | payer MEDICARE, BC, SELFPAY | PROVIDERS: PCP Family Medicine; Visit Provider Student in an Organized Health Care Education/Training Program | DX: Z47.89 Encounter for other orthopedic aftercare (principal); M65.322 Trigger finger, left index finger ==

== ENCOUNTER → 2023-09-20 01:41 | Outpatient (CLI) | payer MEDICARE, BC, SELFPAY ==
--- NOTE | 2023-09-20 07:00 | DI.US_ITS ---
Exam(s) US RENAL EXAM: US RENAL CLINICAL HISTORY: monitoring hydro, LT HYDRONEPHROSIS, N13.30 TECHNIQUE: Ultrasound of both kidneys performed using standard protocol. COMPARISON: US US RENAL from 02/22/2023 FINDINGS: KIDNEYS: Both kidneys exhibit normal size with right kidney measuring 11.6 cm length and left kidney 12.7 cm length. Right kidney appears unremarkable. There is severe hydronephrosis of the left kidne y noted with cortical thinning again evident. There are no solid masses in either kidney nor shadowi ng calculi in either kidney. URINARY BLADDER: Prevoid volume is 138 cc Postvoid volume is 60 cc There is a 1 cm hyperechoic focus with shadowing in the region of the left UVJ and prostate and the l eft ureterovesical jet is not identified (the right ureterovesical jet is normal.) The prostate gland is significantly enlarged and appears to contain calcification. IMPRESSION: 1. No significant ultrasound findings in the right kidney. 2. Severe hydronephrosis of the left kidney again noted which may or may not be related to a calculu s at the ureterovesical junction. Recommend CT scan to determine if there is truly a calculus at the left ureterovesical junction or if this prominent 1 cm calcification at this level is indeed related to the enlarged prostate gland which would imply that there may be another reason for the severe obs truction of the left collecting system. DATA REPOSITORY:
== END ==
PROVIDERS: PCP Family Medicine; Visit Provider Nurse Practitioner Gerontology
DX: N13.30 Unspecified hydronephrosis (principal)
CPT/HCPCS: 76770

== ENCOUNTER 2023-09-20 02:19 | Outpatient (CLI) | payer MEDICARE, BC, SELFPAY ==
[2023-09-20 08:29] LABS: BUN 20 mg/dL (7-18); CREATININE 1.1 mg/dL (0.70-1.30); Estimated GFR 72.22 (mL/min/1.73m2)
== END 2023-09-20 02:20 | disposition home or self-care (01) ==
LOC: LBO 02:19
PROVIDERS: PCP Family Medicine; Visit Provider Nurse Practitioner Gerontology
DX: N13.30 Unspecified hydronephrosis (principal)
CPT/HCPCS: 36415; 76770; 84520; 82565

== ENCOUNTER → 2023-10-04 13:41 | Outpatient (BNVA) | payer MEDICARE, BC, SELFPAY | PROVIDERS: PCP Family Medicine; Visit Provider Nurse Practitioner Gerontology | DX: N40.1 Benign prostatic hyperplasia with lower urinary tract symptoms (principal); N13.30 Unspecified hydronephrosis | CPT/HCPCS: 99213 ==

== ENCOUNTER → 2023-11-07 08:16 | Outpatient (BNVA) | payer MEDICARE, BC, SELFPAY | PROVIDERS: PCP Family Medicine; Visit Provider Student in an Organized Health Care Education/Training Program | DX: M65.322 Trigger finger, left index finger (principal) | CPT/HCPCS: 99213 ==

== ENCOUNTER 2024-03-27 02:31 | Outpatient (CLI) | payer MEDICARE, BC, SELFPAY ==
--- NOTE | 2024-03-27 06:45 | DI.US_ITS ---
Exam(s) US RENAL EXAM: US RENAL CLINICAL HISTORY: monitoring hydronephrosis,lt,luts,n13.30,r39.9. TECHNIQUE: Griffin scale, color and spectral Doppler were used. COMPARISON: CT CT CHEST/ABD/PEL W from 11/15/2020 US US RENAL from 09/20/2023 FINDINGS: Renal size in cm: Right: 11.4. Left: 13.1. Echogenicity: Normal. Hydronephrosis: There is again seen marked left hydronephrosis with significant left renal cortical a trophy. Cyst or mass: There is again seen a cyst in the right kidney. No follow-up is recommended. Nephrolithiasis: No. Other findings: None. Bladder:The urinary bladder appears mildly trabeculated. There is an echogenic focus seen within the urinary bladder suspicious for a bladder stone. This was present on the prior examination. Ureteral jets: Right: Visualized and unremarkable. Left: Not visualized on this examination. Prevoid vol:195 cc Postvoid vol:61 cc Prostate: 92 cc Renal color flow: Symmetric and within normal limits. IMPRESSION: 1. Stable marked left hydronephrosis and left renal cortical atrophy. 2. Prostatomegaly. Trabeculated pattern of the urinary bladder likely reflecting chronic bladder out let obstruction. There is a moderate size postvoid urinary bladder volume. 3. There is a calcification again seen at the base of the urinary bladder. This may represent a blad arnold stone or calcification associated with the prostate gland. This is unchanged. DATA REPOSITORY:
== END 2024-03-27 02:51 ==
LOC: DI 02:33
PROVIDERS: PCP Family Medicine; Visit Provider Nurse Practitioner Gerontology
DX: N13.30 Unspecified hydronephrosis (principal); R39.9 Unspecified symptoms and signs involving the genitourinary system
CPT/HCPCS: 76770

== ENCOUNTER 2024-03-27 04:16 | Outpatient (CLI) | payer MEDICARE, BC, SELFPAY ==
[2024-03-27 09:06] LABS: BUN 22 mg/dL (7-18); CREATININE 1.2 mg/dL (0.70-1.30); Estimated GFR 64.65 (mL/min/1.73m2)
== END 2024-03-27 04:17 | disposition home or self-care (01) ==
LOC: LBO 04:17
PROVIDERS: PCP Family Medicine; Visit Provider Nurse Practitioner Gerontology
DX: N13.30 Unspecified hydronephrosis (principal); R39.9 Unspecified symptoms and signs involving the genitourinary system
CPT/HCPCS: 36415; 76770; 84520; 82565

== ENCOUNTER → 2024-04-03 14:22 | Outpatient (BNVA) | payer MEDICARE, BC, SELFPAY | PROVIDERS: PCP Family Medicine; Visit Provider Nurse Practitioner Gerontology | DX: N21.0 Calculus in bladder (principal); N13.30 Unspecified hydronephrosis | CPT/HCPCS: 99214 ==

== ENCOUNTER 2024-06-20 21:56 | Outpatient (REF) | payer MEDICARE, BC, SELFPAY ==
[2024-06-20 21:56] LABS: COMMENT (LAB VIEW ONLY) 149.94 mg/dL; Microalb ug/mg Crea 6.9 ug/mg Cr
== END 2024-06-20 21:57 | disposition home or self-care (01) ==
LOC: NCHCN 21:56
PROVIDERS: PCP Family Medicine; Visit Provider Family Medicine
DX: E11.9 Type 2 diabetes mellitus without complications (principal)
CPT/HCPCS: 82043; 82570

== ENCOUNTER 2024-06-25 02:18 | Outpatient (CLI) | payer MEDICARE, BC, SELFPAY ==
[2024-06-25 12:26] LABS: ALT 27 U/L (16-63); AST 19 U/L (15-37); Albumin 4.1 g/dL (3.4-5.0); Alkaline Phosphatase 92 U/L (46-116); Anion Gap 9.4 mmol/L (3-11); BUN 21 mg/dL (7-18); Bilirubin, Total 0.4 mg/dL (0.2-1.0); CO2 31.6 mmol/L (21.0-32.0); CREATININE 1.2 mg/dL (0.70-1.30); Calcium 9.5 mg/dL (8.5-10.1); Calculated LDL 50 mg/dL (<100); Chloride 106 mmol/L (98-107); Cholesterol 133 mg/dL (<200); Estimated GFR 64.65 (mL/min/1.73m2); Glucose 103 mg/dL (74-106); HDL Cholesterol 41 mg/dL (>or=40); Sodium 147 mmol/L (136-145); Total Protein 7.9 g/dL (6.4-8.2); Triglyceride 214 mg/dL (<150)
== END 2024-06-25 02:19 | disposition home or self-care (01) ==
LOC: LBO 02:18
PROVIDERS: PCP Family Medicine; Visit Provider Family Medicine
DX: E78.5 Hyperlipidemia, unspecified (principal); I10 Essential (primary) hypertension
CPT/HCPCS: 36415; 80053; 80061

== ENCOUNTER 2024-07-03 01:43 | Outpatient (CLI) | payer MEDICARE, BC, SELFPAY ==
--- NOTE | 2024-07-03 | DI.US_ITS ---
Exam(s) US AAA SCREENING EXAM: US AAA SCREENING CLINICAL HISTORY: EX-SMOKER, Z87.891 COMPARISON: CT CT CHEST/ABD/PEL W from 11/15/2020 FINDINGS: There is no evidence of abdominal aortic aneurysm. Maximum diameter of the abdominal aorta is 2.8 cm proximally. There is mild arterial megaly of both common iliac arteries which both exhibit diameter s 1.4 cm., unchanged from CT scan of October 2020. IMPRESSION: No evidence of abdominal aortic aneurysm. Mild arteriomegaly of both common iliac arteries but unchanged from CT scan of October 2020. DATA REPOSITORY:
== END 2024-07-03 02:03 ==
LOC: DI 01:44
PROVIDERS: PCP Family Medicine; Visit Provider Family Medicine
DX: Z87.891 Personal history of nicotine dependence (principal); Z13.6 Encounter for screening for cardiovascular disorders
CPT/HCPCS: 76706

== ENCOUNTER → 2024-09-19 08:46 | Outpatient (BNVA) | payer MEDICARE, BC, SELFPAY | PROVIDERS: PCP Family Medicine; Referring Provider Family Medicine; Visit Provider Physical Therapy Assistant | DX: Z12.11 Encounter for screening for malignant neoplasm of colon (principal); Z86.0102 Personal history of hyperplastic colon polyps | CPT/HCPCS: S0285 ==

== ENCOUNTER 2024-09-26 01:18 | Outpatient (CLI) | payer MEDICARE, BC, SELFPAY ==
--- NOTE | 2024-09-26 06:15 | DI.US_ITS ---
Exam(s) US RENAL EXAM: US RENAL CLINICAL HISTORY: monitoring left hydronephrosis,lower urinary tract symptoms TECHNIQUE: Ultrasound of both kidneys performed using standard protocol. COMPARISON: US US RENAL from 03/27/2024 US US AAA SCREENING from 07/03/2024 FINDINGS: RIGHT KIDNEY: Measures 11.4 cm in length. There is a small cyst measuring 1.8 x 1.7 cm. No solid masses. Normal cortical thickness and corticomedullary differentiation .There may be a small nonobstructive 6 mm calculus in the right kidney. There is also a small 1 cm benign cyst. LEFT KIDNEY: Measures 13.2 cm in length. There is severe hydronephrosis of the left kidney again noted. Thinning of the cortical mantle is again evident. Normal cortical thickness and corticomedullary differentiaion. No solids masses. No intrarenal calculi nor hydonephrosis. URINARY BLADDER: Prevoid volume is 143 cc Postvoid volume is 51 cc There is a shadowing irregular calculus or partially calcified mass in the posterior aspect of the urinary bladder. This measures approximately 2.3 by 1.4 cm. This is adjacent to the right ureterovesical jet. Ureterovesical jets: As was previously the case the right jet is seen but the left jet is not visualized. This is commensurate with the left-sided hydronephrosis. PROSTATE: Enlarged. Measures 6.5 cm wide by 4.9 cm AP. IMPRESSION: 1. There is severe hydronephrosis of the left kidney again noted. There is also again noted nonvisualization of the left ureterovesical jet, this being commensurate with the left-sided hydronephrosis. The ureterovesical jet on the right side appears intact and there is no hydronephrosis on the right side. 2. There is a partially calcified mass or calculus in the urinary bladder which measures approximately 2.3 x 1.4 cm. This appears to be adjacent to the right ureterovesical jet. Appropriate neurology follow-up recommended. DATA REPOSITORY:
== END 2024-09-26 01:38 ==
LOC: DI 01:18
PROVIDERS: PCP Family Medicine; Visit Provider Nurse Practitioner Gerontology
DX: N20.0 Calculus of kidney (principal); R39.9 Unspecified symptoms and signs involving the genitourinary system
CPT/HCPCS: 36415; 76770; 84520; 82565

== ENCOUNTER 2024-09-26 02:05 | Outpatient (CLI) | payer MEDICARE, BC, SELFPAY ==
[2024-09-26 08:42] LABS: BUN 19 mg/dL (7-18); Estimated GFR 80.47 (mL/min/1.73m2)
== END 2024-09-26 02:06 | disposition home or self-care (01) ==
LOC: LBO 02:05
PROVIDERS: PCP Family Medicine; Visit Provider Nurse Practitioner Gerontology
DX: N13.30 Unspecified hydronephrosis (principal); R39.9 Unspecified symptoms and signs involving the genitourinary system
CPT/HCPCS: 36415; 84520; 82565

== ENCOUNTER 2024-10-07 07:30 | Day surgery (SDC) | payer MEDICARE, BC, SELFPAY ==
--- NOTE | 2024-10-06 18:21 | PDOC.DSDIS_ITS ---
Date of service: 10/07/24 Discharge Plan Disposition Patient Disposition: Home Condition: Good Discharge Details Reason For Visit: screening colonoscopy Attending Provider: Damian Rapp Primary Care Provider: Yvonne Amos Home Meds and New Rx's Prescriptions: Continued tadalafil [Cialis] 5 mg tablet 5 mg PO DAILY Qty: 90 3RF Patient Comments: 02/16/17 2.5MG DAILY Ozempic 1 mg/dose (4 mg/3 mL) pen injector 1 mg subcut QWEEK losartan 25 MG tablet 25 mg PO HS simvastatin 20 MG tablet 20 mg PO DAILY turmeric root extract 300 mg capsule 300 mg PO DAILY multivitamin [Daily-Matias] 1 EACH tablet 1 ea PO DAILY Patient Comments: 10/27/16 temp on hold while pt on Cipro vitamin B complex 1 EACH capsule 1 ea PO DAILY Patient Comments: 10/27/16 temp on hold while pt on Cipro Discontinued bisacodyl [Dulcolax (bisacodyl)] 5 mg tablet,delayed release (DR/EC) 5 mg PO ONCE Qty: 4 0RF Rx Instructions: Take per colonoscopy instructions provided by ordering providers office polyethylene glycol 3350 17 gram/dose powder 17 g PO ONCE Qty: 238 0RF Rx Instructions: Take per colonoscopy instructions provided by ordering providers office Discharge Instructions Additional Instructions: Martin, we were able to complete the colonoscopy today without any difficulty. Unfortunately, there is a mass growing in the first part of your large intestine, called the cecum. As we discussed, the appearance of this raises concern for colon cancer. I did several biopsies of this to see if that proves the diagnosis. However, regardless of what the biopsy results show, this will certainly need to be removed with an operation. In preparation, I have sent a little bit of blood work today, and have ordered a CAT scan of your chest abdomen and pelvis to see if there are any other abnormalities anywhere else. If you have not heard from the radiology department in the next 48 hours, please contact my office and we can help with those arrangements. Once I have the results of the biopsies, as well as the CT scan, we can talk in more detail about what to expect. I am sorry to share this news with you today, but hopefully we are ahead of things, and we can resolve what ever this is as soon as possible. If you need anything and have any questions in the next few days, please do not hesitate to call. 1. If tolerated, consume a soft, low fiber diet for 1-2 days. 2[address] Do not drive, drink alcohol, operate machinery, make critical decisions, or do activities that require coordination or balance for 24 hours. 3. Because air was put into your colon during the procedure, expelling air from your rectum (passing gas or farting) is normal. 4. You may not have a bowel movement for 1-3 days because of the colonoscopy prep. This is normal. 5. Go directly to the emergency room if you notice any of the following: Develop chills (warm to touch), or if you have a thermometer and your temperature is above 101 Difficulty breathing or difficultly swallowing Persistent vomiting Severe abdominal pain, other than gas cramps Severe chest pain Black, tarry stools Any bleeding ? exceeding one tablespoon 6. Call your physician if the site where your intravenous was started becomes red, swollen, painful, and warm to touch. 7. Your physician has reviewed your pre-procedure medications. Please continue to take those medications as previously ordered. You will be given specific information/education regarding any changes to your medications before leaving. Activity:: Activity as Tolerated Diet:: As Tolerated Discharge Orders Discharge Orders: Discharge Order (Routine); Ordered 10/06/24 Ordered By: Damian Rapp Other Ambulatory Orders: CT chest/abd/pel w (Routine) Timeframe: 10 Day Facility: [facility] - Location: DIAGNOSTIC IMAGING Ordered By: Damian Rapp DS: Diagnosis Discharge Diagnosis (1) Encounter for screening colonoscopy: Status: Acute Asessment and Plan: Follow-up on biopsy results
--- NOTE | 2024-10-06 18:22 | COLE_ITS ---
Date of service: 10/07/24 Time of Service: : Colonoscopy Report Date of procedure: 10/07/24 Pre-op diagnosis general: screening colonoscopy Post-op diagnosis procedure note: other (Cecal mass, colon polyps) Procedure: colonoscopy with biopsy and polypectomy Surgeon: Damian Rapp Anesthesia Type: General:No Airway Estimated blood loss (mL): 10 Pathology: other (Biopsies of cecal mass, ascending colon polyp, 0.25 cm flat polyps at 20 cm x 2 (single specimen)) Complications: None Disposition: same day Indications: Martin is a 73 year old man who needs his next screening colonoscopy Prep: Miralax/Dulcolax Procedure Start Time: 08:48 Procedure End Time: 09:08 Retraction Time: 12 Findings: Carpeting polypoid mass of the cecum and ascending colon, 0.5 cm flat ascending colon polyp, 0.25 cm flat polyps at 20 cm x 2 Procedure Description: After the induction of anesthesia, and with the patient in left lateral decubitus position, I began by performing an external anorectal exam.? Perineum and skin were normal, as was the anal verge.? There was no evidence of external hemorrhoids.? Next, I performed a digital rectal exam.? I did not appreciate any abnormal findings.? Next, I advanced a colonoscope into the rectal vault.? I performed retroflexion.? This appeared normal.? Using irrigation, I then advanced the colonoscope beyond the rectal folds and into the sigmoid colon before advancing towards the cecum.? The quality of the prep was excellent.? In the proximal ascending colon, extending down over the ileocecal valve into the cecum was a large carpeting polypoid mass. Tissue was friable. Clinical features are concerning for colon cancer. The lumen was well-preserved, and able to get around this into the base of the cecum. I am able to identify the appendiceal orifice. Several cold forceps biopsies of the mass were obtained in an effort to prove the diagnosis. Next, I began withdrawing the colonoscope using repeated irrigation as necessary for full evaluation of the colonic mucosa. A few centimeters away from this mass was flat polyp. This was about 0.5 cm in its largest dimension. Cold snare polypectomy was performed, and resection was complete. There was minimal bleeding. Around 20 cm from the anal verge were 2 polyps. These were each 0.25 cm and flat. These were removed with cold forcep polypectomy and sent as a single specimen. Once the scope was withdrawn to the level of the rectum, great care was taken to examine portions of the rectal folds.? Finally, the scope was withdrawn and the patient was brought to the same-day surgery recovery unit as the anesthetic wore off. ?The findings and instructions were shared with the patient prior to discharge. [place] Bowel Prep Guilford Bowel Prep Right Colon: 3 Left Colon: 3 Transverse Colon: 3 Total Score: 9
[2024-10-07 07:38] VITALS: BP 132/62; PULSE 61; RESP 16; TEMP 36.3; O2SAT 99
--- NOTE | 2024-10-07 08:20 | W.ANESPRE ---
General Info Date of Service Date Performed: 10/07/24 Height: 5 ft 11 in Weight: 117.027 kg Body Mass Index (BMI): 35.9 Surgical Procedure: Operation Date: 10/07/24 09:05 Proposed Procedure Side Surgeon p Colonoscopy Damian Rapp MD Actual Procedure Side Surgeon p Colonoscopy Not Applicable Damian Rapp MD Pre-Op Diagnosis Post-Op Diagnosis hx of polyps Meds Allergies and Home Medications Allergies Allergy/AdvReac Type Severity Reaction Status Date / Time silver (From Tegaderm AG Allergy Topical Verified 10/07/24 08:06 Mesh) Irritation Sulfa (Sulfonamide Allergy fever and Verified 10/07/24 08:06 Antibiotics) rash lisinopril AdvReac Mild COUGH Verified 10/07/24 08:06 Home Medication ?Medication ?Instructions ?Recorded multivitamin (Daily-Matias tablet) 1 ea PO DAILY 01/03/13 vitamin B complex 1 ea PO DAILY 01/03/13 losartan 25 mg tablet 25 mg PO HS 02/16/16 simvastatin 20 mg tablet 20 mg PO DAILY 02/17/16 tadalafil 5 mg tablet (Cialis) 5 mg PO DAILY #90 tab-caps 09/13/21 semaglutide 1 mg/dose (4 mg/3 mL) 1 mg subcut QWEEK 07/12/23 subcutaneous pen injector (Smartio) turmeric root extract 300 mg 300 mg PO DAILY 07/24/24 capsule Current Visit Medications: Current Medications Generic Name Dose Route Start Last Admin Trade Name Freq PRN Reason Stop Dose Admin Ringer's Solution 1,000 mls @ 80 mls/hr 10/07/24 06:00 IV 10/07/24 23:59 INFUSION SHAQUILLE IV Miscellaneous Supplies 1 each 10/07/24 06:00 Iv Access IV 10/07/24 23:59 DIRECTED SHAQUILLE Sodium Chloride 0 ml 10/07/24 06:00 Normal Saline Flush 10 Ml Syr IV 10/07/24 23:59 PRN PRN Sodium Chloride 0 ml 10/07/24 06:00 Normal Saline 10 Ml Vial IJ 10/07/24 23:59 DIRECTED PRN Sterile Water 0 ml 10/07/24 06:00 Water,Injection,Sterile 10 Ml Vial IJ 10/07/24 23:59 DIRECTED PRN PFSH Active Problems Active Problems: Problem Status Onset Code Encounter for screening colonoscopy Acute Z12.11 Trigger finger, left index finger Acute M65.322 Steroid-induced hyperglycemia Acute R73.9, T38.0X5A Obesity, morbid, BMI 40.0-49.9 Acute E66.01 GERD (gastroesophageal reflux disease) Chronic K21.9 Lumbar back pain with radiculopathy affecting left lower extremity Acute M54.16 Lumbar nerve root compression Acute M54.16 Herniation of left side of L4-L5 intervertebral disc Acute M51.26 Cholelithiasis Acute K80.20 Fatty liver Acute K76.0 Peripheral neuropathy Chronic G62.9 Non-insulin treated type 2 diabetes mellitus Chronic E11.9 Lumbar back pain Acute M54.50 Fall Acute W19.XXXA Contusion of chest Acute S20.219A Abdominal contusion Acute S30.1XXA Rotator cuff tear, right Acute M75.101 Primary osteoarthritis of right knee Acute M17.11 Impingement syndrome of right shoulder Acute M75.41 Tendonitis of long head of biceps brachii of right shoulder Acute M75.21 Gross hematuria Acute 12/25/15 R31.0 Hydronephrosis, left Chronic 04/01/16 N13.30 Left ureteral stone Acute 12/25/15 N20.1 Lower urinary tract symptoms (LUTS) Acute 01/19/16 R39.9 Left ureteral stone Acute N20.1 Medical History Medical History Comments:: Pt states left kidney function compromised; followed by urology Surgical History Surgical History H/O cystoscopy Amputation of one or more toes Colonoscopy - IV Sedation (12/19/14) FLAVIO ROBERTO Tobacco Smoking/Tobacco Use Status: Former Tobacco Use Passive smoking exposure: No Alcohol Alcohol Intake: current Alcohol intake frequency: a few times a week Alcohol type: beer Substance Use Substance use: Never Substance use type: does not use Vital Signs and Lab Results Vital Signs Most Recent Vital Signs in EMR: Most Recent Vital Signs Temp Pulse Resp BP Pulse Ox 36.3 C L 61 16 132/62 99 10/07/24 07:38 10/07/24 07:38 10/07/24 07:38 10/07/24 07:38 10/07/24 07:38 Point of Care Results Point of Care Results: Finger Stick Blood Glucose 122 10/07/24 07:55 Lab Results Complete Metabolic Panel: BUN, (7-18) 19 mg/dL H 09/26/24, 07:54 Creatinine, (0.70-1.30) 1.0 mg/dL 09/26/24, 07:54 Est GFR (CKD-EPI 2020), (mL/min/1.73m2) 80.47 09/26/24, 07:54 Imaging and Studies Imaging and Studies Study information below may be from another EMR and interpreted by another provider. Please see original notes in EMR for more complete details. EKG Summary: 07/11/23 Conclusion Sinus rhythm...normal P axis, V-rate 50- 99 Normal Electrocardiogram Anesthesia Assessment and Plan Anesthesia History Personal History: No History of Anesthesia Complications Family History: No Family History of Anesthesia Complications Exercise Tolerance Exercise Tolerance: Metabolic Equivalents>4 Pertinent Negatives Pertinent Negatives: No Symptoms of GERD, No Major Cardiovascular Symptoms or Complaints and No Major Pulmonary Symptoms or Complaints Cardiac & Pulmonary Exam Cardiac Exam: Normal S1/S2 Heart Sounds Pulmonary Exam: Clear Bilateral Breath Sounds Implantable Cardiac Device Does patient have a Pacemaker or an ICD?: No Airway Exam Known Difficult Airway: No Mallampati Class: 3 Mouth Opening: Normal (> 3cm) Thyromental Distance: Greater than 3 cm Neck Range of Motion: Full ROM Neck Circumference: Normal Teeth Condition: Normal Dentition (left lower temporary crown intact) ASA Classification ASA Score: ASA 2 Emergency Case?: No NPO Status NPO Status: NPO Clears >2 hours, Solids >8 hours Anesthesia Plan Resuscitation Status: Full Code Anesthesia Technique: General Anesthesia Airway Planned: Natural Airway Monitors Used: Standard Monitors
[2024-10-07 08:24] VITALS: BMI 35.9
[2024-10-07] MEDS: Lactated Ringers 1,000 ML 80 ML IV (08:25)
--- NOTE | 2024-10-07 08:57 | BOWEL_PTH ---
PATIENT: Martin Navas LOC: [facility] U#:[id number] AGE/SX: 73/M ROOM: RE10/07/[address]: Damian Rapp MD : 1950 BED: DIS: 10/07/2024 SPEC #: [id number] RECD: 10/07/24 12:49 STATUS: KARLA REQ #: [id number] SACHIN: 10/07/24 08:[address]: Damian Rapp DEPT: Surgical Specimen RECD BY: Cindy Brown ENTERED: 10/07/24 12:50 SP TYPE: Bowel OTHR DR: Yvonne Amos Tissues: 1 - BIOPSY BOWEL 2 - BIOPSY BOWEL 3 - BIOPSY BOWEL Procedures: GROSS AND MICRO LEVEL 4 Comments: [id number]
[2024-10-07 09:17] VITALS: BP 109/60; PULSE 73; RESP 17; O2SAT 94
--- NOTE | 2024-10-07 09:28 | W.ANESPOSTOP ---
Postoperative Evaluation Date, Time and Location Date Performed: 10/07/24 Time Performed: 09:28 Patient Location: Day Surgery Unit Vital Signs Most Recent Imported Vital Signs: Most Recent Vital Signs Temp Pulse Resp BP Pulse Ox 36.3 C L 73 17 109/60 94 10/07/24 07:38 10/07/24 09:17 10/07/24 09:17 10/07/24 09:17 10/07/24 09:17 Pain Score Most Recent Pain Score: Most Recent Pain Score Pain Level 0 10/07/24 07:38 Assessment Mental Status: Awake (Alert & Oriented to Patient Baseline) Airway and Respiratory Function: Patent airway with normal (patient baseline) respiratory exam Cardiovascular Function: Hemodynamically Stable Hydration Status: Adequately Hydrated Nausea & Vomiting: No Nausea or Vomiting Pain: Pt. Denies Any Pain Peripheral Nerve Block: Patient did not receive a nerve block
[2024-10-07 10:01] VITALS: BP 129/68; PULSE 63; RESP 20; TEMP 36.1; O2SAT 100
[2024-10-07 10:31] LABS: Anion Gap 8.6 mmol/L (3-11); BUN 18 mg/dL (7-18); CO2 28.4 mmol/L (21.0-32.0); Calcium 9.1 mg/dL (8.5-10.1); Chloride 103 mmol/L (98-107); Estimated GFR 71.77 (mL/min/1.73m2); Glucose 107 mg/dL (74-106); Potassium 4.4 mmol/L (3.5-5.1); Sodium 140 mmol/L (136-145)
[2024-10-07 10:35] LABS: ALT 26 U/L (16-63); AST 28 U/L (15-37); Albumin 3.8 g/dL (3.4-5.0); Alkaline Phosphatase 79 U/L (46-116); Bilirubin, Direct 0.2 mg/dL (0.0-0.2); Bilirubin, Total 0.8 mg/dL (0.2-1.0); Total Protein 7.2 g/dL (6.4-8.2)
[2024-10-07 18:14] LABS: CEA 0.8 ng/mL (See Note)
== END 2024-10-07 10:26 | disposition home or self-care (01) ==
LOC: SUR 07:30 → MS 11-12 18:06
PROVIDERS: PCP Family Medicine; Visit Provider Surgery
PROC: 0DJD8ZZ Inspection of Lower Intestinal Tract, Via Natural or Artificial Opening Endoscopic (ICD-10-PCS; CPT 45378; principal; 2024-10-07 09:00)
DX: Z12.11 Encounter for screening for malignant neoplasm of colon (principal); K63.9 Disease of intestine, unspecified; D12.2 Benign neoplasm of ascending colon
CPT/HCPCS: 45385; 45380; 36415; 80048; 80076; 88305; 82378; J2003; J2371; J2704

== ENCOUNTER 2024-10-11 00:26 | Outpatient (CLI) | payer MEDICARE, BC, SELFPAY ==
--- NOTE | 2024-10-11 07:39 | DI.CT_ITS ---
Exam(s) CT CHEST/ABD/PEL W EXAM: CT CHEST/ABD/PEL W CLINICAL HISTORY: Colon cancer,c18.9. TECHNIQUE: Imaging Protocol: Axial computed tomography images with coronal and sagittal reformatted images were created and reviewed. Computer aided detection (CAD) was utilized. CONTRAST MATERIAL: Intravenous: Omnipaque 350 Contrast volume:100 ml Oral: yes / no COMPARISON: CT CT CHEST/ABD/PEL W from 11/15/2020 US US RENAL from 09/26/2024 FINDINGS: CHEST: Pulmonary parenchyma: No consolidation. No dominant measurable mass. Tracheobronchial tree: No bronchiectasis. No mucous plugging.No bronchial wall thickening. Pleura: No effusion or pneumothorax. Mediastinum: Within normal limits. Pulmonary arteries: No visible emboli. Cardiovascular: The left ventricle and left atrium mildly dilated.. Coronary artery calcifications. No pericardial effusion. Thoracic aorta non-dilated. Bones: Flowing osteophytes consistent with DISH. No lytic or blastic lesions. No compression fractures. Soft tissues: Unremarkable. ABDOMEN and PELVIS: Liver: Normal density. No suspicious mass. Gallbladder and biliary tract: Question of tiny stones at the fundus. No wall thickening. No biliary dilatation. Pancreas: Normal density, no abnormal calcifications or inflammatory process. Spleen: Normal. Kidneys: Marked left renal parenchymal thinning with barely any residual parenchyma. Severe left hydronephrosis again noted. Small cysts noted at mid and lower pole of the right kidney. Right kidney shows normal size, contour and axis. No radiodense stones. No suspicious masses seen. Adrenal glands: No masses seen. Aorta: Abdominal portion non-dilated. Lymph nodes: Within normal limits. Soft tissues: Small fat containing the hernia. Bladder: 2 calcifications noted in the posterior bladder, 1 measuring 15 in the other 9 millimeters in diameter. The larger stone is irregular. No visible mass. Bowel: No obstruction or bowel wall thickening. Mild 4.4 x 2.7 by 4 centimeter area of soft tissue density in the cecum could represent a mass versus area of on opacified stool. There is no visible extension into the surrounding fat. There is minimal diverticulosis in the sigmoid. There is a normal quantity of stool. The appendix is normal. Peritoneal cavity: No ascites. No focal collection. No mesenteric inflammatory response. No free air. Bones: Unremarkable for age. Reproductive organs: The prostate is enlarged. IMPRESSION: No evidence of metastatic disease in the chest, abdomen or pelvis. Probable cecal mass. Severe left hydronephrosis with end-stage left renal atrophy. Bladder calculi. No evidence of bladder mass. RADIATION DOSE DELIVERED: 1,561.12mGy.cm Total DLP DATA REPOSITORY: All CT scans at this facility are submitted to the National Radiology Data Registry (NRDR) Dose Index Registry (DIR) with the [employer] (ACR). RADIATION OPTIMIZATION: All CT scans at this facility use at least one of these dose optimization techniques: automated exposure control; mA and/or kV adjustment per patient size (includes targeted exams where dose is matched to clinical indication); or iterative reconstruction.
[2024-10-11] MEDS: Barium Sulfate 2% W/V-Creamy Vanilla Smoothie 450 ML BTL PO ×2 (11:02→11:03)
[2024-10-11] MEDS: Omnipaque 350 MG/ML 100 ML BTL IJ (13:04)
[2024-10-11] MEDS: Normal Saline - Diluent 50 ML VIAL IJ (13:05)
== END 2024-10-11 00:46 ==
LOC: DI 00:26
PROVIDERS: PCP Family Medicine; Visit Provider Surgery
DX: C18.9 Malignant neoplasm of colon, unspecified (principal); N13.2 Hydronephrosis with renal and ureteral calculous obstruction
CPT/HCPCS: 74177; 71260; J3490

== ENCOUNTER → 2024-10-14 13:40 | Outpatient (BNVA) | payer MEDICARE, BC, SELFPAY | PROVIDERS: PCP Family Medicine; Visit Provider Nurse Practitioner Gerontology | DX: N13.30 Unspecified hydronephrosis (principal); N40.1 Benign prostatic hyperplasia with lower urinary tract symptoms; R39.9 Unspecified symptoms and signs involving the genitourinary system | CPT/HCPCS: 99214 ==

== ENCOUNTER → 2024-10-17 11:15 | Outpatient (BNVA) | payer MEDICARE, BC, SELFPAY | PROVIDERS: PCP Family Medicine; Referring Provider Family Medicine; Visit Provider Surgery | DX: Z48.815 Encounter for surgical aftercare following surgery on the digestive system (principal); D12.6 Benign neoplasm of colon, unspecified | CPT/HCPCS: 99214 ==

== ENCOUNTER 2024-11-11 04:46 | Outpatient (CLI) | payer MEDICARE, BC, SELFPAY | END 2024-11-11 04:47 | disposition home or self-care (01) | LOC: LBO 04:46 | PROVIDERS: PCP Family Medicine; Visit Provider Nurse Practitioner Gerontology | DX: D12.6 Benign neoplasm of colon, unspecified (principal) | CPT/HCPCS: 36415; 86850; 86900; 86901 ==

== ENCOUNTER 2024-11-12 16:58 | Inpatient (IN) | payer MEDICARE, BC, SELFPAY ==
--- NOTE | 2024-11-11 16:21 | W.PM.OP ---
Operative Note Operative Note PRE-OP DIAGNOSIS: Tubulovillous adenoma PROCEDURE: Laparoscopic right hemicolectomy SURGEON: Damian Rapp INFORMATION SERVICES MANAGER: Sherry Last ANESTHESIA TYPE: Local By Surgeon, General LMA/ETT and Other (Bilateral tap blocks) Refer to Anesthesia Record ESTIMATED BLOOD LOSS: 150 PATHOLOGY: other (Ascending colon) COMPLICATIONS: None Patient was transported to: PACU Patient's condition: stable Indications: Martin is a 74-year-old male who was found to have a large carpeting tubulovillous adenoma in the cecum during routine screening colonoscopy. He needs definitive resection. Procedure Description: I met with Martin in the preoperative area, and we reviewed the plan for surgery. Next, we moved back to the operating room. He was assisted onto the OR table. He was padded and supported appropriately. General endotracheal anesthesia was initiated. Ramos urinary catheter was inserted using standard aseptic technique. The left arm was then tucked at his side, again, with care to ensure that it was positioned appropriately. The anterior abdominal wall was then prepped and draped. I made a small incision above the umbilicus, dissected down to the fascia. Next, using a 5 mm optical viewing port, I establish pneumoperitoneum under direct vision. The camera was reintroduced, the underlying viscera was examined. There is no evidence of any traumatic injury. Next, 5 mm ports were placed in the suprapubic position, as well as the left lower quadrant. I then performed bilateral tap blocks using local anesthetic mixed with Exparel. Martin was then placed in some Trendelenburg positioning, with the left side down. There were some adhesions around the cecum to the anterior abdominal wall in the right lower quadrant sidewall. These did not appear particularly pathologic. Otherwise, everything looks normal and healthy. The greater omentum was retracted cephalad, and the small bowel was swept out of the right lower quadrant. I first turned my attention to the ascending colon mesentery. Although I planned to medial to lateral dissection, his visceral adipose tissue was quite thick, and traditional anatomic landmarks were quite difficult to decipher. Therefore, in an effort to maintain safety, I felt reflecting it lateral to medial, and caudad to cephalad was probably a safer approach. Using LigaSure, the adhesions in the right lower quadrant were divided and the cecum was totally mobilized. The terminal ileum was already quite mobile, and did not require any dissection at this point. I then continued the dissection up along the right anterior abdominal sidewall the ascending mesocolon from the retroperitoneum. Great care was taken to stay out of the retroperitoneum. The dissection was continued up along the hepatic flexure, and these attachments were divided with the LigaSure. Next, I brought the greater omentum back down over the small intestine. This was then divided with sequential fires of the LigaSure up to the mid transverse colon. The terminal ileum was then lifted up to the anterior abdominal wall, and a suitable target for division was identified. I created a small defect in the mesentery. The 5 mm supraumbilical port was then exchanged for a 12 mm port, and the terminal ileum was divided with a single fire of an Endo PASCUAL stapler. The mesentery of the terminal ileum was then divided with the LigaSure up to the ileocolic artery. This was skeletonized, then divided with the LigaSure. Clips were also applied to the stump of the vessel. Staying high on the mesentery in order to provide adequate lymph node sampling if it is the case that this turns out to be a cancer, the mesentery was then divided up to the right colic artery. This was also skeletonized and divided. Once all of this dissection was complete, with the ascending colon completely mobilized to the midline, the camera and supraumbilical port were removed. The midline was anesthetized, then opened for delivery of the specimen. I performed a small amount of dissection of the greater omentum off of the mid transverse colon over to the right side for a formal right hemicolectomy. I made a small defect in the transverse mesocolon, then divided the transverse colon with a PASCUAL stapler. The remaining portion of the mesentery was then divided with the LigaSure. This the specimen completely, which was passed off the field as the ascending colon. The surgical field was examined. It appeared hemostatic. The divided terminal ileum was identified, and brought up to the transverse colon. There was a suitable target for an anastomosis on the antimesenteric side of the transverse colon. A blev-dc-gryi antiperistaltic anastomosis appeared most favorable. Silk sutures were used to pexy the antimesenteric borders of the terminal ileum and the transverse colon. I then cut away the corners of the staple lines, and created an ileocolostomy with a single fire of a PASCUAL stapler. The anastomosis was widely patent and appeared hemostatic. The ileal colotomy was then closed in 2 layers with 3-0 PDS, and imbricating silk stitches. The anastomosis was then delivered back into the peritoneal cavity. The greater omentum was allowed to retract over top of this. Care was taken to ensure that the small bowel was appropriately oriented. I then closed the fascia with 2-0 PDS from the top and bottom, and sewed them in the middle. The 5 mm ports were removed. The skin and subcutaneous tissues were irrigated. All of the incisions looked hemostatic. Surgical stapler was used to reapproximate the skin. Band-Aids were placed over the 5 mm port sites, and the midline was dressed with ana negative pressure wound device. The Ramos catheter was removed, Martin was awoken from the anesthetic, extubated, transferred to the recovery unit Date of Procedure: 11/12/24
[2024-11-12] VITALS (22 sets, daily range): BP systolic 86–160; BP diastolic 32–139; PULSE 46–67; RESP 13–23; TEMP 35.5–36.6; O2SAT 88–100; BMI 34.8
--- NOTE | 2024-11-12 07:29 | W.ANESPRE ---
General Info Date of Service Date Performed: 11/12/24 Height: 5 ft 11 in Weight: 113.398 kg Body Mass Index (BMI): 34.8 Surgical Procedure: Operation Date: 11/12/24 10:50 Proposed Procedure Side Surgeon p Hemicolectomy Laparoscopic/Hand Assist Right Damian Rapp MD Meds Allergies and Home Medications Allergies Allergy/AdvReac Type Severity Reaction Status Date / Time silver (From Tegaderm AG Allergy Topical Verified 11/12/24 09:30 Mesh) Irritation Sulfa (Sulfonamide Allergy fever and Verified 11/12/24 09:30 Antibiotics) rash lisinopril AdvReac Mild COUGH Verified 11/12/24 09:30 Home Medication ?Medication ?Instructions ?Recorded multivitamin (Daily-Matias tablet) 1 ea PO DAILY 01/03/13 vitamin B complex 1 ea PO DAILY 01/03/13 losartan 25 mg tablet 25 mg PO HS 02/16/16 simvastatin 20 mg tablet 20 mg PO DAILY 02/17/16 tadalafil 5 mg tablet (Cialis) 5 mg PO DAILY #90 tab-caps 09/13/21 semaglutide 1 mg/dose (4 mg/3 mL) 1 mg subcut QWEEK 07/12/23 subcutaneous pen injector (Ozempic) turmeric root extract 300 mg 300 mg PO DAILY 07/24/24 capsule bisacodyl 5 mg tablet,delayed 5 mg PO ONCE colonscopy bowel prep 10/29/24 release (Dulcolax (bisacodyl)) #8 tabs metronidazole 500 mg tablet 500 mg PO .COMPLEX #8 tabs 10/29/24 neomycin 500 mg tablet 500 mg PO .COMPLEX #8 tabs 10/29/24 ondansetron HCl 8 mg tablet 8 mg PO Q12H #3 tabs 10/29/24 polyethylene glycol 3350 17 238 g PO ONCE colonoscopy prep 10/29/24 gram/dose oral powder #238 grams glipizide 5 mg tablet 5 mg PO DAILY Lower blood sugar 11/07/24 turmeric 100 mg-myron 150 1 cap PO DAILY 11/07/24 mg-olive 50 mg-oreg 150 mg-capryl capsule acetaminophen 500 mg capsule 1,000 mg PO Q8H 11/12/24 Current Visit Medications: Current Medications Generic Name Dose Route Start Last Admin Trade Name Freq PRN Reason Stop Dose Admin Acetaminophen 1,000 mg 11/12/24 06:00 Acetaminophen 500 Mg Tab PO 11/12/24 23:59 PREOP SHAQUILLE Celecoxib 200 mg 11/12/24 06:00 Celecoxib 200 Mg Cap PO 11/12/24 23:59 PREOP SHAQUILLE Gabapentin 300 mg 11/12/24 06:00 Gabapentin 300 Mg Cap PO 11/12/24 23:59 PREOP SHAQUILLE Heparin Sodium (Porcine) 5,000 units 11/12/24 06:00 Heparin 5,000 Units/Ml Vial SC 11/12/24 23:59 NURSING EDUCATION SPECIALIST [facility] Ringer's Solution 1,000 mls @ 80 mls/hr 11/12/24 06:00 IV 11/12/24 23:59 INFUSION [facility] Cefazolin Sodium/Dextrose 2 gm in 50 mls @ 100 mls/hr 11/12/24 06:00 Ancef Duplex IVPB 11/12/24 23:59 PREOP [facility] IV Miscellaneous Supplies 1 each 11/12/24 06:00 Iv Access IV 11/12/24 23:59 DIRECTED SHAQUILLE Sodium Chloride 0 ml 11/12/24 06:00 Normal Saline Flush 10 Ml Syr IV 11/12/24 23:59 PRN PRN Sodium Chloride 0 ml 11/12/24 06:00 Normal Saline 10 Ml Vial IJ 11/12/24 23:59 DIRECTED PRN Sterile Water 0 ml 11/12/24 06:00 Water,Injection,Sterile 10 Ml Vial IJ 11/12/24 23:59 DIRECTED PRN PFSH Active Problems Active Problems: Problem Status Onset Code Tubulovillous adenoma of colon Acute D12.6 Trigger finger, left index finger Acute M65.322 Steroid-induced hyperglycemia Acute R73.9, T38.0X5A Obesity, morbid, BMI 40.0-49.9 Acute E66.01 GERD (gastroesophageal reflux disease) Chronic K21.9 Lumbar back pain with radiculopathy affecting left lower extremity Acute M54.16 Lumbar nerve root compression Acute M54.16 Herniation of left side of L4-L5 intervertebral disc Acute M51.26 Cholelithiasis Acute K80.20 Fatty liver Acute K76.0 Peripheral neuropathy Chronic G62.9 Non-insulin treated type 2 diabetes mellitus Chronic E11.9 Lumbar back pain Acute M54.50 Fall Acute W19.XXXA Contusion of chest Acute S20.219A Abdominal contusion Acute S30.1XXA Rotator cuff tear, right Acute M75.101 Primary osteoarthritis of right knee Acute M17.11 Impingement syndrome of right shoulder Acute M75.41 Tendonitis of long head of biceps brachii of right shoulder Acute M75.21 Gross hematuria Acute 12/25/15 R31.0 Hydronephrosis, left Chronic 04/01/16 N13.30 Left ureteral stone Acute 12/25/15 N20.1 Lower urinary tract symptoms (LUTS) Acute 01/19/16 R39.9 Left ureteral stone Acute N20.1 Medical History Medical History Comments:: Pt states left kidney function compromised; followed by urology Surgical History Surgical History Hx of colonoscopy with polypectomy (~09/2024) biopsies taken H/O cystoscopy Amputation of one or more toes Colonoscopy - IV Sedation (12/19/14) FLAVIO ROBERTO Tobacco Smoking/Tobacco Use Status: Former Tobacco Use Passive smoking exposure: No Alcohol Alcohol Intake: current Alcohol intake frequency: a few times a week Alcohol type: beer Substance Use Substance use: Never Substance use type: does not use Vital Signs and Lab Results Lab Results Blood Type / Crossmatch: Antibody Screen NEGATIVE 11/11/24 Imaging and Studies Imaging and Studies Study information below may be from another EMR and interpreted by another provider. Please see original notes in EMR for more complete details. EKG Summary: 07/11/23 Conclusion Sinus rhythm...normal P axis, V-rate 50- 99 Normal Electrocardiogram Anesthesia Assessment and Plan Anesthesia History Personal History: No History of Anesthesia Complications Family History: No Family History of Anesthesia Complications Exercise Tolerance Exercise Tolerance: Metabolic Equivalents>4 Cardiac & Pulmonary Exam Cardiac Exam: Normal S1/S2 Heart Sounds Pulmonary Exam: Clear Bilateral Breath Sounds Implantable Cardiac Device Does patient have a Pacemaker or an ICD?: No Airway Exam Known Difficult Airway: No Mallampati Class: 3 Mouth Opening: Normal (> 3cm) Thyromental Distance: Greater than 3 cm Neck Range of Motion: Full ROM Neck Circumference: Normal Teeth Condition: Normal Dentition (left lower temporary crown intact) ASA Classification ASA Score: ASA 2 Emergency Case?: No NPO Status NPO Status: NPO Clears >2 hours, Solids >8 hours Anesthesia Plan Resuscitation Status: Full Code Anesthesia Technique: General Anesthesia Airway Planned: Endotracheal Tube Pain Management: Surgeon and patient request nerve block Monitors Used: Standard Monitors Preoperative Comments:: 74 yo male for lap hemicolectomy. Sig PMHx: HTN (losartan), GERD (not on meds. barium study with severe reflux noted), LBP (back feels decent today), neuropathy, DM (glipizide, ozempic). Former smoker, occ EtOH. Previous Anes: - colo, prop, natural airway, no issues. - cysto x 2, LMA 5, no issues.
[2024-11-12] MEDS: Lactated Ringers 1,000 ML 80 ML IV (10:30)
[2024-11-12] MEDS: Gabapentin 300 MG CAP PO (11:26)
[2024-11-12] MEDS: Celecoxib 200 MG CAP PO (11:26)
[2024-11-12] MEDS: ceFAZolin 2 GM/50 ML BAG IVPB (13:35)
[2024-11-12] MEDS: Bupivacaine LIPOSOME/PF 133 MG/10 ML VIAL IJ (14:04)
[2024-11-12] MEDS: Bupivacaine 0.25% Pres-Free W/EPI 30 ML VIAL (14:04)
--- NOTE | 2024-11-12 15:50 | BOWEL_PTH ---
PATIENT: Martin Navas LOC: U#:[id number] AGE/SX: 74/M ROOM: 205 RE11/12/[address]: Damian Rapp MD : [id number] BED: A DIS: 11/22/2024 SPEC #: [id number] RECD: 11/12/24 18:24 STATUS: KARLA REQ #: [id number] SACHIN: 11/12/24 15:[address]: Damian Rapp DEPT: Surgical Specimen RECD BY: Cindy Brown ENTERED: 11/12/24 18:25 SP TYPE: Bowel OTHR DR: Yvonne Amos Tissues: 1 - BOWEL RESECTION(OTHER) Procedures: IMMUNOPEROXIDASE STAIN GROSS AND MICRO LEVEL 6 Comments: [id number]
[2024-11-12] MEDS: fentaNYL 100 MCG/2 ML VIAL IVP (17:09)
[2024-11-12] MEDS: Normal Saline Flush 10 ML SYR IV (17:10)
--- NOTE | 2024-11-12 17:40 | W.ANESPOSTOP ---
Postoperative Evaluation Date, Time and Location Date Performed: 11/12/24 Time Performed: 17:40 Patient Location: PACU Vital Signs Most Recent Imported Vital Signs: Most Recent Vital Signs Temp Pulse Resp BP Pulse Ox 36.3 C L 48 L 15 91/32 L 98 11/12/24 17:30 11/12/24 17:31 11/12/24 17:31 11/12/24 17:31 11/12/24 17:31 Pain Score Most Recent Pain Score: Most Recent Pain Score Pain Level 5 11/12/24 17:30 Assessment Mental Status: Awake (Alert & Oriented to Patient Baseline) Airway and Respiratory Function: Patent airway with normal (patient baseline) respiratory exam Cardiovascular Function: Hemodynamically Stable Hydration Status: Adequately Hydrated Nausea & Vomiting: No Nausea or Vomiting Pain: Pain is tolerable per patient Peripheral Nerve Block: Patient did not receive a nerve block Postoperative Comments:: Conversive, smiling and doing well. States discomfort is tolerable.
--- NOTE | 2024-11-12 18:37 | W.PC.ACHO ---
Registration Status: ADM IN Primary Language: Preferred Language: Georgian (Updated 10/09/24 @ 07:33 by Marti Mack) Hx of colonoscopy with polypectomy (~09/2024) H/O cystoscopy Amputation of one or more toes Colonoscopy - IV Sedation (12/19/14) Most Recent Vital Signs Temperature 35.5 C L 11/12/24 18:26 Temperature Source Temporal Artery Scan 11/12/24 18:26 Pulse 52 L 11/12/24 18:26 Pulse Rhythm Regular 11/12/24 09:38 Pulse 48 L 11/12/24 17:31 Respiratory Rate 16 11/12/24 18:26 Respiratory Depth Normal 11/12/24 09:38 Blood Pressure 103/52 L 11/12/24 18:26 Blood Pressure Mean 69 11/12/24 18:26 Pulse Oximetry 98 11/12/24 18:26 Respiratory End-tidal CO2 29 11/12/24 17:31 Oxygen Delivery Method Room Air 11/12/24 18:26 Oxygen Flow Rate 0 11/12/24 18:26 Pain Level 5 11/12/24 17:30 Comment rn aware 11/12/24 18:26 Allergies silver (From Tegaderm AG Mesh) Allergy (Verified 11/12/24 09:30) Topical Irritation Sulfa (Sulfonamide Antibiotics) Allergy (Verified 11/12/24 09:30) fever and rash lisinopril Adverse Reaction (Mild, Verified 11/12/24 09:30) COUGH Active Medications Generic Name Dose Route Start Last Admin Trade Name Freq PRN Reason Stop Dose Admin Celecoxib 200 mg 11/12/24 06:00 11/12/24 11:26 Celecoxib 200 Mg Cap PO 11/12/24 23:59 200 mg PREOP SHAQUILLE Administration Fentanyl 0 mcg 11/12/24 13:48 11/12/24 17:09 Fentanyl 100 Mcg/2 Ml Vial IVP 25 mcg DIRECTED PRN Administration Gabapentin 300 mg 11/12/24 06:00 11/12/24 11:26 Gabapentin 300 Mg Cap PO 11/12/24 23:59 300 mg PREOP SHAQUILLE Administration Ringer's Solution 1,000 mls @ 80 mls/hr 11/12/24 06:00 11/12/24 17:28 IV 11/12/24 23:59 80 mls/hr INFUSION SHAQUILLE Infusion Cefazolin Sodium/Dextrose 2 gm in 50 mls @ 100 mls/hr 11/12/24 06:00 11/12/24 14:05 Ancef Duplex IVPB 11/12/24 23:59 Infused PREOP SHAQUILLE Infusion Sodium Chloride 0 ml 11/12/24 06:00 11/12/24 17:10 Normal Saline Flush 10 Ml Syr IV 11/12/24 23:59 10 ml PRN PRN Administration IV IV Catheter Type [Right Peripheral IV Forearm] IV Catheter Type [Left Wrist] Peripheral IV IV Catheter Gauge [Right 18 Forearm] IV Catheter Gauge [Left Wrist] 20 [id number] Documentation Fingerstick Glucose Start: 11/12/24 09:54 Freq: Status: Active Protocol: Activity Type Activity Date Activity User E-sign Co-sign Detail Recorded Client Recorded Date Recorded By Document 11/12/24 16:53 BKG DAEMON(5) [id number] 11/12/24 16:55 BKG DAEMON(6) Intake and Output - 24 Hour Total 10/30/24 07:30 thru 11/12/24 17:30 Intake Total 900 Output Total 350 Balance 550 Weight 116 kg Intake: IV 900 Output: Urine 200 Estimated Blood Loss 150 Other: Urine Color Yellow Urine Appearance Clear Emesis Description None Urinary Catheter Urinary Catheter Date of 11/12/24 Insertion [Urethral (Ramos)] Time of insertion [Urethral ( 13:30 Ramos)] v v v v v v v v v Sending and/or Receiving Nurses: Please use comment section below to note any information pertinent to the patient hand-off not included above. Information / Comments: Report received from: PETRONA @1800
[2024-11-12] MEDS: Enoxaparin 40 MG/0.4 ML SYR SC (20:33)
[2024-11-12] MEDS: Ketorolac 15 MG/ML VIAL IVP (20:34)
[2024-11-12] MEDS: Normal Saline Flush 10 ML SYR IVP (20:41)
[2024-11-12] MEDS: Insulin Aspart 300 UNITS/3 ML PEN SC (21:22)
[2024-11-12] MEDS: ACETAMINOPHEN 1,000 MG/100 ML BAG 400 MG IVPB (21:24)
[2024-11-13] MEDS: HYDROmorphone 2 MG/ML SYR 1 MG IVP (02:35)
[2024-11-13] MEDS: Ondansetron 4 MG/2 ML VIAL IVP (02:44)
[2024-11-13] MEDS: ACETAMINOPHEN 1,000 MG/100 ML BAG 400 MG IVPB ×3 (05:31→22:28)
[2024-11-13 07:58] LABS: Abs Immature Grans 0.05 10^3/uL (0.0-0.06); HCT 40.0 % (40.0-50.0); HGB 13.2 g/dL (13.5-17.5); Immature Grans % 0.4 %; MCH 27.4 pg (27.0-33.0); MCHC 33.0 % (32.0-36.0); MCV 83 fL (80-95); MPV 10.8 fL (8.0-11.0); Platelet Count 188 10^3/uL (130-400); RBC 4.81 10^6/uL (4.36-5.78); RDW 12.7 % (11.8-14.1); RDW-SD 38.5 fL; WBC 13.99 10^3/uL (4.4-10.8)
[2024-11-13 08:09] LABS: Anion Gap 9.5 mmol/L (3-11); BUN 30 mg/dL (7-18); CO2 25.5 mmol/L (21.0-32.0); Calcium 8.8 mg/dL (8.5-10.1); Chloride 104 mmol/L (98-107); Estimated GFR 53.40 (mL/min/1.73m2); Glucose 210 mg/dL (74-106); Potassium 4.6 mmol/L (3.5-5.1); Sodium 139 mmol/L (136-145)
[2024-11-13 08:10] VITALS: BP 115/54; PULSE 72; RESP 16; TEMP 36; O2SAT 98
[2024-11-13] MEDS: glipiZIDE 5 MG TAB PO (08:18)
[2024-11-13] MEDS: Normal Saline Flush 10 ML SYR IVP ×2 (08:19→20:00)
[2024-11-13] MEDS: Multivitamin TAB 1 TAB PO (08:19)
[2024-11-13] MEDS: Insulin Aspart 300 UNITS/3 ML PEN SC (08:20)
[2024-11-13] MEDS: Ketorolac 15 MG/ML VIAL IVP ×2 (08:35→17:35)
--- NOTE | 2024-11-13 08:44 | PDOC.CMIN ---
Date of service: 11/13/24 Time of Service: 08:44 Care Management Initial Assmt Initial Assessment Reason for Hospitalization: Tubulovillous adenoma of colon Functional Status/Living Situation Patient Presentation: Martin was sitting in a chair when CM met with him, he is accompanied by his significant other, Bassam. He is POD #1 Laparoscopic right hemicolectomy and currently admitted for pain control, while he gradually advances his mobility, diet and transitions to PO medications. 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 He has a sister whom lives in [facility], but no other family or children of his own. At discharge, Miki primary concern is navigating the stairs at home. He has neuropathy at baseline and a history of 5 toe amputations. His home set up includes three steps and a ramp leading to the front door entrance, and 12 steps to access his bedroom. A PT consult may be beneficial prior to discharge to assess mobility and ensure he able to safely navigate stairs. 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[place]) Instrumental Activities of Daily Living (ADLs): Independent Medications Medication Management: No Issues/Barriers identified Physical Functioning/Mobility Assistive Device: Ramp Advance Directives Advance Directives: Do you have an Advance Directive: Y 08/15/23, 10:00 AD On File at [facility]: Y 08/15/23, 10:00 Date Asked 11/13/24 Today, 11:29 AD Date Reviewed 11/03/24 11/03/24, 21:20 COLST On File at [facility] COLST Date Scanned Code Status Resuscitation Status Full Code Insurance Coverage/Financial Issues Insurance: Medicare Part A & B - [id number] /[facility] - [id number] Financial Issues: None identified Care Team Visit Care Team Role Provider Type Yvonne Amos Primary Care Provider NON-[facility] STAFF PHYSICIAN Damian Rapp MD Admit Provider [facility] STAFF PHYSICIAN Attending Provider Discharge Potential Discharge Needs: PCP F/U Appt and Surgical F/U Appt Anticipated Barriers to Discharge: None Identified Patient/Family Education Needs: Review discharge instructions, discuss Ask Me Three Transportation: Private vehicle Plan: PT Consult requested. Anticipate Martin will discharge home via private vehicle with family once medically cleared. Patient will follow up with community providers and continue per the discharge plan of care when established. CM will continue to follow and assess for discharge needs. Social Determinants of Health Screening Will the Patient Participate in the Screening?: Declined to provide PFSH All Active Problems Tubulovillous adenoma of colon (Acute) Trigger finger, left index finger (Acute) s/p left index finger trigger release Steroid-induced hyperglycemia (Acute) Obesity, morbid, BMI 40.0-49.9 (Acute) GERD (gastroesophageal reflux disease) (Chronic) Lumbar back pain with radiculopathy affecting left lower extremity (Acute) Lumbar nerve root compression (Acute) Herniation of left side of L4-L5 intervertebral disc (Acute) Cholelithiasis (Acute) Fatty liver (Acute) Peripheral neuropathy (Chronic) Non-insulin treated type 2 diabetes mellitus (Chronic) Lumbar back pain (Acute) Fall (Acute) Contusion of chest (Acute) Abdominal contusion (Acute) Rotator cuff tear, right (Acute) Primary osteoarthritis of right knee (Acute) Impingement syndrome of right shoulder (Acute) Tendonitis of long head of biceps brachii of right shoulder (Acute) Gross hematuria (Acute 12/25/15) Hydronephrosis, left (Chronic 04/01/16) Left ureteral stone (Acute 12/25/15) Lower urinary tract symptoms (LUTS) (Acute 01/19/16) Left ureteral stone (Acute) Surgical History Hx of colonoscopy with polypectomy (~09/2024) biopsies taken H/O cystoscopy Amputation of one or more toes Colonoscopy - IV Sedation (12/19/14) FLAVIO ROBERTO Family History (Updated 05/31/22 @ 19:17 by Ny Rodriguez MD) Maternal Grandfather Heart disease Mother Diabetes Maternal Aunt Diabetes Sister Cancer pancreatic cancer - smoker Social History (Updated 09/24/24 @ 07:48 by VENITA George) Smoking/Tobacco Use Status: Former Tobacco Use Quit Date: 03/20/79 Smoking risk assessment performed?: Yes Alcohol Intake: current Alcohol Intake frequency: a few times a week Alcohol type: beer Drug use: Never Substance use type: does not use Housing: house Current gender identity: male Do you feel safe at home: Yes Do you feel safe in your relationship?: Yes
--- NOTE | 2024-11-13 08:53 | PGE_ITS ---
Date of Service Date of service: 11/13/24 Time of Service: 08:53 Assessment and Plan Assessment and plan (1) Tubulovillous adenoma of colon: Status: Acute Assessment and plan: POD #1 s/p laparoscopic hand assisted right hemicolectomy Regular diet Encouraged activity OOB, sitting in the chair, ambulation. Discussed optimizing pain control staying on top of taking his scheduled tylenol and toradol. He has TAP blocks, however this will most likely wear off by day 2- 3. All questions were answered to patient's satisfaction. P// Ensure pain control, slowly increase PO intake, transition to PO medications and increase activity tolerance. POD 1 s/p lap hand assisted R hemicolectomy for tubulovillous adenoma. Progressing well. Pain control this afternoon is decent, but as he becomes more active his needs may change. He has taken hydrocodone in the past and has had good control of acute pain that way. I would hold the IV tylenol and make prn norco available, 1-2 tablets depending on pain scores, every 6 hours. lovenox ordered for dvt ppx. Continue SCDs. PT consult, walking aid needed Awake, NAD eomi, MMM normal resp effort abd soft, round, SARA-7 dressing intact Subjective Subjective Interval history since last seen: Martin reports he is feeling well this morning. He expresses that he had a liquid BM last night. He has been independent with transfers. Exam Const General: cooperative, healthy appearing and comfortable Orientation: alert and oriented x3 Resp Effort & Inspection: normal respiratory effort, no audible wheezes and no cough GI Inspection: normal to inspection Palpation: soft, no guarding and tender Other: SARA dressing is in place. Objective Last Vital Signs Temp 36.0 C L 11/13/24 08:10 Pulse 72 11/13/24 08:10 Resp 16 11/13/24 08:10 BP 115/54 L 11/13/24 08:10 Pulse Ox 98 11/13/24 08:10 Laboratory Results - last 24 hr 11/13/24 07:45 WBC 13.99 H RBC 4.81 Hgb 13.2 L Hct 40.0 MCV 83 MCH 27.4 MCHC 33.0 RDW 12.7 Plt Count 188 MPV 10.8 Immature Gran % 0.4 Neutrophils % 89.7 Lymphocytes % 3.3 Monocytes % 6.5 Eosinophils % 0.0 Basophils % 0.1 Nucleated RBC % 0.0 Absolute Neutrophils 12.55 H Absolute Lymphocytes 0.46 L Absolute Monocytes 0.91 H Absolute Eosinophils 0.00 Absolute Basophils 0.01 Sodium 139 Potassium 4.6 Chloride 104 Carbon Dioxide 25.5 Anion Gap 9.5 BUN 30 H Creatinine 1.4 H Est GFR (CKD-EPI 2020) 53.40 Glucose 210 H Calcium 8.8 Time Spent with Patient Time Spent with Patient: 25-34 minutes Time was spent: preparing to see the patient(eg.review tests), ordering medications,tests, procedures and counseling the patient
--- NOTE | 2024-11-13 12:56 | PHA.REVIEW2 ---
Pharmacy Admission Review Admission Clinical Review Admission Pharmacy Review: Tubulovillous adenoma of colon (Acute) silver (From Tegaderm AG Mesh) Allergy (Verified 11/12/24 09:30) Topical Irritation Sulfa (Sulfonamide Antibiotics) Allergy (Verified 11/12/24 09:30) fever and rash lisinopril Adverse Reaction (Mild, Verified 11/12/24 09:30) COUGH Resuscitation Status Full Code Height 5 ft 11 in Weight 116 kg Comments Comments/Follow Ups: POD#1 Laparoscopic right hemicolectomy Pharmacy Admission Review Renal Dosing Renal Dosing: BUN 30 mg/dL (7-18) H 11/13/24 07:45 Creatinine 1.4 mg/dL (0.70-1.30) H 11/13/24 07:45 Medications needing adjustments: Reviewed (CrCl 61.7 mL/min) List of meds needing interventions: Current medications are okay Anticoagulation Anticoagulation: Hgb 13.2 g/dL (13.5-17.5) L 11/13/24 07:45 Hct 40.0 % (40.0-50.0) 11/13/24 07:45 Plt Count 188 10^3/uL (130-400) 11/13/24 07:45 Creatinine 1.4 mg/dL (0.70-1.30) H 11/13/24 07:45 DVT Prophylaxis: Reviewed Medications: Enoxaparin (40mg daily) Opiate Usage Evaluate Pain Scale/Pains Meds: Reviewed (hydromorphone 1mg IVP q4h PRN - 1mg/24hrs) Scheduled Bowel Reg ordered if on Opiates?: No Relevant Labs Relevant Labs: Sodium 139 mmol/L (136-145) 11/13/24 07:45 Potassium 4.6 mmol/L (3.5-5.1) 11/13/24 07:45 Chloride 104 mmol/L (98-107) 11/13/24 07:45 Electrolytes, C-Reactive P, ESR: Reviewed (WBC 13.99) DM Control DM Control: Glucose 210 mg/dL (74-106) H 11/13/24 07:45 Finger Stick Blood Glucose 125 1249 Finger Stick Blood Glucose 125 1249 Finger Stick Blood Glucose 193 0709 Finger Stick Blood Glucose 193 0709 DM Control: Reviewed Insulin Dosing, Diabetic Medication: Has order for SS insulin and glipizide 5mg daily Cardiac Review BP, HR, EF%: Reviewed (BP 115/54 and HR WNL) QTc Review QTc: Reviewed (492 from 07/11/23 - most recent EKG on file) IV to PO Switch IV Medications: Reviewed (acetaminophen, hydromorphone, ketorolac and ondansetron) Home Meds Home Med List reviewed: Reviewed Relevent Home Meds Not ordered & why?: bisacodyl (colonoscopy prep), losartan, metronidazole (colonoscopy prep), neomycin (colonoscopy prep), Miralax (colonoscopy prep), Ozempic (has order for SS insulin), tadalafil, tumeric and vitamin B complex Current Meds Current Medication Order Review: Reviewed Comments Comments/Follow Ups: POD#1 Laparoscopic right hemicolectomy
--- NOTE | 2024-11-13 13:48 | CHAPLAIN ---
I know Martin and his SO, Bassam, from outside the hospital. Martin told me about his laproscopic surgery to remove a mass from his colon that happened yesterday. He said tests have indicated there isn't cancer in other parts of his colon and the biopsy on mass did not reveal cancer, but it was recommended that he have the mass removed. He said he's feeling fairly good today and having a bowel movement assured him that things are working. 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 He thinks he'll be here two more days. I explained my role and offered support.
[2024-11-13 18:29] VITALS: BP 116/58; PULSE 58; RESP 16; TEMP 36.1; O2SAT 96
--- NOTE | 2024-11-13 18:29 | NUR.NOTE ---
Nursing Note: A small diabetic wound was discovered under the pt's right foot (near the amputated big toe). The site was cleaned with a protective wipe and a foam border dressing was placed over the wound. A consult to wound nurse was placed to follow up on this.
[2024-11-13 19:52] VITALS: BP 117/55; PULSE 67; RESP 17; TEMP 36.5; O2SAT 96
[2024-11-13] MEDS: Enoxaparin 40 MG/0.4 ML SYR SC (20:00)
[2024-11-13] MEDS: Simvastatin 20 MG TAB PO (20:01)
[2024-11-14] MEDS: Ketorolac 15 MG/ML VIAL IVP ×2 (02:29→20:46)
[2024-11-14] MEDS: Ondansetron 4 MG/2 ML VIAL IVP ×2 (02:35→09:52)
[2024-11-14] MEDS: ACETAMINOPHEN 1,000 MG/100 ML BAG 400 MG IVPB ×3 (05:30→21:56)
[2024-11-14 06:57] VITALS: BP 121/58; PULSE 97; RESP 17; TEMP 36.4; O2SAT 98
[2024-11-14] MEDS: Insulin Aspart 300 UNITS/3 ML PEN SC ×3 (08:05→17:06)
[2024-11-14] MEDS: Multivitamin TAB 1 TAB PO (08:05)
[2024-11-14] MEDS: glipiZIDE 5 MG TAB PO (08:05)
[2024-11-14] MEDS: Normal Saline Flush 10 ML SYR IVP (08:06)
[2024-11-14 08:13] LABS: HCT 40.5 % (40.0-50.0); HGB 13.5 g/dL (13.5-17.5); MCH 27.7 pg (27.0-33.0); MCHC 33.3 % (32.0-36.0); MCV 83 fL (80-95); MPV 11.4 fL (8.0-11.0); Platelet Count 211 10^3/uL (130-400); RBC 4.87 10^6/uL (4.36-5.78); RDW 13.2 % (11.8-14.1); RDW-SD 39.8 fL; WBC 18.66 10^3/uL (4.4-10.8)
[2024-11-14 08:31] LABS: Anion Gap 10.2 mmol/L (3-11); BUN 71 mg/dL (7-18); CO2 24.8 mmol/L (21.0-32.0); Calcium 9.8 mg/dL (8.5-10.1); Chloride 102 mmol/L (98-107); Estimated GFR 32.83 (mL/min/1.73m2); Glucose 297 mg/dL (74-106); Potassium 4.3 mmol/L (3.5-5.1); Sodium 137 mmol/L (136-145)
[2024-11-14 08:32] LABS: C-Reactive Protein > 25.00 mg/dL (<or=0.5)
--- NOTE | 2024-11-14 09:18 | W.WOUNDCONS ---
Date of service: 11/14/24 Time of Service: 09:00 Wound Initial Evaluation Narrative Narrative: Martin Navas is a 74 year old man who was admitted following a hemicolectomy on 11/11/24. He has a health hx significant for T2DM, obesity, neuropathy of BLE, toe amputation x's 5, tubulovillous adenoma, fatty liver. He is alert and orientated x's 4 who is on a clear liquid diet. Of note pt's BMI is 35.7. Wound Right Upper Dorsal Foot: Wound Type: Diabetic Ulcer Wound General Appearance: Open to air, Clean/Dry and Unapproximated Wound Bed Greatest Portion: Red (Granulation) Wound Bed Lesser Portion: Red (Granulation) Wound Surrounding Tissue Appearance: Normal/Healthy Percent of Wound Bed Granulated/Red: 100 Wound Length: 0.2 in Wound Width: 0.12 in Wound Depth: 0.04 in Wound Drainage Amount: None Wound Drainage Odor: None/Absent Wound Topical Solution/Irrigant: Other (medihoney alginate) Wound Debridement Amount of Tissue Removed: None Circulation, Sensation, Motion Peripheral Pulse Strength: Weak Capillary Refill: Greater than 3 seconds Sensation Description: Numbness (diabetic neuropathy ), Tingling, [place] and Coldness Skin Temperature: Cold Skin Color: Pale KEESHA Blood Pressure: 121/58 Heart Rate: 97 Pain Pain Level: 5 Pain Scale Used: Adult Pain Duration/Frequency: With Movement Additional Other Comments: S/P abd surgery on 11/11/24 Photo Photo: Treatment/Dressing Change Topicals/Ointments: Medihoney Cleanse With: Cleanser with Surfactant Dressing Types: Mepilex w/Border (3x3 lite) Dressing Comment: mepilex is secured by sharlene gauze Nutrition Education Reviewed Nutrition Education: Yes Note: Pt educated about increasing protein intake. He states that he has eggs in the morning. He was encouraged to add more lean protein into his diet including chicken breast, white fish, eggs, ect.... Pt stated that he understands and will try to increases his protein intake Recomendation Recomendation:: Reynaldo laughlin diabetic ulcer Remove old dressing Cleanse wound w/ wound cleanser Pat dry with gauze Apply medihoney alginate to wound bed Cover w/ 3x3 border foam dressing Secure this with sharlene gauze and tape Change every other day and PRN if soiled. Physcian/Nurse Practioner Notified: Yes
[2024-11-14 09:32] VITALS: BP 121/58; PULSE 97
[2024-11-14] MEDS: Lactated Ringers 1,000 ML 75 ML IV ×2 (09:52→16:00)
--- NOTE | 2024-11-14 10:39 | IN_ITS ---
PT Notes Visit Reasons: Tubulovillous adenoma Inpatient Physical Therapy Evaluation Date: 11/14/2024 Referring Doctor: Dr Paez PT Orders: PT CONSULT: limited Ability Precautions: Standard, s/p abdominal surgery , IV access, Patient Profile/Admitting Diagnosis: Pt is a 74 yo male who presets POD#2 s/p laproscopic and hand Assisted Right hemicolectomy secondary to tubulovillous Adenoma of rectum. Pt referred to PT d/t deconditioning PMHX: Tubulovillous adenoma of colon (Acute) Trigger finger, left index finger (Acute) s/p left index finger trigger releaseSteroid-induced hyperglycemia (Acute) Obesity, morbid, BMI 40.0-49.9 (Acute) GERD (gastroesophageal reflux disease) (Chronic) Lumbar back pain with radiculopathy affecting left lower extremity (Acute) Lumbar nerve root compression (Acute) Herniation of left side of L4-L5 intervertebral disc (Acute) Cholelithiasis (Acute) Fatty liver (Acute) Peripheral neuropathy (Chronic) Non-insulin treated type 2 diabetes mellitus (Chronic) Lumbar back pain (Acute) Fall (Acute) Contusion of chest (Acute) Abdominal contusion (Acute) Rotator cuff tear, right (Acute) Primary osteoarthritis of right knee (Acute) Impingement syndrome of right shoulder (Acute) Tendonitis of long head of biceps brachii of right shoulder (Acute) Gross hematuria (Acute 12/25/15) Hydronephrosis, left (Chronic 04/01/16) Left ureteral stone (Acute 12/25/15) Lower urinary tract symptoms (LUTS) (Acute 01/19/16) Left ureteral stone (Acute) Surgical History (Updated 10/09/24 @ 07:33 by Marti Mack) Hx of colonoscopy with polypectomy (~09/2024) biopsies taken H/O cystoscopy Amputation of one or more toes Colonoscopy - IV Sedation (12/19/14) FLAVIO ROBERTO Social History/Home Situation: resides in 2 story home with his partner with 3 PACO or ramp. Pt has 12 Steps with B rails to his bedroom.. Pt independent and very active prior to hospitalization. 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 Equipment Owned/DME:none Subjective: Pt reports he walked last night 6 laps around the unit with the FWW with the Nurse but today he is more fatigued and feeling nauseous. Pt reports his chair is not very comfortable . (pt provided with electric recliner) Objective: [] General Observation: seated in chair with IV fluids infusing in right UE. His partner is visiting. Mental Status: A+Ox4 Pain: 3-4/ 10 abdomen Vital Signs: 121/58, HR 97 seated ROM: Right Upper Extremity: WNL Left Upper Extremity: WFL Right Lower Extremity: WNL except toe amp 1st,2nd, 3rd Left Lower Extremity: WNL Strength: Right Upper Extremity:>/= to 3/5 no resistance d/t abdominal surgery Left Upper Extremity: >/= to 3/5 no resistance d/t abdominal surgery Right Lower Extremity:>/= to 3/5 no resistance d/t abdominal surgery Left Lower Extremity: >/= to 3/5 no resistance d/t abdominal surgery Sensation: [] Bed Mobility/Transfers: supine to/from sit independent sit to from stand independent with increased time bed to from chair independent without AD Gait: amb without AD 25 feet x 2 SBA decreased step length increased lateral weight shift, shortened stride length, Stairs: Unable to attempt at this time d/t fatigue, Balance: [] Static Sitting: Normal Dynamic Sitting: Good above knee height Static Standing: Normal Dynamic Standing: Fair + without UE support Special Tests: Mobility Limitations Standardized Measure [facility] AM-PAC 6 clicks Basic Mobility Inpatient Short Form: Raw Score: 21 CMS Score: 28.97% deficit Informed Consent/Education: Patient instructed in purpose of PT consult and plan of care. Treatment: 94110: supine to from sit with cues for technique to reduce discomfort in abdomen sit to stand from various surfaces bed, chair and toilet with VC to exhale as he pushes up and as he lowers down to avoid holding breath. Assessment: Patient is a 74 year old male referred to physical therapy services with the diagnosis of s/p R hemicolectomy d/t tubulovillous adenoma. Patient presents with clinical signs and symptoms consistent with admitting diagnosis, as demonstrated by the following impairment level findings: 1. generalized weakness BLE major musculature 2. Impaired functional activity tolerance 3. impaired balance 4. pain in abdomen Impairments are contributing to the following functional limitations: 1. AMPAC score. 2. difficulty ambulating long distances without AD 3. increased time to complete ADL/ mobility tasks 4. difficulty performing stairs without assistance Patient is assessed as a Low [id number] complexity based on the following: History: as stated above Examination: as outlined above Presentation: evolving Decision Making: low Goals: Goals X1 week 1. Gait ambulate with LRD >300 feet independently without reports of pain 2. Stairs 12 steps with B rails supervision to safely get to from his bedroom within his home 3. demonstrate ability to perform breath control during transistions independently to reduce strain on abdomen Plan of Care/Treatment Plan: 1-2x/day, 7 days/week x 1 week. Plan of care has been reviewed with the [facility] providing the service under Physical Therapy direction. Initiate Physical Therapy intervention for strengthening, bed mobility, transfers, gait, stairs, balance training, use of assistive device. DISCHARGE RECOMMENDATIONS: [] [X] Home with no services [] [] Home with services [specify] [] Home with outpatient PT [] [] SNF for continued rehabilitation [] [] [facility] [] [] SNF versus LTC based on ability to participate and progress [] TREATMENT CODE/TIME: [id number] Yin Albert, PT [facility]
[2024-11-14 13:59] VITALS: BP 95/60; PULSE 80
--- NOTE | 2024-11-14 14:39 | PDOC.CMPRO ---
Date of service: 11/14/24 Time of Service: 14:39 Care Management Progress Note Progress Note Text Progress Note Text: Martin was sitting in a recliner when CM met with him. He is s/p hemicolectomy on 11/11/24 and remains admitted for pain management while progressing his diet, transitions to oral meds and increases his ambulation. He reports that his pain is better today, however he noted that his participated with PT was limited due to becoming light headed during the session. PT recommends home, no services at this time. CM will continue to follow. Discharge Potential Discharge Needs: PCP F/U Appt and Surgical F/U Appt Anticipated Barriers to Discharge: None Identified Patient/Family Education Needs: Review discharge instructions, discuss Ask Me Three Transportation: Private vehicle Plan: Anticipate Martin will discharge home via private vehicle with family once medically cleared. Patient will follow up with community providers and continue per the discharge plan of care when established. CM will continue to follow and assess for discharge needs. Social Determinants of Health Screening Will the Patient Participate in the Screening?: Declined to provide
--- NOTE | 2024-11-14 14:53 | PGE_ITS ---
Date of Service Date of service: 11/14/24 Time of Service: 14:53 Assessment and Plan Assessment and plan (1) Status post right hemicolectomy: Status: Acute Assessment and plan: His white blood cell count, and creatinine are little bit concerning, certainly raise the possibility of an anastomotic leak. Otherwise, vital signs have been reassuring through most of today. Will bolus a little bit of fluid today, and repeat the labs again tomorrow. I will try to hold off on the antibiotics for now, but certainly if the white blood cell count continues to rise, or he is any signs of fever, the will start the antibiotics empirically. Subjective Subjective Interval history since last seen: Martin had a little bit of difficulty sleeping through the night, he is quite tired today. He feels like his abdominal pain is increased a little bit today as well. He continues to have bowel movements, and pass flatus, but he is also had a little bit of burping. Exam GI Other: Abdomen is soft, mildly distended. Is just a little bit tympanitic. He does have bowel sounds. Objective Last Vital Signs Temp 97.6 F 11/14/24 06:57 Pulse 80 11/14/24 13:59 Resp 17 11/14/24 06:57 BP 95/60 L 11/14/24 13:59 Pulse Ox 98 11/14/24 06:57 Laboratory Results - last 24 hr 11/14/24 08:00 WBC 18.66 H RBC 4.87 Hgb 13.5 Hct 40.5 MCV 83 MCH 27.7 MCHC 33.3 RDW 13.2 Plt Count 211 MPV 11.4 H Sodium 137 Potassium 4.3 Chloride 102 Carbon Dioxide 24.8 Anion Gap 10.2 BUN 71 H Creatinine 2.1 H Est GFR (CKD-EPI 2020) 32.83 Glucose 297 H Calcium 9.8 C-Reactive Protein > 25.00 H Time Spent with Patient Time Spent with Patient: 35-49 minutes Time was spent: preparing to see the patient(eg.review tests), ordering medications,tests, procedures, referring, communicating with other health healthcare administration intern, indepentently interpreting results and counseling the patient
[2024-11-14] MEDS: Lactated Ringers 1,000 ML 1000 ML IV ×2 (15:02→18:54)
--- NOTE | 2024-11-14 15:27 | TELEFU_ITS ---
Date of service: 11/14/24 Time of Service: 15:27 Nutrition Note NOTE: Ching s/p R hemicolectomy on 11/11. Hx of steroid indcuted hyperglycemia - A1C in june 2023 at 6.7 and as high as 8.1 2011. Between they type of surgery, current inflammation (CRP 17.96 today) and use of steroids, his glucose has been significantly elevated with fasting glucose in the upper 200's yesterday and today and fingersticks at meals into the upper 200's recently and >300 at lunch today. Ordered for moderate sliding scale for meal corrections along with his home glipizide. Weight stable x1 year with small increase trend of 3kg. Labs: Hgb pending (was 9.5 yesterday), Hct 28.3, lytes wnl (no mag lab), BUN/Cr 107/2.2 Small diabetic wound noted by surgeon on R foot. Patient NPO since yesterday evening due to some nausea/vomiting with coffee ground emesis (also can contribute to his elevated glucose) Have offered various protein supplements to ching while taking po earlier this admission with taste no acceptable to ching. [place] body weight estimated at 79kg Estimated energy needs: 2782kcals using MFJ equation and 1.2 activity factor and 1.2 injury/stress factor. 118-158g protein for wound healing, and 3500mL fluid (BSA x1,500mL) Nutrition Dx: inadequate intake related to s/p abdominal surgery with current n/v complications as well as increased energy and protein needs post surgery with inflammation and possible infection as evidenced by current intake (NPO today) with minimal intake recently per pt interview. Intervention: Will offer protein/energy supplements when PO resumes. While npo could consider ordering liquid protein concentrate TID to be offered by nursing for an extra 45g protein daily. Recommend initiating basal insulin at 15 units HS and titrating q 2-3 days and consider resistant sliding scale for corrections until glucose starts responding and then adjusting. For wound healing would suggest vitamin D lab due to at risk for deficiency and it's role in wound healing. would suggest vitamin C at 500mg BID for wound healing. Suggest 220mg Zinc sulfate daily for wound healing. Will monitor weight, po intake/ONS acceptance and toleration, nutrition related labs/glucose Time Spent in Nutritional Counseling and Treatment: 20 min
--- NOTE | 2024-11-14 15:49 | PTTR_ITS ---
PT Notes Visit Reasons: Tubulovillous adenoma Inpatient Physical Therapy Treatment Note [facility] Date:11/14/2024 PRECAUTIONS:Standard, IV access RUE, Abdominal incision, Monitor BPs SUBJECTIVE: Pt reports he is still tired but would like to take a walk to do the loop at least once like he did yesterday with the Nurse. OBJECTIVE: Pt presented seated in chair RM Luida taking Vitals? PAIN: 3/10 abdomen VITALS: ? Pre-Treatment: 99/67 ? Post-Treatment: 95/60 HR 80? Therapeutic Activities ([id number]): Direct one-on-one instruction in dynamic activities to improve functional performance. ? BED MOBILITY/TRANSFERS? Sit-stand: SBA? Stand-sit: SBA ? -Ambulation Facilitated safe and correct performance of level surface ambulation covering a distance of 80 feet using use front wheeled walker with contact-guard assist and wheelchair follow for safety. Did not report of any increased pain. After 40 feet pt requested to turn back to room stating he did not feel right Pt decline to sit . Vitals taken upon return to recliner and RN notified. ASSESSMENT:? Pt with episode of light headedness with BP drop noted after am bulation. RN aware. Pt session shortened d/t BP and not feeling well. Nurse in with pt to restart IV Fluids . Pt seated in recliner with BLE elevated. PLAN: per POC TREATMENT CODE/TIME: 83286/ [id number] DISCHARGE RECOMMENDATION: Home with no services when medically appropriate uncertain for need of AD at this time.
[2024-11-14 16:58] VITALS: BP 116/52; PULSE 70; RESP 16; TEMP 36.2; O2SAT 97
[2024-11-14] MEDS: PIPERACILLIN/TAZO 3.375 GM in Normal Saline 50 ML IVPB ×2 (17:03→21:57)
[2024-11-14] MEDS: Pantoprazole 40 MG VIAL IVP (17:03)
--- NOTE | 2024-11-14 17:32 | CE_ITS ---
Date of service: 11/14/24 Time of Service: 17:32 Event Note: Martin had 2 episodes of nausea and vomiting this afternoon. Both were fairly abrupt, and productive of a few 100 mL of coffee-ground type emesis. He states he felt better after vomiting. His abdomen is soft, and overall less tender compared to this morning. He still has some bowel sounds, but they do seem a little more hypoactive compared to previous. Bandages are all clean, and the surrounding skin is healthy appearing. With the increased white blood cell count and creatinine, and now vomiting, I think initiating some antibiotics is very reasonable at this point. We talked about the challenges of diagnosing early postoperative complications such as leak and abscess. At this point, it like to try to wait just a little bit longer to allow this to mature a bit prior to obtaining a CT scan. Therefore, we will give the antibiotic some time, and I will also start some Protonix if it is the case that this is a stress ulcer (although the hemoglobin would argue against that). Certainly, if he has any other worrisome changes such as s ignificant hemodynamic instability, or worsening symptoms, then I think the short interval CT scan may be beneficial. Time Spent with Patient Time spent in critical care(minutes): 0 Time Spent Included: Time at immediate bedside
[2024-11-14 20:00] VITALS: BP 116/84; PULSE 84; RESP 18; TEMP 36.6; O2SAT 98
[2024-11-14] MEDS: Enoxaparin 40 MG/0.4 ML SYR SC (20:19)
[2024-11-14] MEDS: Simvastatin 20 MG TAB PO (20:19)
[2024-11-15] VITALS (10 sets, daily range): BP systolic 95–117; BP diastolic 49–67; PULSE 68–96; RESP 16–18; TEMP 35.9–36.8; O2SAT 94–98
[2024-11-15] MEDS: Ondansetron 4 MG/2 ML VIAL IVP ×3 (00:27→14:06)
[2024-11-15] MEDS: PIPERACILLIN/TAZO 3.375 GM in Normal Saline 50 ML IVPB ×4 (04:36→22:00)
[2024-11-15] MEDS: ACETAMINOPHEN 1,000 MG/100 ML BAG 400 MG IVPB ×3 (05:45→21:59)
[2024-11-15 06:28] LABS: HCT 28.3 % (40.0-50.0); HGB 9.5 g/dL (13.5-17.5); MCH 28.5 pg (27.0-33.0); MCHC 33.6 % (32.0-36.0); MCV 85 fL (80-95); MPV 12.1 fL (8.0-11.0); Platelet Count 150 10^3/uL (130-400); RBC 3.33 10^6/uL (4.36-5.78); RDW 13.4 % (11.8-14.1); RDW-SD 41.1 fL; WBC 15.00 10^3/uL (4.4-10.8)
[2024-11-15 07:05] LABS: Anion Gap 11.8 mmol/L (3-11); CO2 21.2 mmol/L (21.0-32.0); Calcium 8.9 mg/dL (8.5-10.1); Chloride 104 mmol/L (98-107); Estimated GFR 31.05 (mL/min/1.73m2); Glucose 274 mg/dL (74-106); Potassium 4.4 mmol/L (3.5-5.1); Sodium 137 mmol/L (136-145)
[2024-11-15 07:18] LABS: BUN 107 mg/dL (7-18)
[2024-11-15 07:28] LABS: C-Reactive Protein 17.96 mg/dL (<or=0.5)
[2024-11-15] MEDS: glipiZIDE 5 MG TAB PO (07:34)
[2024-11-15] MEDS: Multivitamin TAB 1 TAB PO (07:34)
[2024-11-15] MEDS: Normal Saline Flush 10 ML SYR IVP ×2 (07:35→11:53)
[2024-11-15] MEDS: Lactated Ringers 1,000 ML 1000 ML IV (07:52)
[2024-11-15] MEDS: Sucralfate 1 GM TAB PO ×3 (07:53→20:08)
[2024-11-15] MEDS: Insulin Aspart 300 UNITS/3 ML PEN SC ×3 (07:54→18:00)
--- NOTE | 2024-11-15 08:54 | PDOC.CMPRO ---
Date of service: 11/15/24 Time of Service: 08:54 Care Management Progress Note Progress Note Text Progress Note Text: Martin was sitting in a recliner when CM met with him, he is accompanied by his s/o Bassam. He is s/p hemicolectomy on 11/11/24 initially admitted for pain management while he progresses his diet, ambulation and to PO meds. He monitored for post surgical complications. He reports not feeling well and c/o abdominal discomfort, primarily on the right side, which he notes resolves after vomiting. He has been NPO since yesterday following a few episodes of vomiting coffee ground emesis. CM will follow. Discharge Potential Discharge Needs: PCP F/U Appt and Surgical F/U Appt Anticipated Barriers to Discharge: Medical Status Patient/Family Education Needs: Review discharge instructions, discuss Ask Me Three Transportation: Private vehicle Plan: Anticipate Martin will discharge home via private vehicle with family once medically cleared. Patient will follow up with community providers and continue per the discharge plan of care when established. CM will continue to follow and assess for discharge needs. Social Determinants of Health Screening Will the Patient Participate in the Screening?: Declined to provide
[2024-11-15] MEDS: HYDROmorphone 2 MG/ML SYR 1 MG IVP (11:52)
--- NOTE | 2024-11-15 13:15 | CHAPLAIN ---
Martin was up in the recliner when I visited this morning. He said he's not feeling well this morning and had a rough night. The first day after surgery he was feeling good, he said, but now has had two nights of not sleeping, pain and vomiting. He said he may have a CT scan later today. Martin said he has confidence in Dr. Rapp and is getting good care. 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 His significant other, Bassam will be in to visit later and was here most of the day yesterday. Martin explained that finding this mass and having surgery to remove it has given him a lot to think about, including his own mortality. 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
[2024-11-15 15:25] LABS: HGB 7.9 g/dL (13.5-17.5)
--- NOTE | 2024-11-15 16:00 | W.PM.PROGNOT ---
Date of Service Date of service: 11/15/24 Time of Service: 16:00 Assessment and Plan Assessment and plan (1) Status post right hemicolectomy: Status: Acute Assessment and plan: Despite more frequent vital sign checks, we still have not detected any fevers, and with a improving white blood cell count and CRP, I think an anastomotic complication or leak or other form of infection is less likely. The nature of the vomiting points more towards gastritis or bleeding gastric ulcer. He has only been on Protonix for less than 24 hours, but overall his vomiting seems to be decreasing compared to yesterday. Will plan for transfusion of packed red blood cells today, since I suspect the hemoglobin will be lower this afternoon compared to this morning. I have held the Lovenox even though I think that it is probably not contributing much to bleeding. Will be sure to place the SCDs to help minimize the chance of deep vein thrombosis, and encourage ambulation is much as possible. We have also started some sucralfate today. If he continues to have hematemesis through tomorrow, or if his hemoglobin does not improve after transfusion, then we could give stronger consideration to EGD for diagnostic and therapeutic purposes. Subjective Subjective Interval history since last seen: Martin had 1 episode of vomiting overnight, and then another 1 later this afternoon. Overall, they seem less frequent and smaller volume. In between episodes he feels better than before. Although he still quite tired today. Exam GI Other: Abdomen is soft, not really distended. His bowel sounds are little better today. He still has some tenderness, but it is very mild, and what I would expect after right hemicolectomy Objective Last Vital Signs Temp 98.2 F 11/15/24 15:28 Pulse 89 11/15/24 15:28 Resp 16 11/15/24 15:28 BP 95/61 L 11/15/24 15:28 Pulse Ox 98 11/15/24 15:28 Laboratory Results - last 24 hr 11/15/24 11/15/24 11/15/24 06:10 14:27 15:08 WBC 15.00 H RBC 3.33 L Hgb 9.5 L D 7.9 L Hct 28.3 L MCV 85 MCH 28.5 MCHC 33.6 RDW 13.4 Plt Count 150 MPV 12.1 H Sodium 137 Potassium 4.4 Chloride 104 Carbon Dioxide 21.2 Anion Gap 11.8 H BUN 107 H* Creatinine 2.2 H Est GFR (CKD-EPI 2020) 31.05 Glucose 274 H Calcium 8.9 C-Reactive Protein 17.96 H Crossmatch See Detail Time Spent with Patient Time Spent with Patient: >50 minutes Time was spent: preparing to see the patient(eg.review tests), ordering medications,tests, procedures, referring, communicating with other health healthcare administrative assistant, indepentently interpreting results and counseling the patient
[2024-11-15 16:27] LABS: Anion Gap 8.3 mmol/L (3-11); CO2 26.7 mmol/L (21.0-32.0); Calcium 8.5 mg/dL (8.5-10.1); Chloride 106 mmol/L (98-107); Estimated GFR 31.05 (mL/min/1.73m2); Glucose 291 mg/dL (74-106); Potassium 4.5 mmol/L (3.5-5.1); Sodium 141 mmol/L (136-145)
[2024-11-15 16:39] LABS: BUN 127 mg/dL (7-18)
[2024-11-15] MEDS: Insulin Glargine 300 UNITS/3 ML PEN 15 UNITS SC (21:09)
[2024-11-15] MEDS: Simvastatin 20 MG TAB PO (21:10)
[2024-11-16] VITALS (9 sets, daily range): BP systolic 114–131; BP diastolic 48–88; PULSE 73–99; RESP 16–20; TEMP 36.3–37.2; O2SAT 96–100
[2024-11-16] MEDS: PIPERACILLIN/TAZO 3.375 GM in Normal Saline 50 ML IVPB ×4 (03:57→21:39)
[2024-11-16] MEDS: Sucralfate 1 GM TAB PO ×4 (03:58→21:40)
[2024-11-16] MEDS: ACETAMINOPHEN 1,000 MG/100 ML BAG 400 MG IVPB (05:01)
[2024-11-16 06:28] LABS: HCT 22.8 % (40.0-50.0); HGB 7.7 g/dL (13.5-17.5); MCH 28.4 pg (27.0-33.0); MCHC 33.8 % (32.0-36.0); MCV 84 fL (80-95); MPV 11.6 fL (8.0-11.0); Platelet Count 218 10^3/uL (130-400); RBC 2.71 10^6/uL (4.36-5.78); RDW 13.8 % (11.8-14.1); RDW-SD 41.8 fL; WBC 12.70 10^3/uL (4.4-10.8)
[2024-11-16 06:58] LABS: Anion Gap 9.0 mmol/L (3-11); C-Reactive Protein 7.07 mg/dL (<or=0.5); CO2 27.0 mmol/L (21.0-32.0); Calcium 8.9 mg/dL (8.5-10.1); Chloride 107 mmol/L (98-107); Estimated GFR 37.02 (mL/min/1.73m2); Glucose 259 mg/dL (74-106); Potassium 3.9 mmol/L (3.5-5.1); Sodium 143 mmol/L (136-145)
[2024-11-16 07:02] LABS: BUN 112 mg/dL (7-18)
[2024-11-16] MEDS: Insulin Aspart 300 UNITS/3 ML PEN SC ×3 (08:22→16:57)
[2024-11-16] MEDS: glipiZIDE 5 MG TAB PO (08:22)
[2024-11-16] MEDS: Pantoprazole 40 MG VIAL IVP (08:22)
[2024-11-16] MEDS: Multivitamin TAB 1 TAB PO (08:22)
[2024-11-16] MEDS: Normal Saline Flush 10 ML SYR IVP ×2 (08:23→21:38)
--- NOTE | 2024-11-16 08:49 | PGE_ITS ---
Date of Service Date of service: 11/16/24 Time of Service: 08:49 Assessment and Plan Assessment and plan (1) Status post right hemicolectomy: Status: Acute Assessment and plan: White blood cell count and CRP continue to trend towards normal, and in that regard I think infection is less likely here. The overall picture, again, seems most consistent with stress gastritis. And clinical signs seem to suggest that he is responding to proton pump inhibitor therapy and sucralfate. I think it is reasonable to advance him back up to clear liquids today. Hopefully that will h elp buffer the stomach a little bit as well. I will give him another unit of packed red blood cells since his hemoglobin remains fairly low, and he has some ongoing symptoms of his acute blood loss anemia. I am happy to see the creatinine and BUN improving today, and hopefully the transfusion will also help drive improvements of kidney function. Like to see him up and moving around a little bit today if he can tolerate that. If he does okay with the liquids, will slowly advance so long as it does not exacerbate any nausea or vomiting. Subjective Subjective Interval history since last seen: Martin tells me that he felt a little bit better after the blood transfusion, with a little more energy last evening. His quality of sleep was a little bit better overnight as well. He did have some retching and low-volume emesis, but overall seems to be doing better. Urine volume was reassuring through the evening and nighttime. Exam GI Other: Abdomen remains soft, not very distended. His bowel sounds are improving. Tenderness is about the same, or maybe a little bit less than previous Objective Last Vital Signs Temp 98.4 F 11/16/24 07:32 Pulse 94 H 11/16/24 07:32 Resp 16 11/16/24 07:32 BP 125/57 L 11/16/24 07:32 Pulse Ox 99 11/16/24 07:32 Laboratory Results - last 24 hr 11/15/24 11/15/24 11/16/24 15:08 15:59 06:06 WBC 12.70 H RBC 2.71 L Hgb 7.9 L 7.7 L Hct 22.8 L MCV 84 MCH 28.4 MCHC 33.8 RDW 13.8 Plt Count 218 MPV 11.6 H Sodium 141 143 Potassium 4.5 3.9 Chloride 106 107 Carbon Dioxide 26.7 27.0 Anion Gap 8.3 9.0 BUN 127 H* 112 H* Creatinine 2.2 H 1.9 H Est GFR (CKD-EPI 2020) 31.05 37.02 Glucose 291 H 259 H Calcium 8.5 8.9 C-Reactive Protein 7.07 H ABO/Rh O Positive Antibody Screen NEGATIVE Crossmatch See Detail Time Spent with Patient Time Spent with Patient: 35-49 minutes Time was spent: preparing to see the patient(eg.review tests), ordering medications,tests, procedures, indepentently interpreting results and counseling the patient
[2024-11-16] MEDS: Lactated Ringers 1,000 ML 75 ML IV ×2 (10:16→19:10)
--- NOTE | 2024-11-16 11:20 | PT.INNT ---
PT Notes Visit Reasons: Tubulovillous adenoma Patient, Nurse Black, and Nurse Isabella awaiting ED nurse to perform US-guided IV insertion as of right now. Patient will also be receiving more blood today. Will plan to see patient this afternoon after today's procedures for gradual functional mobility progression.
--- NOTE | 2024-11-16 16:28 | PT.INTREAT ---
PT Notes Visit Reasons: Tubulovillous adenoma Inpatient Physical Therapy Treatment Note [facility] Date:11/16/2024 PRECAUTIONS: Standard. Hemicolectomy surgical incision, caution against use of gait belt in lower abdominal area. SUBJECTIVE: Reported pain in R abdominal area that worsened after walking activity despite Tylenol intake. Nurse Isabella jefferson. Understands the importance of clear liquid diet. OBJECTIVE: General Observation: Seated on bedside recliner. Bassam present in room. Hemicolectomy incision covered with dressing. Drain in place. IV through L UE.? PAIN: 4-5/10 abdomen at rest in R abdominal area, 6/10 with walking VITALS: BP has improved and continues to be monitored by nursing staff BED MOBILITY/TRANSFERS: ? Minimal cueing provided for use of B hands as needed for support and AD management to reduce fall risk and minimize pain report ? Sit-stand: supervision with FWW? Stand-sit: supervision with FWW Bedside chair to toilet stand by assist with FWW Toilet to bedside chair stand by assist with FWW? GAIT: Facilitated safe and correct performance of level surface ambulation covering a distance of 15 feet from edeg of bed to toilet and then 100 feet using FWW with contact guard assist and IV pole management of PT, Bassam provided wheelchair follow. Steps were cautious and slowed due to increasing pain/soreness in the R abdominal area. No LOB. Minimal SOB subsided with rest. Denied headache, chest pain, and lightheadedness throughout session. ASSESSMENT:? Patient has received his second unit of PRBC earlier today and has verbalized improvement in general energy level. Tolerated level surface ambulation in the hallway after voiding urine and stool with no diziness but with soreness/pain in the R abdominal area which Nurse Isabella was made aware of. Gait pattern affected by pain level in abdominal area. PLAN: Progress to unassisted ambulation as tolerated to facilitate return to community ambulation. DISCHARGE RECOMMENDATION: HH PT vs no services based on progress towards goals. Will continue to assess need for walker at home and provided needed AD per protocol. TREATMENT CODE/TIME: 62631 x 53 minutes for 4 units (16:28-17:21). No charge was made for visit done from 14:54-17:21 pm.
[2024-11-16] MEDS: Acetaminophen 325 MG TAB PO (16:57)
[2024-11-16] MEDS: HYDROmorphone 2 MG/ML SYR IVP (18:55)
[2024-11-16] MEDS: Simvastatin 20 MG TAB PO (20:01)
[2024-11-16] MEDS: Insulin Glargine 300 UNITS/3 ML PEN 15 UNITS SC (20:01)
[2024-11-16] MEDS: HYDROmorphone 2 MG/ML SYR 1 MG IV (22:55)
--- NOTE | 2024-11-17 | DI.CT_ITS ---
Exam(s) CT ABDOMEN PELVIS W EXAM: CT ABDOMEN PELVIS W CLINICAL HISTORY: abdominal pain after right hemicolectomy TECHNIQUE: Imaging Protocol: Axial computed tomography images with coronal and sagittal reformatted images were created and reviewed. CONTRAST MATERIAL: Intravenous: Omnipaque 350 Contrast volume:100 mL Oral: Yes COMPARISON: CT CT CHEST/ABD/PEL W from 10/11/2024 FINDINGS: ABDOMEN: Lung Bases: Mild atelectasis is seen in the lung bases. No basilar pleural effusion is seen. Coronary artery calcifications are present. There is scarring or atelectasis in the lung bases. Liver: Normal density. No measurable mass. Portal, Superior Mesenteric, and Splenic Veins: Unremarkable. Gallbladder and Biliary Tract: There is high density material in the dependent portion of the fundus of the gallbladder likely reflecting small stones. There is no biliary ductal dilatation. Pancreas: Normal density, no abnormal calcifications or inflammatory process. Spleen: Normal. Adrenals: No masses seen. Kidneys: There is marked left renal cortical atrophy. There is dilatation of the left renal collecting system until just proximal to the UVJ. This is unchanged compared to the examination from 10/11/2024. There are bilateral renal cysts which appear stable. No follow-up is recommended. The right kidney shows no evidence of nephrolithiasis or hydronephrosis. Abdominal Aorta: Abdominal portion non-dilated. Atherosclerotic calcification is present. Bowel: There is dilatation of the stomach and small bowel proximally. There is a transition in the mid abdomen (series 8 images 82 through 99. No obstructing lesion is seen. No extrinsic compression is present. The distal small bowel is of normal caliber. The patient is status post right hemicolectomy with an enterocolic anastomosis seen in the right abdomen. (Series 8, image 60. There is no focal fluid collection seen at the anastomosis is suggest an abscess. There is a small amount of fluid seen in the right pericolic gutter and adjacent to the now stenosis. There also few tiny foci of extraluminal air near the anastomosis (series 8, image 55 and series 8, image 51). Peritoneal Cavity: Please see the above section under bowel. Lymph Nodes: Within normal limits. Bones: Within normal limits for the patient's age. Soft Tissues: There are small fat containing bilateral inguinal hernias. There is a midline surgical incision site. PELVIS: Bladder: There is a small focus of air in the urinary bladder. This may be due to recent instrumentation/Ramos catheter placement. There again seen several calcifications within the urinary bladder which may represent multiple stones. Reproductive Organs: The prostate gland is enlarged. Lymph Nodes: Within normal limits. Bones: Within normal limits for the patient's age. IMPRESSION: 1. Status post right hemicolectomy. At the anastomosis there is a small amount of fluid surrounding the anastomosis and a few tiny foci of air. Please correlate with the time of the surgery, but leak may be considered. 2. Dilatation of the stomach and proximal small bowel without obvious mass or extrinsic compression at the transition. This may represent an ileus. Bowel obstruction cannot be entirely excluded. 3. Incidental findings in the abdomen and pelvis as described above. RADIATION DOSE DELIVERED: 1,151.77mGy.cm Total DLP DATA REPOSITORY: All CT scans at this facility are submitted to the National Radiology Data Registry (NRDR) Dose Index Registry (DIR) with the [employer] (A[employer]). RADIATION OPTIMIZATION: All CT scans at this facility use at least one of these dose optimization techniques: automated exposure control; mA and/or kV adjustment per patient size (includes targeted exams where dose is matched to clinical indication); or iterative reconstruction.
[2024-11-17] MEDS: Acetaminophen 325 MG TAB PO ×4 (02:10→15:48)
[2024-11-17] MEDS: PIPERACILLIN/TAZO 3.375 GM in Normal Saline 50 ML IVPB ×2 (03:42→10:42)
[2024-11-17] MEDS: Sucralfate 1 GM TAB PO ×3 (03:43→15:48)
[2024-11-17] MEDS: HYDROmorphone 2 MG/ML SYR 1 MG IV ×2 (03:43→08:14)
[2024-11-17] MEDS: Pantoprazole 40 MG TABCR PO (06:37)
[2024-11-17 07:11] LABS: HCT 26.9 % (40.0-50.0); HGB 8.7 g/dL (13.5-17.5); MCH 28.4 pg (27.0-33.0); MCHC 32.3 % (32.0-36.0); MCV 88 fL (80-95); MPV 10.9 fL (8.0-11.0); Platelet Count 241 10^3/uL (130-400); RBC 3.06 10^6/uL (4.36-5.78); RDW 14.6 % (11.8-14.1); RDW-SD 45.9 fL; WBC 10.82 10^3/uL (4.4-10.8)
[2024-11-17 07:12] VITALS: BP 100/50; PULSE 74; RESP 18; TEMP 36.4; O2SAT 99
[2024-11-17 07:40] LABS: Anion Gap 9.3 mmol/L (3-11); BUN 52 mg/dL (7-18); CO2 26.7 mmol/L (21.0-32.0); Calcium 8.5 mg/dL (8.5-10.1); Chloride 111 mmol/L (98-107); Estimated GFR 58.37 (mL/min/1.73m2); Glucose 183 mg/dL (74-106); Potassium 3.7 mmol/L (3.5-5.1); Sodium 147 mmol/L (136-145)
[2024-11-17] MEDS: Multivitamin TAB 1 TAB PO (08:16)
[2024-11-17] MEDS: Normal Saline Flush 10 ML SYR IVP ×3 (08:16→20:00)
[2024-11-17] MEDS: glipiZIDE 5 MG TAB PO (08:16)
[2024-11-17] MEDS: Insulin Aspart 300 UNITS/3 ML PEN SC ×3 (08:19→17:34)
[2024-11-17] MEDS: Lactated Ringers 1,000 ML 75 ML IV ×2 (08:37→23:17)
[2024-11-17] MEDS: Breeza Beverage 473 ML BTL PO (09:49)
[2024-11-17] MEDS: Omnipaque 350 MG/ML 50 ML BTL PO (09:50)
--- NOTE | 2024-11-17 10:59 | W.PM.PROGNOT ---
Date of Service Date of service: 11/17/24 Time of Service: 10:59 Assessment and Plan Assessment and plan (1) Status post right hemicolectomy: Status: Acute Assessment and plan: He remains afebrile and with a normalizing white blood cell count (although I still have him on Zosyn), but the pain is certainly alarming, and I think ruling out an abscess is really the only option at this point. Fortunately, his acute kidney injury seems to be resolved, and his creatinine is the best it has been since well before surgery. Therefore, I think this is our window to get a CAT scan to see if there is anything else that needs to be addressed. I will place that order this morning, we will see what the results show before making any other decisions. Subjective Subjective Interval history since last seen: Martin continues to have right-sided abdominal pain through the night. It was fairly consistent with only minimal relief with medications. It is increased today, he says it is about 10 out of 10. He has had no more episodes of nausea or vomiting. Exam GI Other: His abdomen is soft, and no more distended than previous days. He does have bowel sounds. He is tender on the right side, but it seems like it is about the same as the past 24 hours. Objective Last Vital Signs Temp 97.5 F L 11/17/24 07:12 Pulse 74 11/17/24 07:12 Resp 18 11/17/24 07:12 BP 100/50 L 11/17/24 07:12 Pulse Ox 99 11/17/24 07:12 Laboratory Results - last 24 hr 11/15/24 11/17/24 15:59 06:17 WBC 10.82 H RBC 3.06 L Hgb 8.7 L Hct 26.9 L MCV 88 D MCH 28.4 MCHC 32.3 RDW 14.6 H Plt Count 241 MPV 10.9 Sodium 147 H Potassium 3.7 Chloride 111 H Carbon Dioxide 26.7 Anion Gap 9.3 BUN 52 H Creatinine 1.3 Est GFR (CKD-EPI 2020) 58.37 Glucose 183 H Calcium 8.5 ABO/Rh O Positive Antibody Screen NEGATIVE Crossmatch See Detail Time Spent with Patient Time Spent with Patient: 35-49 minutes Time was spent: preparing to see the patient(eg.review tests), ordering medications,tests, procedures, referring, communicating with other health senior care manager, indepentently interpreting results and counseling the patient
[2024-11-17] MEDS: Normal Saline - Diluent 50 ML VIAL IJ (11:31)
[2024-11-17] MEDS: Omnipaque 350 MG/ML 100 ML BTL IJ (11:33)
[2024-11-17] MEDS: Simethicone 80 MG CHEW 40 MG PO ×2 (12:47→17:16)
--- NOTE | 2024-11-17 15:35 | PT.INTREAT ---
PT Notes Visit Reasons: Tubulovillous adenoma Inpatient Physical Therapy Treatment Note [facility] Date:11/17/2024 PRECAUTIONS: Standard. Hemicolectomy surgical incision, caution against use of gait belt in lower abdominal area. Activity as tolerated. SUBJECTIVE: Continues to be bothered by discomfort in R abdominal area, requested a pain pill from Nurse Mason prior to working with PT. OBJECTIVE: General Observation: Seated on bedside recliner. Bassam present in room. Hemicolectomy incision covered with dressing. Drain in place. IV through L UE.? PAIN: 4-5/10 abdomen at rest in R abdominal area, 6/10 with walking VITALS: BP has improved and continues to be monitored by nursing staff BED MOBILITY/TRANSFERS: ? Minimal cueing provided for use of B hands as needed for support and AD management to reduce fall risk and minimize pain report ? Sit-stand: supervision with FWW? Stand-sit: supervision with FWW Bedside chair to toilet stand by assist with FWW Toilet to bedside chair stand by assist with FWW? GAIT: Facilitated safe and correct performance of level surface ambulation covering a distance of 200 feet using FWW with stand by assist and wheelchair follow of PT. Gait speed improved but persistent report of pain/soreness in R abominal area. No LOB. Minimal SOB subsided with rest. Denied headache, chest pain, and lightheadedness throughout activity. Able to walk about 5 steps without AD back to his chair after hallway ambulation. ASSESSMENT:? Tolerated significant mileage on level surface ambulation in the hallway after voiding urine and stool with no diziness but with soreness/pain in the R abdominal area which Nurse Mason was made aware of. Gait pattern affected by pain level in abdominal area. PLAN: Progress to unassisted ambulation as tolerated by patient to facilitate return to community ambulation. DISCHARGE RECOMMENDATION: HH PT vs no services based on progress towards goals. Will continue to assess need for walker at home and provided needed AD per protocol. TREATMENT CODE/TIME: 66024 x 28 minutes for 2 units (15:35-16:03).
[2024-11-17 19:49] VITALS: BP 136/57; PULSE 65; RESP 16; TEMP 36.6; O2SAT 100
[2024-11-17] MEDS: Insulin Glargine 300 UNITS/3 ML PEN 15 UNITS SC (19:59)
[2024-11-17] MEDS: Simvastatin 20 MG TAB PO (19:59)
--- NOTE | 2024-11-18 | DI.RAD_ITS ---
Exam(s) XR ABDOMEN FLAT PLATE EXAM: 2D digital imaging was performed. CLINICAL HISTORY: ileus. COMPARISON: CR ABDOMEN FLAT PLATE from 12/25/2015 TECHNIQUE: Supine views of the abdomen was performed. Four images were obtained. FINDINGS: LUNG BASES: Clear. BOWEL GAS PATTERN: The stomach is moderately distended. There are dilated loops of small and large bowel. There is air seen in the rectum. FREE AIR: None. CALCIFICATIONS: No radiopaque calcifications. OSSEOUS STRUCTURES: Normal for age. OTHER FINDINGS: Bowel anastomotic clips are seen in the right abdomen. There are skin staple seen in the midline of the abdomen. There is contrast seen in the urinary bladder consistent with the patient's recent CT examination. IMPRESSION: 1. Dilated loops of small and large bowel and the stomach. This may represent an ileus. Obstruction not entirely excluded. Follow-up as clinically appropriate. 2. Postsurgical changes in the right abdomen. 3. The preliminary [facility] report was reviewed. DATA REPOSITORY: RADIATION DOSE DELIVERED:
--- NOTE | 2024-11-18 | DI.RAD_ITS ---
Exam(s) XR ABDOMEN FLAT UPRIGHT EXAM: 2D digital imaging was performed. CLINICAL HISTORY: RLQ abd pain after hemicolectomy, ileus. COMPARISON: CR,XR XR ABDOMEN FLAT PLATE from 11/18/2024 TECHNIQUE: Supine and uprightSupine and Lateral views of the abdomen were performed. FINDINGS: BOWEL GAS PATTERN: Nasogastric tube in stomach. Small amount of free air is noted beneath the right diaphragm. Dilated loops of small bowel with air-fluid levels which could indicate ileus versus obstruction. Small amount of contrast noted within the right distal small bowel as well as colon. CALCIFICATIONS: Bladder calculi are visible. OSSEOUS STRUCTURES: Normal for age. Visualized portions of chest: Unremarkable. Soft tissues: Unremarkable midline skin ree. IMPRESSION: 1. Dilated loops of small bowel with air-fluid levels, ileus versus obstruction. 2. Small amount of residual free air beneath the diaphragm. DATA REPOSITORY: RADIATION DOSE DELIVERED:
[2024-11-18] MEDS: HYDROmorphone 2 MG/ML SYR 1 MG IV ×3 (01:22→16:37)
[2024-11-18] MEDS: Pantoprazole 40 MG TABCR PO (05:09)
[2024-11-18] MEDS: Sucralfate 1 GM TAB PO ×2 (05:09→09:19)
[2024-11-18 07:03] LABS: HCT 25.5 % (40.0-50.0); HGB 8.5 g/dL (13.5-17.5); MCH 29.6 pg (27.0-33.0); MCHC 33.3 % (32.0-36.0); MCV 89 fL (80-95); MPV 11.7 fL (8.0-11.0); Platelet Count 183 10^3/uL (130-400); RBC 2.87 10^6/uL (4.36-5.78); RDW 14.7 % (11.8-14.1); RDW-SD 45.7 fL; WBC 8.10 10^3/uL (4.4-10.8)
[2024-11-18 07:06] LABS: Anion Gap 9.8 mmol/L (3-11); BUN 28 mg/dL (7-18); C-Reactive Protein 2.59 mg/dL (<or=0.5); CO2 29.2 mmol/L (21.0-32.0); Calcium 8.7 mg/dL (8.5-10.1); Chloride 106 mmol/L (98-107); Estimated GFR 79.97 (mL/min/1.73m2); Glucose 140 mg/dL (74-106); Potassium 3.6 mmol/L (3.5-5.1); Sodium 145 mmol/L (136-145)
[2024-11-18 07:08] VITALS: BP 120/52; PULSE 83; RESP 16; TEMP 36.2; O2SAT 98
[2024-11-18] MEDS: Normal Saline Flush 10 ML SYR IVP ×2 (08:30→20:33)
--- NOTE | 2024-11-18 08:41 | DI.[facility]_ITS ---
PROCEDURE INFORMATION: Exam: XR Abdomen Exam date and time: 11/18/2024 7:58 AM Age: 74 years old Clinical indication: Other: Ileus TECHNIQUE: Imaging protocol: Radiologic exam of the abdomen. Views: Frontal supine view of the abdomen. 1 View. COMPARISON: CT ABDOMEN PELVIS W 11/17/2024 11:27 AM FINDINGS: Gastrointestinal tract: The stomach is distended 23 cm with air.. . Dilated loops of small bowel may represent obstruction or ileus.. Bones/joints: Moderate degenerative changes in both hips and sacroiliac joints IMPRESSION: 1. The stomach is distended 23 cm with air.. . 2. Dilated loops of small bowel may represent obstruction or ileus.. Dictated and Authenticated by: Brenda Borden MD. Orderin Dionte Salgado MD
[2024-11-18] MEDS: Insulin Aspart 300 UNITS/3 ML PEN SC (09:15)
[2024-11-18] MEDS: Simethicone 80 MG CHEW 40 MG PO (09:19)
[2024-11-18] MEDS: glipiZIDE 5 MG TAB PO (09:19)
[2024-11-18] MEDS: Multivitamin TAB 1 TAB PO (09:20)
--- NOTE | 2024-11-18 10:01 | PGE_ITS ---
Date of Service Date of service: 11/18/24 Time of Service: 10:01 Assessment and Plan Assessment and plan (1) Status post right hemicolectomy: Status: Acute Assessment and plan: progressing. Improved in last 24h. Gas bubble in stomach and proxmal small bowel distention producing persistent discomfort. Ileus resolving with gas and stools out today, but I think helping this along with gastric decompression may help him to feel better sooner. Ambulate, take zofran, and belch. If this does not help the abd pain and nausea by 2pm we will place an NG tube to decompress him. He would keep the NG til tomorrow morning and reassessment would determine if okay to pull or not. Ice chips and sips only for comfort today until distention improves. Shower today with sara dressing unplugged from the pump. Plug back in and turn on after shower. (2) Ileus: Status: Acute Assessment and plan: I suspect ileus over obstruction. Not clear that the oral contrast passed into the colon on XR, but the gas pattern change into the colon and the BM/flatus support an improving ileus. Possible he has stress gastritis or ulcer that resulted in PO bleed and ileus. He is improving. I will change his PPI to BID IV until discharge to help with this. He has had bleeding gastric ulcer remotely in the past. (3) Acute blood loss anemia: Status: Acute Assessment and plan: stable hgb. recheck in AM. Creatinine and UOP normal, crp almost back to normal. All suggest an improving course. Subjective Subjective Interval history since last seen: feeling slightly better in multiple ways. Says he doesnt feel a lot better, but little bits of improvement. Passing gas and had a BM this morning. BM is black-green in color. Upper abdominal distention is a little softer. Still nauseated though. Urine is more clear-yellow today. He walked yesterday but night time abd pain was more than he could stand to walk with. Exam Narrative Exam Narrative: awake, NAD eomi, MMM normal resp effort abdomen is distended in the epigastrium and mid abdomen, lower abdoen is soft and round. SARA dressing c/d/i Objective Last Vital Signs Temp 97.2 F L 11/18/24 07:08 Pulse 83 11/18/24 07:08 Resp 16 11/18/24 07:08 BP 120/52 L 11/18/24 07:08 Pulse Ox 98 11/18/24 07:08 Laboratory Results - last 24 hr 11/18/24 06:00 WBC 8.10 RBC 2.87 L Hgb 8.5 L Hct 25.5 L MCV 89 MCH 29.6 MCHC 33.3 RDW 14.7 H Plt Count 183 MPV 11.7 H Sodium 145 Potassium 3.6 Chloride 106 Carbon Dioxide 29.2 Anion Gap 9.8 BUN 28 H Creatinine 1.0 Est GFR (CKD-EPI 2020) 79.97 Glucose 140 H Calcium 8.7 C-Reactive Protein 2.59 H Time Spent with Patient Time Spent with Patient: 35-49 minutes Time was spent: preparing to see the patient(eg.review tests), ordering medications,tests, procedures, referring, communicating with other health cattle care worker and counseling the patient
[2024-11-18] MEDS: Ondansetron 4 MG/2 ML VIAL IVP (11:41)
--- NOTE | 2024-11-18 12:45 | DI.RAD_ITS ---
Exam(s) XR PORTABLE CHEST AP EXAM: XR PORTABLE CHEST AP CLINICAL HISTORY: NG tube placement confirmation TECHNIQUE: 2D digital imaging was performed of the chest. Two images were obtained. AP views were obtained. COMPARISON: CR,RF RF BARIUM SWALLOW from 03/30/2022 CR,XR XR ABDOMEN FLAT PLATE from 11/18/2024 FINDINGS: There has been interval placement of a nasogastric tube. The tip of the catheter is in the stomach. The side-port is at or just beyond the gastroesophageal junction. The catheter may be advanced to ensure the side-port is in the stomach. MEDIASTINUM: Normal. HEART: Normal. PULMONARY VASCULATURE: Normal. LUNGS: Clear. PLEURAL SPACE: No pleural effusion or pneumothorax. BONE:Within normal limits for the patient's age. OTHER FINDINGS:Normal. IMPRESSION: 1. No acute pulmonary findings. 2. Interval placement of a nasogastric tube. The tip of the catheter is in the stomach. The side-port is at or just beyond the gastroesophageal junction. The catheter may be advanced to ensure proper positioning of the side port. DATA REPOSITORY: RADIATION DOSE DELIVERED:
--- NOTE | 2024-11-18 16:48 | PT.INNT ---
PT Notes Visit Reasons: Tubulovillous adenoma Attempted rx x 2. 1st attempt pt reported increased right lower abdominal pain that extended into his testicles. He rated the pain at 10/10. Able to perform sit to stand transfer with min assist to CG of 1 but was unable to participate beyond this due to pain. 2nd attempt: Returned later in the pm and NG tube had just been placed and pt was waiting for results to ensure tube was in the correct placement. He declined PT at that time due to pain and wanting to make sure tube was correctly placed prior to doing PT. Unable to return for a 3rd attempt due to time constraints.
[2024-11-18] MEDS: ACETAMINOPHEN 1,000 MG/100 ML BAG 400 MG IVPB ×2 (18:33→23:25)
[2024-11-18 18:34] LABS: HCT 27.1 % (40.0-50.0); HGB 8.7 g/dL (13.5-17.5); MCH 28.7 pg (27.0-33.0); MCHC 32.1 % (32.0-36.0); MCV 89 fL (80-95); MPV 10.1 fL (8.0-11.0); Platelet Count 295 10^3/uL (130-400); RBC 3.03 10^6/uL (4.36-5.78); RDW 14.9 % (11.8-14.1); RDW-SD 45.7 fL; WBC 9.89 10^3/uL (4.4-10.8)
[2024-11-18] MEDS: HYDROmorphone 2 MG/ML SYR 1 MG IVP ×2 (18:34→21:41)
--- NOTE | 2024-11-18 18:40 | W.PM.PROGNOT ---
Date of Service Date of service: 11/18/24 Time of Service: 18:41 Assessment and Plan Assessment and plan (1) Ileus: Status: Acute Assessment and plan: more intense spasms of pain today in RLQ. They occur with sudden movements of the core such as adjusting in recliner etc. Changed meds to IV, scheduled tylenol and q2h prn dilaudid. Will check labs and xr to ensure no clinical change from this morning. His exam is reassuring but objective data will help to be sure no change in plan is warranted. Questions answered to patient and partners satisfaction. (2) Status post right hemicolectomy: Status: Acute Subjective Subjective Interval history since last seen: partner expressed a lot of concern about patient through the day and requested reevaluation by physician. Martin has had pain spasms in the RLQ today, occurring more severely than the last couple of days. They occur when he shifts positions in the recliner. pressing his foot down to help him kick back in the seat causes sharp severe spasm like pains that last seconds to minutes. Partner also notes rectal pain in the lower abdomen at times today. They were concerned after NG was placed about how much bile came out, it made them worry somethng was wrong because they were expecting a gaseous decompression not a fluid decompression. Pt has passed more flatus and had more BMs today. Has not had gas while in the recliner but when he goes to have a BM there is more and more gas each time. His nausea has resolved since NG placement. abdominal distention has also improved a lot. Exam Narrative Exam Narrative: awake, conversive, calm eomi, MMM NG is dark bilious, 1L out so far since placement at 1230pm. abdomen is round, softer than this mornings exam w improvement in upper abdominal distention. Mild tenderness LLQ and RLQ. Objective Last Vital Signs Temp 97.2 F L 11/18/24 07:08 Pulse 83 11/18/24 07:08 Resp 16 11/18/24 07:08 BP 120/52 L 11/18/24 07:08 Pulse Ox 98 11/18/24 07:08 Laboratory Results - last 24 hr 11/18/24 11/18/24 06:00 18:25 WBC 8.10 9.89 RBC 2.87 L 3.03 L Hgb 8.5 L 8.7 L Hct 25.5 L 27.1 L MCV 89 89 MCH 29.6 28.7 MCHC 33.3 32.1 RDW 14.7 H 14.9 H Plt Count 183 295 D MPV 11.7 H 10.1 Sodium 145 Potassium 3.6 Chloride 106 Carbon Dioxide 29.2 Anion Gap 9.8 BUN 28 H Creatinine 1.0 Est GFR (CKD-EPI 2020) 79.97 Glucose 140 H Calcium 8.7 C-Reactive Protein 2.59 H Time Spent with Patient Time Spent with Patient: >50 minutes Time was spent: ordering medications,tests, procedures and counseling the patient
[2024-11-18 18:48] LABS: C-Reactive Protein 3.16 mg/dL (<or=0.5)
[2024-11-18 18:50] LABS: ALT 81 U/L (16-63); AST 69 U/L (15-37); Albumin 2.7 g/dL (3.4-5.0); Alkaline Phosphatase 136 U/L (46-116); Anion Gap 7.8 mmol/L (3-11); BUN 23 mg/dL (7-18); Bilirubin, Total 0.6 mg/dL (0.2-1.0); CO2 29.2 mmol/L (21.0-32.0); Calcium 8.6 mg/dL (8.5-10.1); Chloride 107 mmol/L (98-107); Estimated GFR 79.97 (mL/min/1.73m2); Glucose 116 mg/dL (74-106); Magnesium 2.0 mg/dL (1.8-2.4); Potassium 3.8 mmol/L (3.5-5.1); Sodium 144 mmol/L (136-145); Total Protein 6.2 g/dL (6.4-8.2)
[2024-11-18] MEDS: Insulin Glargine 300 UNITS/3 ML PEN 15 UNITS SC (20:33)
[2024-11-18] MEDS: Pantoprazole 40 MG VIAL IVP (20:34)
[2024-11-18 20:56] VITALS: BP 109/48; PULSE 89; RESP 20; TEMP 36.4; O2SAT 93
--- NOTE | 2024-11-18 21:12 | DI.[facility]_ITS ---
PROCEDURE INFORMATION: Exam: XR Abdomen Exam date and time: 11/18/2024 8:00 PM Age: 74 years old Clinical indication: Abdominal pain; Localized; Right lower quadrant (rlq); Prior surgery; Surgery date: 3-7 days post-operative; Surgery type: Rlq pain after hemicolectomy, ileus TECHNIQUE: Imaging protocol: Radiologic exam of the abdomen. Views: 2 Views. Upright and supine views. COMPARISON: CR XR ABDOMEN FLAT PLATE 11/18/2024 7:58 AM FINDINGS: Tubes, catheters and devices: A gastric feeding tube is present within the stomach. Gastrointestinal tract: Dilated fluid-filled loops of small bowel, likely represents postop ileus, this could also represent small bowel obstruction. Intraperitoneal space: Surgical clips noted in the abdomen and pelvis. Bones/joints: Unremarkable IMPRESSION: Dilated fluid-filled loops of small bowel, likely represents postop ileus, this could also represent small bowel obstruction. Dictated and Authenticated by: Hilaria Booker MD. Orderin Jeannine Karft MD
[2024-11-18] MEDS: Lactated Ringers 1,000 ML 75 ML IV (23:26)
[2024-11-19] MEDS: HYDROmorphone 2 MG/ML SYR 1 MG IVP ×5 (02:56→14:47)
[2024-11-19] MEDS: Normal Saline Flush 10 ML SYR IVP ×5 (02:56→20:28)
[2024-11-19] MEDS: ACETAMINOPHEN 1,000 MG/100 ML BAG 400 MG IVPB ×3 (05:32→18:00)
--- NOTE | 2024-11-19 07:00 | DI.RAD_ITS ---
Exam(s) XR ABDOMEN FLAT UPRIGHT EXAM: 2D digital imaging was performed. CLINICAL HISTORY: follow ileus. COMPARISON: CT CT ABDOMEN PELVIS W from 11/17/2024 CR,XR XR ABDOMEN FLAT PLATE from 11/18/2024 CR,XR XR ABDOMEN FLAT UPRIGHT from 11/18/2024 TECHNIQUE: Supine and uprightSupine and Lateral views of the abdomen were performed. FINDINGS: BOWEL GAS PATTERN: A nasogastric tube is position within the stomach. Similar dilatation of small bowel with air-fluid levels. Small amount of contrast is visible in the colon in and right-sided small bowel. CALCIFICATIONS: Bladder calculi OSSEOUS STRUCTURES: Normal for age. Visualized portions of chest: Mild basilar atelectasis. Soft tissues: Unremarkable midline skin ree. IMPRESSION: 1. No significant change in appearance of small bowel dilatation. 2. No free air. DATA REPOSITORY: RADIATION DOSE DELIVERED:
[2024-11-19 08:00] VITALS: BP 117/66; PULSE 90; RESP 16; TEMP 36.2; O2SAT 98
--- NOTE | 2024-11-19 08:34 | CMPROGNOTE_ITS ---
Date of service: 11/19/24 Time of Service: 08:34 Care Management Progress Note Progress Note Text Progress Note Text: Martin was sitting in a recliner when CM met with him, he is accompanied by his s/o Bassam. He is s/p hemicolectomy on 11/11/24, initially admitted for routine post surgical management and is now being closely monitored and treated for post-op obstruction vs illeus and pain management. He currently has an NGT tube in place and is receiving IV tylenol and q2h dilaudid prn for pain. Repeat x- rays planned for today. Discharge plan is still presumed to be home with HH PT vs no services based on progress towards goals. Bassam would like to know if patients insurance would qualify for a lift chair? CM is unsure but will explore medical necessity and insurance coverage. Discharge Potential Discharge Needs: PCP F/U Appt Anticipated Barriers to Discharge: None Identified Patient/Family Education Needs: Review discharge instructions, discuss Ask Me Three Transportation: Private vehicle Plan: Anticipate Martin will discharge home via private vehicle with family once m edically cleared. Patient will follow up with community providers and continue per the discharge plan of care when established. CM will continue to follow and assess for discharge needs. Social Determinants of Health Screening Will the Patient Participate in the Screening?: Declined to provide
[2024-11-19] MEDS: Pantoprazole 40 MG VIAL IVP ×2 (09:02→20:28)
[2024-11-19] MEDS: glipiZIDE 5 MG TAB PO (09:03)
[2024-11-19] MEDS: Simethicone 80 MG CHEW 40 MG PO ×2 (09:03→21:07)
[2024-11-19] MEDS: Multivitamin TAB 1 TAB PO (09:03)
[2024-11-19] MEDS: Sucralfate 1 GM TAB PO ×2 (09:03→21:07)
--- NOTE | 2024-11-19 09:42 | PT.INTREAT ---
PT Notes Visit Reasons: Tubulovillous adenoma Inpatient Physical Therapy Treatment Note [facility] Date: 11/19/24 PRECAUTIONS:Standard no gait belt on lower abdominal region due to incision OBJECTIVE: ? Therapeutic Activities (90379n[1]): Direct one-on-one instruction in dynamic activities to improve functional performance. ? Therapeutic Exercises ([id number][]): Direct one-on-one instruction in therapeutic exercises to develop strength, endurance, range of motion and flexibility. ? Exercises ? Too tired. Ambulation ? Assistive Device: FWW? Weight bearing: Full Assist: CGA to SBA ? Distance:? 325? ASSESSMENT:? Pt was motivated to ambulate but fatigued post session. PLAN: Cont as per PT POC. TREATMENT CODE/TIME: 9:30-9:42 (12) TA DISCHARGE RECOMMENDATION:
[2024-11-19 10:21] LABS: Anion Gap 10.4 mmol/L (3-11); BUN 21 mg/dL (7-18); CO2 26.6 mmol/L (21.0-32.0); Calcium 8.3 mg/dL (8.5-10.1); Chloride 106 mmol/L (98-107); Estimated GFR 79.97 (mL/min/1.73m2); Glucose 114 mg/dL (74-106); Magnesium 2.1 mg/dL (1.8-2.4); Potassium 3.8 mmol/L (3.5-5.1); Sodium 143 mmol/L (136-145)
--- NOTE | 2024-11-19 13:51 | CHAPLAIN ---
I stopped in to see Martin this morning, but he said he wasn't up for a visit. He has an NG tube. Original plan was for him to discharge on Monday, four days ago. He's dealing with complications following laproscopic surgery earlier last week. His SO, Bassam, is here often and very supportive.
--- NOTE | 2024-11-19 14:44 | PT.INTREAT ---
PT Notes Visit Reasons: Tubulovillous adenoma Inpatient Physical Therapy Treatment Note [facility] Date: 11/19/24 SUBJECTIVE: Martin states that he is doing well. Offers no complaints to me today. questioning if insurance would cover some sort of lift chair. I did direct her to home health aide caregiver. OBJECTIVE: []? VITALS: ?[facility] [facility] [place] Therapeutic Activities (39029h5): Direct one-on-one instruction in dynamic activities to improve functional performance. ? BED MOBILITY/TRANSFERS? seated in recliner? Sit-stand: S? Stand-sit:S ? Provided skilled cues and instruction on performance and technique throughout. ? GAIT? Assistive Device: FWW ? Weight bearing: full Assist: SBA? Distance:?approx 325' and approx 25' without an assistive device. ? Deviation: short stride length.? STAIRS: ascend/descend 2, 6 steps and 3, 4 steps 5 trials. Using B rails and SBA. reciprocal gait ? ASSESSMENT:? independent with transfers. No LOB or SOB during ambulation or stair training. Needs to work on ambulation without an assistive device. PLAN:continue improving functional mobility to tolerance following PT POC. TREATMENT CODE/TIME: 25 min. [id number] DISCHARGE RECOMMENDATION: home with PT
--- NOTE | 2024-11-19 14:53 | PGE_ITS ---
Date of Service Date of service: 11/19/24 Time of Service: 14:53 Assessment and Plan Assessment and plan (1) Status post right hemicolectomy: Status: Acute Assessment and plan: It is disappointing that the nasogastric tube decompression has not impacted his discomfort much. His x-ray today shows ongoing dilation of the small bowel, although there is clearly some contrast in the descending colon, which is reassuring. Overwhelmingly, his labs remain normal. I reviewed Martin's x-rays with him and his today, and while his pain is still problematic and discouraging, his vital signs, labs, and all other metrics seem mostly reassuring. I think this still lends itself more towards ileus as opposed to obstruction, although that still within the differential. Obviously, the progression of contrast to the descending colon would argue against complete bowel obstruction. With the improvement of his kidney function, I think it is fine to resume some nonsteroidal anti-inflammatories as was suggested by his . We can also try lidocaine patch, and since some of the features of his pain seem a little bit spastic, I will try some Skelaxin to see if that makes any difference. I will trend the nasogastric tube output overnight. I am inclined to try a clamp trial tomorrow in an effort to get the tube out since it has not really made much clinical difference and he is stooling. Subjective Subjective Interval history since last seen: Martin continues to have abdominal pain that has not been impacted much with the addition of medications. He denies any nausea or vomiting since insertion of the nasogastric tube yesterday, although he is also a little disappointed that it has not improved his discomfort. He had another bowel movement today. Exam GI Other: His abdomen is soft, and he still has tenderness on the right side. He has no more distended than previous, and he does still have some bowel sounds Objective Last Vital Signs Temp 97.2 F L 11/19/24 08:00 Pulse 90 11/19/24 08:00 Resp 16 11/19/24 08:00 BP 117/66 11/19/24 08:00 Pulse Ox 98 11/19/24 08:00 Laboratory Results - last 24 hr 11/18/24 11/19/24 18:25 09:35 WBC 9.89 RBC 3.03 L Hgb 8.7 L Hct 27.1 L MCV 89 MCH 28.7 MCHC 32.1 RDW 14.9 H Plt Count 295 D MPV 10.1 Sodium 144 143 Potassium 3.8 3.8 Chloride 107 106 Carbon Dioxide 29.2 26.6 Anion Gap 7.8 10.4 BUN 23 H 21 H Creatinine 1.0 1.0 Est GFR (CKD-EPI 2020) 79.97 79.97 Glucose 116 H 114 H Calcium 8.6 8.3 L Phosphorus 3.7 4.3 Magnesium 2.0 2.1 Total Bilirubin 0.6 AST 69 H ALT 81 H Alkaline Phosphatase 136 H C-Reactive Protein 3.16 H Total Protein 6.2 L Albumin 2.7 L Time Spent with Patient Time Spent with Patient: >50 minutes Time was spent: preparing to see the patient(eg.review tests), ordering medications,tests, procedures, referring, communicating with other health client care specialist, indepentently interpreting results, counseling the patient and care coordination
[2024-11-19] MEDS: Ketorolac 15 MG/ML VIAL IVP ×2 (15:22→20:28)
[2024-11-19] MEDS: Lidocaine 5% Patch 1 PATCH TP (15:23)
[2024-11-19] MEDS: Lactated Ringers 1,000 ML 100 ML IV (15:58)
[2024-11-19 19:55] VITALS: BP 109/49; PULSE 63; RESP 18; TEMP 36.8; O2SAT 95
[2024-11-19] MEDS: Simvastatin 20 MG TAB PO (20:28)
[2024-11-19] MEDS: Insulin Glargine 300 UNITS/3 ML PEN 15 UNITS SC (23:33)
[2024-11-20] MEDS: Lactated Ringers 1,000 ML 100 ML IV ×2 (02:21→15:49)
[2024-11-20] MEDS: Ketorolac 15 MG/ML VIAL IVP ×4 (02:24→20:33)
[2024-11-20] MEDS: ACETAMINOPHEN 1,000 MG/100 ML BAG 400 MG IVPB ×4 (05:55→23:13)
--- NOTE | 2024-11-20 06:22 | W.NUTRFU ---
Date of service: 11/20/24 Time of Service: 06:22 Nutrition Note NOTE: Assessment follow up Mr Navas underwent abdominal surgery on 11/11. Due to slow progress and current ileus, he has been npo status or clear liquids over his 8-day admission. This in addition to any possible altered intake in the days prior to surgery. Per weight documentation history To has lost 5.5kg over a 6 week period - a 4.7% loss of body weight (1.7% loss from 11/12-11/20) 15u basal insulin started 11/15 with improvement in FPG (183, 116, 114 last 3 days). Fingersticks have generally been under 140. Continues on his home glipizide. Pt stooling - liquid black colored stool noted today by nursing. Total protein and albumin labs trending lower today with improved CRP lab - makes it more possible that this has a component of inadequate protein status vs inflammation Electrolytes wnl. NFPE not performed today, however patient meets diagnostic criteria according to AAIM indicators of % wt loss and length of inadequate intake of energy. Nutrition Dx: Moderate (non-severe) malnutrition (E44.0) in the context of acute injury/illness, related to medically-necessary prolonged NPO and/or clear liquid status, as evidenced by 1-2% loss of body weight x 1week and meeting less than 75% of estimated energy intake for >7 days. Intervention: would highly recommend consideration of artificial nutrition support to help offset the above deterioration in nutritional status if NPO status to remains the rest of today. Hopefully this patients medical situation improves soon, but this would be the best plan of action to consider with patient's input. Monitoring: will monitor diet status, intake, weight, nutrition-related labs and remain available for consult on TPN orders should this be the route decided upon. Time Spent in Nutritional Counseling and Treatment: 0
[2024-11-20 06:53] LABS: HCT 28.4 % (40.0-50.0); HGB 8.8 g/dL (13.5-17.5); MCH 27.9 pg (27.0-33.0); MCHC 31.0 % (32.0-36.0); MCV 90 fL (80-95); MPV 9.9 fL (8.0-11.0); Platelet Count 372 10^3/uL (130-400); RBC 3.15 10^6/uL (4.36-5.78); RDW 15.6 % (11.8-14.1); RDW-SD 49.5 fL; WBC 10.56 10^3/uL (4.4-10.8)
[2024-11-20 07:14] LABS: ALT 47 U/L (16-63); AST 27 U/L (15-37); Albumin 2.2 g/dL (3.4-5.0); Alkaline Phosphatase 99 U/L (46-116); Anion Gap 8.1 mmol/L (3-11); BUN 24 mg/dL (7-18); Bilirubin, Total 0.5 mg/dL (0.2-1.0); CO2 26.9 mmol/L (21.0-32.0); Calcium 8.7 mg/dL (8.5-10.1); Chloride 108 mmol/L (98-107); Estimated GFR 64.25 (mL/min/1.73m2); Glucose 104 mg/dL (74-106); Potassium 3.7 mmol/L (3.5-5.1); Sodium 143 mmol/L (136-145); Total Protein 5.9 g/dL (6.4-8.2)
[2024-11-20 07:15] LABS: ALT 49 U/L (16-63); AST 26 U/L (15-37); Albumin 2.2 g/dL (3.4-5.0); Alkaline Phosphatase 100 U/L (46-116); Bilirubin, Direct 0.2 mg/dL (0.0-0.2); Bilirubin, Total 0.5 mg/dL (0.2-1.0); Total Protein 5.9 g/dL (6.4-8.2)
[2024-11-20] MEDS: Simethicone 80 MG CHEW 40 MG PO ×3 (08:04→23:13)
[2024-11-20] MEDS: Sucralfate 1 GM TAB PO ×4 (08:05→23:14)
[2024-11-20] MEDS: Multivitamin TAB 1 TAB PO (08:05)
[2024-11-20] MEDS: glipiZIDE 5 MG TAB PO (08:05)
[2024-11-20] MEDS: Pantoprazole 40 MG VIAL IVP ×2 (08:05→20:31)
--- NOTE | 2024-11-20 08:05 | CMPROGNOTE_ITS ---
Date of service: 11/20/24 Time of Service: 08:05 Care Management Progress Note Progress Note Text Progress Note Text: Martin was awake and sitting in a recliner when CM met with him. He reports feeling somewhat better today, reporting decreased abdominal pain and increased passage of gas. He is hopeful that his NGT will be removed this afternoon and expresses eagerness to continue progressing towards discharge. To follow up on patients question about a lift chair for home, after CM review it appears neither Medicare or [place] will cover a lift chair for short- term use or post-surgical weakness. If patient and his partner still wish to obtain a lift chair, CM advised that they may be purchased through furniture stores and are also frequently available through online market places at reduced costs. CM will continue to follow Discharge Potential Discharge Needs: PCP F/U Appt Anticipated Barriers to Discharge: None Identified Patient/Family Education Needs: Review discharge instructions, discuss Ask Me Three Transportation: Private vehicle Plan: Anticipate, Martin will discharge home via private vehicle with family once medically cleared. New [facility] RN/PT services are recommended on discharge. Patient will follow up with community providers and continue per the discharge plan of care. CM will continue to follow and assess for discharge needs. Social Determinants of Health Screening Will the Patient Participate in the Screening?: Declined to provide
[2024-11-20] MEDS: Normal Saline Flush 10 ML SYR IVP ×2 (08:06→20:33)
[2024-11-20] MEDS: Heparin 5,000 UNITS/ML VIAL 5000 UNITS SC ×2 (08:06→20:33)
[2024-11-20 08:32] VITALS: BP 189/91; PULSE 66; RESP 16; TEMP 37; O2SAT 97
--- NOTE | 2024-11-20 08:33 | PGE_ITS ---
<Statement entered by Abena Paez MD - 11/22/24 16:20> seen by Dr Coles see his note for details Date of Service Date of service: 11/20/24 Time of Service: 08:33 Assessment and Plan Assessment and plan (1) Status post right hemicolectomy: Status: Acute Assessment and plan: Martin looks well this morning, sitting in the recliner chair. He appears comfortable and relaxed. Will proceed with NG clamp trial this morning and await reports on residuals to determine if okay to dc NG tube. Encouraged him to continue with PT So far things are going well with the medication adjustments made yesterday with adding lidocaine patches, Toradol and Skelaxin Subjective Subjective Interval history since last seen: Arrive with Martin sitting comfortably in the recliner chair. He is eager to keep moving towards d/c. He describes that working with PT is adding to his confidence about being about to d/c home without any concerns about mobility and transfers within his home. Exam Const General: cooperative, healthy appearing and comfortable Resp Effort & Inspection: normal respiratory effort, no audible wheezes and no cough Objective Last Vital Signs Temp 36.8 C 11/19/24 19:55 Pulse 63 11/19/24 19:55 Resp 18 11/19/24 19:55 BP 109/49 L 11/19/24 19:55 Pulse Ox 95 11/19/24 19:55 Laboratory Results - last 24 hr 11/19/24 11/20/24 11/20/24 09:35 06:08 06:08 WBC 10.56 RBC 3.15 L Hgb 8.8 L Hct 28.4 L MCV 90 MCH 27.9 MCHC 31.0 L RDW 15.6 H Plt Count 372 MPV 9.9 Sodium 143 143 Potassium 3.8 3.7 Chloride 106 108 H Carbon Dioxide 26.6 26.9 Anion Gap 10.4 8.1 BUN 21 H 24 H Creatinine 1.0 1.2 Est GFR (CKD-EPI 2020) 79.97 64.25 Glucose 114 H 104 Calcium 8.3 L 8.7 Phosphorus 4.3 Magnesium 2.1 Total Bilirubin 0.5 0.5 Conjugated Bilirubin 0.2 AST 26 ALT Alkaline Phosphatase Total Protein Albumin 11/20/24 11/20/24 11/20/24 06:08 06:08 06:08 WBC RBC Hgb Hct MCV MCH MCHC RDW Plt Count MPV Sodium Potassium Chloride Carbon Dioxide Anion Gap BUN Creatinine Est GFR (CKD-EPI 2020) Glucose Calcium Phosphorus Magnesium Total Bilirubin Conjugated Bilirubin AST 27 ALT 49 47 Alkaline Phosphatase 100 99 Total Protein 5.9 L Albumin 11/20/24 11/20/24 06:08 06:08 WBC RBC Hgb Hct MCV MCH MCHC RDW Plt Count MPV Sodium Potassium Chloride Carbon Dioxide Anion Gap BUN Creatinine Est GFR (CKD-EPI 2020) Glucose Calcium Phosphorus Magnesium Total Bilirubin Conjugated Bilirubin AST ALT Alkaline Phosphatase Total Protein 5.9 L Albumin 2.2 L 2.2 L Time Spent with Patient Time Spent with Patient: <25 minutes Time was spent: other (seen by dr coles, see his note for details. )
--- NOTE | 2024-11-20 12:27 | PT.INTREAT ---
PT Notes Visit Reasons: Tubulovillous adenoma Inpatient Physical Therapy Treatment Note [facility] Date: 11/20/24 SUBJECTIVE: Martin reports he is hopeful he can get rid of the NG tube and have a shower OBJECTIVE: Patient presented reclined in chair with NG tube in place but not connected to drainage ;IV infusing. present? VITALS: ?monitored by nsg. Therapeutic Activities (72948x8): Direct one-on-one instruction in dynamic activities to improve functional performance. ? BED MOBILITY/TRANSFERS? seated in recliner? Sit-stand: S various surface heights including toilet, shower bench, recliner and bed? Stand-sit:S ? various surface heights including toilet, shower bench recliner and bed? Provided skilled cues and instruction on performance and technique throughout. ? GAIT? Assistive Device: FWW ? Weight bearing: full Assist: SBA? Distance:?approx 325' total? Deviation: short stride length.? ASSESSMENT:? independent with transfers. No LOB or SOB during ambulation . Needs to work on ambulation without an assistive device. If not connected to IV hydration patient is able to safely ambulate and perform toilet transfers within room independently PLAN:continue improving functional mobility to tolerance following PT POC. TREATMENT CODE/TIME: 61758/0910?0936 DISCHARGE RECOMMENDATION: home with PT
--- NOTE | 2024-11-20 18:30 | W.PM.PROGNOT ---
Date of Service Date of service: 11/20/24 Time of Service: 18:31 Assessment and Plan Assessment and plan (1) Status post right hemicolectomy: Status: Acute Assessment and plan: Martin did well with a nasogastric tube clamp trial today, he tolerated it with no symptoms, and drained only a small amount in the hour when it was returned to suction. I did go ahead and remove the nasogastric tube. will give him some sips of liquids today, and hopefully will tolerate that we can advance the diet within the next day. although he technically meets the criteria for mild protein calorie malnutrition at this point, I am optimistic that we can get him back on a regular diet without the need for supplemental TPN. Subjective Subjective Interval history since last seen: Martin looks much better this morning. He was able to sleep through the night, and his abdominal pain remains much better controlled compared to previously. His appetite is increased a little bit. Exam GI Other: His abdomen is soft, not distended. Again, he has some hypoactive bowel sounds. I removed the ana dressing yesterday, and the incision looks fine today. There are no signs of infection. Objective Last Vital Signs Temp 98.6 F 11/20/24 08:32 Pulse 66 11/20/24 08:32 Resp 16 11/20/24 08:32 BP 189/91 H 11/20/24 08:32 Pulse Ox 97 11/20/24 08:32 Laboratory Results - last 24 hr 11/20/24 11/20/24 11/20/24 06:08 06:08 06:08 WBC 10.56 RBC 3.15 L Hgb 8.8 L Hct 28.4 L MCV 90 MCH 27.9 MCHC 31.0 L RDW 15.6 H Plt Count 372 MPV 9.9 Sodium 143 Potassium 3.7 Chloride 108 H Carbon Dioxide 26.9 Anion Gap 8.1 BUN 24 H Creatinine 1.2 Est GFR (CKD-EPI 2020) 64.25 Glucose 104 Calcium 8.7 Total Bilirubin 0.5 0.5 Conjugated Bilirubin 0.2 AST 26 27 ALT 49 Alkaline Phosphatase Total Protein Albumin 11/20/24 11/20/24 11/20/24 06:08 06:08 06:08 WBC RBC Hgb Hct MCV MCH MCHC RDW Plt Count MPV Sodium Potassium Chloride Carbon Dioxide Anion Gap BUN Creatinine Est GFR (CKD-EPI 2020) Glucose Calcium Total Bilirubin Conjugated Bilirubin AST ALT 47 Alkaline Phosphatase 100 99 Total Protein 5.9 L 5.9 L Albumin 2.2 L 11/20/24 06:08 WBC RBC Hgb Hct MCV MCH MCHC RDW Plt Count MPV Sodium Potassium Chloride Carbon Dioxide Anion Gap BUN Creatinine Est GFR (CKD-EPI 2020) Glucose Calcium Total Bilirubin Conjugated Bilirubin AST ALT Alkaline Phosphatase Total Protein Albumin 2.2 L Time Spent with Patient Time Spent with Patient: 25-34 minutes Time was spent: preparing to see the patient(eg.review tests), ordering medications,tests, procedures, referring, communicating with other health career coordinator, indepentently interpreting results and counseling the patient
[2024-11-20 20:15] VITALS: BP 122/55; PULSE 87; RESP 18; TEMP 36.1; O2SAT 99
[2024-11-20] MEDS: Simvastatin 20 MG TAB PO (20:32)
[2024-11-20] MEDS: Lidocaine 5% Patch 1 PATCH TP (23:37)
[2024-11-21] MEDS: Lactated Ringers 1,000 ML 100 ML IV (02:41)
[2024-11-21] MEDS: Ketorolac 15 MG/ML VIAL IVP ×4 (02:54→21:24)
[2024-11-21] MEDS: ACETAMINOPHEN 1,000 MG/100 ML BAG 400 MG IVPB (06:01)
[2024-11-21] MEDS: Pantoprazole 40 MG VIAL IVP (07:49)
[2024-11-21 07:52] VITALS: BP 109/50; PULSE 82; RESP 16; TEMP 37.1; O2SAT 99
[2024-11-21] MEDS: Sucralfate 1 GM TAB PO ×4 (07:54→21:24)
[2024-11-21] MEDS: Multivitamin TAB 1 TAB PO (07:54)
[2024-11-21] MEDS: Simethicone 80 MG CHEW 40 MG PO ×4 (07:54→21:24)
[2024-11-21] MEDS: Heparin 5,000 UNITS/ML VIAL 5000 UNITS SC ×2 (08:31→19:44)
[2024-11-21] MEDS: glipiZIDE 5 MG TAB PO (08:32)
--- NOTE | 2024-11-21 08:33 | PTTR_ITS ---
PT Notes Visit Reasons: Tubulovillous adenoma Date: 11/21/2024 PRECAUTIONS: Standard no gait belt on lower abdominal region due to incision SUBJECTIVE: Pt reports feeling much better, full of energy, just got done with breakfast. agreed to participating with therapy session. OBJECTIVE: ? comfortable in recliner, hads just finied with breakfast, no NGT and IV line? PAIN: 3/10 incision site VITALS: closely monitored by nursing Therapeutic Activities 82241: Direct one-on-one instruction in dynamic activities to improve functional performance. ?? BED MOBILITY/TRANSFERS? Sit-stand: ?independent ? Stand-sit: ??independent ? Bed-Chair:? independent? Chair-bed: independent Provided skilled cues and instruction on performance and technique throughout. Gait Training 11398: Direct one-on-one instruction and skilled instruction in: Employing an assistive device Movement sequencing Provided verbal cues for equipment management and technique Patient education regarding pacing and breathing techniques to maximize activity tolerance? GAIT? Assistive Device: with FWW on first, no AD on second ? Weight bearing: FWB Assist: ?Supervision? Distance:?? 300' with FWW, 300 without AD ? Deviation: ?Unremakable? STAIRS:? ?ascend/descend 2, 6 steps and 3, 4 steps 5 trials. Using B rails, Supervision. reciprocal gait ? ASSESSMENT:? pt tolerated activity well, no SOB or fatigue after during am session. PLAN: Continue with balance training, global strengthening and general conditi oning for improved safety, mobility and activity tolerance until pt is ready for DC. TREATMENT CODE/TIME: 69801i3 [id number] 25mins (8:10-8:35am)
--- NOTE | 2024-11-21 08:49 | CMPROGNOTE_ITS ---
Date of service: 11/21/24 Time of Service: 08:49 Care Management Progress Note Progress Note Text Progress Note Text: Martin was sitting in a recliner when CM met with him. He had the NGT removed yesterday, his diet is being advanced as tolerated and he states that hes feeling much better today. He has been up and walking with PT and remains eager to discharge home. Per report, the surgeon is optimistic he may be ready for discharge in the next day or so. New [facility] PT is recommend, add RN services if indicated. CM will continue to follow. Discharge Potential Discharge Needs: PCP F/U Appt Anticipated Barriers to Discharge: None Identified Patient/Family Education Needs: Review discharge instructions, discuss Ask Me Three Transportation: Private vehicle Plan: Martin will discharge home via private vehicle with family once medically cleared. New [facility] RN/PT services are recommended on discharge. Patient will follow up with community providers and continue per the discharge plan of care. CM will continue to follow and assess for discharge needs. Social Determinants of Health Screening Will the Patient Participate in the Screening?: Declined to provide
[2024-11-21] MEDS: Normal Saline Flush 10 ML SYR IVP ×3 (09:42→21:24)
[2024-11-21] MEDS: Lidocaine Patch Removal 1 EACH TP (10:25)
--- NOTE | 2024-11-21 16:25 | PGE_ITS ---
Date of Service Date of service: 11/21/24 Time of Service: 16:25 Assessment and Plan Assessment and plan (1) Status post right hemicolectomy: Status: Acute Assessment and plan: I am optimistic that Martin's ileus is resolved, and am glad that his symptoms continue to improve overall. I have switched him over from both of his intravenous medications to an oral regimen through today, will see how he tolerates diet. I have also adjusted his long-acting insulin, as well as his correction therapy at mealtimes. Assuming he keeps up with the nutrition, and we can stabilize his diabetic regimen, then I am optimistic we will be able to get him discharged in the next day or so. Incidentally, I was able to get Martin's pathology report. 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 I provided a little bit of literature regarding typical approaches to colorectal cancers. Subjective Subjective Interval history since last seen: Martin continues to improve through this afternoon. He tolerated breakfast, and some soft bite-size lunch without any nausea or vomiting. He had a slightly more formed bowel movement, and is passing quite a bit of flatus. Exam GI Other: Abdomen is soft, not distended. Incision feels good. There is no hernia. There are no signs of infection. Objective Last Vital Signs Temp 98.8 F 11/21/24 07:52 Pulse 82 11/21/24 07:52 Resp 16 11/21/24 07:52 BP 109/50 L 11/21/24 07:52 Pulse Ox 99 11/21/24 07:52 Time Spent with Patient Time Spent with Patient: 35-49 minutes Time was spent: preparing to see the patient(eg.review tests), referring, communicating with other health ambulatory care nurse, indepentently interpreting results and counseling the patient
--- NOTE | 2024-11-21 18:02 | CHAPLAIN ---
Martin was in the recliner today when I visited. He said he's feeling better and has been up walking around with PT. He started advancing from clear liquids to real food today and is hoping to be discharged possibly as early as tomorrow, but is waiting to hear what Dr. Rapp says. He talked about what this experience has been like for him, as he's not had major surgery before. Martin has had visitors and has been supported by his SO, Bassam.
[2024-11-21 19:45] VITALS: BP 119/56; PULSE 97; RESP 18; TEMP 37.7; O2SAT 97
[2024-11-21] MEDS: Lidocaine 5% Patch 1 PATCH TP (19:48)
[2024-11-21] MEDS: Insulin Glargine 300 UNITS/3 ML PEN 7 UNITS SC (19:49)
[2024-11-21] MEDS: Simvastatin 20 MG TAB PO (19:49)
[2024-11-21 23:45] VITALS: TEMP 37.5
[2024-11-22] MEDS: Ketorolac 15 MG/ML VIAL IVP ×2 (04:12→10:14)
[2024-11-22] MEDS: Normal Saline Flush 10 ML SYR IVP ×2 (04:12→08:52)
[2024-11-22 07:17] VITALS: BP 117/55; PULSE 81; RESP 17; TEMP 36.4; O2SAT 97
--- NOTE | 2024-11-22 08:32 | PT.INTREAT ---
PT Notes Visit Reasons: Tubulovillous adenoma Date: 11/22/2024 PRECAUTIONS: Standard no gait belt on lower abdominal region due to incision SUBJECTIVE: Pt reports in recliner finishing breakfast, participated with therapy after finishing breakfast despite feeling depressed today due to recent update about his colon. OBJECTIVE: ? PAIN: 3/10 incision site VITALS: closely monitored by nursing Therapeutic Activities 09026: Direct one-on-one instruction in dynamic activities to improve functional performance. ?? BED MOBILITY/TRANSFERS? Sit-stand: ?independent ? Stand-sit: ??independent ? Bed-Chair:? independent? Chair-bed: independent Provided skilled cues and instruction on performance and technique throughout. Gait Training 00447: Direct one-on-one instruction and skilled instruction in: Employing an assistive device Movement sequencing Provided verbal cues for equipment management and technique Patient education regarding pacing and breathing techniques to maximize activity tolerance? GAIT? Assistive Device: no AD on second ? Weight bearing: FWB Assist: ?Supervision? Distance:?300 without AD ? Deviation: ?Unremakable? STAIRS:? ?ascend/descend 2, 6 steps and 3, 4 steps 5 trials. Using B rails, Supervision. reciprocal gait ? ASSESSMENT:? pt tolerated activity well, no SOB or fatigue after during am session. PLAN: Continue with balance training, global strengthening and general conditioning for improved safety, mobility and activity tolerance until pt is ready for DC. TREATMENT CODE/TIME: [id number] [id number] 25mins (8:10-8:35am)
[2024-11-22] MEDS: Simethicone 80 MG CHEW 40 MG PO ×2 (08:50→16:04)
[2024-11-22] MEDS: Multivitamin TAB 1 TAB PO (08:50)
[2024-11-22] MEDS: glipiZIDE 5 MG TAB PO (08:50)
[2024-11-22] MEDS: Pantoprazole 40 MG TABCR PO (08:51)
[2024-11-22] MEDS: Sucralfate 1 GM TAB PO ×2 (08:51→16:03)
[2024-11-22] MEDS: Lidocaine Patch Removal 1 EACH TP (08:52)
[2024-11-22] MEDS: Heparin 5,000 UNITS/ML VIAL 5000 UNITS SC (08:52)
--- NOTE | 2024-11-22 13:50 | PT.INTREAT ---
PT Notes Visit Reasons: Tubulovillous adenoma Inpatient Physical Therapy Treatment Note [facility] Date: 11/22/2024 PRECAUTIONS: Standard. Hemicolectomy surgical incision, caution against use of gait belt in lower abdominal area. Activity as tolerated. SUBJECTIVE: Confident now about walking without an assistive device in the hallway. Looking forward to going home as soon as it is safe. OBJECTIVE: General Observation: Seated on bedside recliner. Bassam present in room. Hemicolectomy incision covered with dressing. ? PAIN: 2-3/10 abdomen at rest in R abdominal area, 6/10 with walking VITALS: closely monitored by nursing staff BED MOBILITY/TRANSFERS: ? Independent GAIT: Independent for up to 1000 feet without AD. Stairs: Independent ASSESSMENT:? Patient discontinued from services today independent with all mobility ADLs. PLAN: Patient discontinued from services today independent with all mobility ADLs. DISCHARGE RECOMMENDATION: No services needed at home at this time. TREATMENT CODE/TIME: 24062 x 23 minutes for 2 units (13:50-14:13).
--- NOTE | 2024-11-22 13:52 | CMPROGNOTE_ITS ---
Date of service: 11/22/24 Time of Service: 14:01 Care Management Progress Note Progress Note Text Progress Note Text: Martin was visiting with his when CM arrived. Martin stated he has concerns to discuss with the surgical team; CM notified the surgical office, who saw him shortly thereafter. Martin is eager to get home. Martin shares his plan to shower today. Martin states he has a new cancer diagnosis and is looking into cancer centers that he feels are adequate. New [facility] PT is recommend, add RN services if indicated. CM will continue to follow. Discharge Potential Discharge Needs: PCP F/U Appt, Surgical F/U Appt and Other (likely Cancer clinic) Anticipated Barriers to Discharge: Medical Status Patient/Family Education Needs: Review discharge instructions, discuss Ask Me Three Transportation: Private vehicle Plan: Anticipate Martin will discharge home via private vehicle with family once medically cleared. New [facility] RN/PT services are recommended on discharge. Patient will follow up with community providers and continue per the discharge plan of care. CM will continue to follow and assess for discharge needs. Social Determinants of Health Screening Will the Patient Participate in the Screening?: Declined to provide
--- NOTE | 2024-11-22 14:23 | CHAPLAIN ---
Martin was visiting with his SO Bassam when I stopped in. Martin said he was frustrated because he had expected to see Dr. Rapp this morning and didn't. Dr. Rapp saw him late yesterday and told Martin about his cancer diagnosis, according to Martin, and then Dr. Rapp said he would be in this morning to have a conversation with Martin and Bassam. Martin's nurse was able to find out that Dr. Geronimo is covering for Dr. Rapp today and will see Martin after surgeries are completed. Martin was disappointed that he did not have a specific time as he's waiting to go home. Bassam looked up Dr. Rodarte on our website to know more about him since they had not met him before and there was no information about him. The site said information coming. I let Rachel Gray in Patient Experience know this was a concern for Martin and Bassam. They asked about speaking with Care Management and I let Sol know that Martin and Bassam wanted to speak with her. Sol also contacted the surgical office to see when Martin could expected a visit, and according to her notes, someone from surgery did come over to see Martin. Martin has been here more than a week and was expecting to be discharged a week ago, a few days after surgery, then ending up needing an NG tube and more care. He was told about the cancer result yesterday for the first time. The stress of not getting to see someone until later today, and not getting to see Dr. Rapp as planned has not helped Martin's healing, he explained. He was very happy with the care he's received from Dr. Rapp and the med/surg staff until today. I know Pool from outside the hospital, where they are very involved in community events in [place] and the area, especially music and arts events.
--- NOTE | 2024-11-22 15:43 | DSE_ITS ---
Date of service: 11/22/24 Time of Service: 15:43 DS: Diagnosis Discharge Diagnosis (1) Status post right hemicolectomy: Status: Acute Asessment and Plan: Discharge home with outpatient follow-up Discharge Plan Disposition Patient Disposition: Home Condition: Improving Discharge Details Reason For Visit: Tubulovillous adenoma Admit Date/Time: 11/12/24 16:58 Admit Provider: Damian Rapp Attending Provider: Damian Rapp Primary Care Provider: Yvonne Amos Hospital Course Hospital Course: Martin is 74 years old. He was diagnosed with a tubulovillous adenoma that was not amenable to colonoscopic resection. He underwent laparoscopic right hem icolectomy. His postoperative course was complicated by acute blood loss anemia that seem most consistent with acute stress gastritis. He was treated with proton pump inhibitor therapy and transfused 2 units packed red blood cells. His hemoglobin stabilized. He also had a postoperative ileus which slowly resolved with increased activity and adjustment of medications. He was discharged home outpatient follow-up in the office. Home Meds and New Rx's Prescriptions: New pantoprazole [Protonix] 40 mg tablet,delayed release (DR/EC) 40 mg PO DAILY Qty: 30 0RF metaxalone 800 mg tablet 800 mg PO TID Qty: 60 0RF Rx Instructions: Take 1 tablet by mouth every 8 hours [id number] for the days. Then use as needed. hydromorphone [Dilaudid] 2 mg tablet 2 mg PO Q8H PRNQty: 15 0RF Rx Instructions: Take 1 tablet by mouth up to every 8 hours if needed for severe pain lidocaine 4 % adhesive patch,medicated 1 patch topical DAILY PRNQty: 10 0RF Rx Instructions: Use as needed for pain glipizide 5 mg tablet 7.5 mg PO DAILY Qty: 60 0RF Rx Instructions: Take 1-1/2 tablets by mouth every day. 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 to 5 mg daily Continued losartan 25 MG tablet 25 mg PO HS simvastatin 20 MG tablet 20 mg PO DAILY turmeric root extract 300 mg capsule 300 mg PO DAILY multivitamin [Daily-Matias] 1 EACH tablet 1 ea PO DAILY Patient Comments: 10/27/16 temp on hold while pt on Cipro vitamin B complex 1 EACH capsule 1 ea PO DAILY Patient Comments: 10/27/16 temp on hold while pt on Cipro udppowul-niee-hkwwc-oreg-capry 100 mg-150 mg- 50 mg-150 mg capsule 1 cap PO DAILY Discontinued tadalafil [Cialis] 5 mg tablet 5 mg PO DAILY Qty: 90 3RF Patient Comments: 02/16/17 2.5MG DAILY Ozempic 1 mg/dose (4 mg/3 mL) pen injector 1 mg subcut QWEEK ondansetron HCl 8 mg tablet 8 mg PO Q12H Qty: 3 0RF metronidazole 500 mg tablet 500 mg PO .COMPLEX Qty: 8 0RF Rx Instructions: 500 mg orally Per bowel surgery instructions; bisacodyl [Dulcolax (bisacodyl)] 5 mg tablet,delayed release (DR/EC) 5 mg PO ONCE Qty: 8 0RF Rx Instructions: take per colonoscopy instructions polyethylene glycol 3350 17 gram/dose powder 238 g PO ONCE Qty: 238 0RF Rx Instructions: take per colonoscopy instructions neomycin 500 mg tablet 500 mg PO .COMPLEX Qty: 8 0RF Rx Instructions: 500 mg orally Per bowel surgery instructions; glipizide 5 mg tablet 5 mg PO DAILY Patient Comments: Ozempic was discontinued for colonoscopy and pending colon surgery. Blood sugar has become elevated so the glipizide is to control the blood sugar. acetaminophen 500 mg capsule 1,000 mg PO Q8H Discharge Instructions Additional Instructions: Martin, I hope you make a smooth and uneventful transition home. I know it has been a hard time, but you have been through quite a bit, and you are making great improvements over the past few days. As we talked about, expect to be quite tired as you get home. Try to exercise yourself a little more and more each day. Just a quick reminder of the few of the things that we talked about: With regards to your diet, stick with fork soft foods for the next 3 days or so. If you are tolerating that okay, then advance back to your regular diet as you see fit. Obviously, if anything causes cramping or discomfort, back off of it a little bit and give yourself a little more time to digest. As I mentioned, using protein shakes to help supplement your diet is a great strategy in the first few weeks of your recovery. With regards to your incision, it is fine to keep it clean and dry. You should wash it at least once per day with warm soapy water. If you feel more comfortable with bandages, that is fine to reapply them, but at this point, there is probably not much medical benefit. You are fine to put any type of cream or ointment on there if you find that more comfortable. Ice packs are also fine to use over the incisions if they provide relief. As I mentioned, I switched your glipizide from 5 mg daily to 7-1/2 daily. Keep track of your blood sugars. If you find that your sugars are dropping quite low, down into the 90s, then go back to [address] prescriptions for Dilaudid, metaxalone, and lidocaine patches. Use these in addition to Tylenol. It is fine to use a couple doses of ibuprofen as well if you find that helpful. The other new medication I added was Protonix, or pantoprazole. This is an antacid medication that you will take once daily. Will see how you are doing in the office, and adjust your medications if you need to. If you need anything, or have any questions at all, please feel free to call me at my cell phone at [phone], otherwise, I look forward to seeing you in the office. Activity:: Activity as Tolerated Equipment/Supplies:: No Equipment Needed Diet:: Fork soft, then advance as tolerated DS: Summary Time Spent with Patient providing and/or coordinating discharge services: Less than 30 minutes Status at Discharge Functional status at discharge: independent ambulation Overall status at discharge: patient is progressing back to baseline Mental Status: mental status grossly normal Speech and Movement: speech and movement normal Mood: congruent mood Affect: normal affect Exam Psych Mental Status: mental status grossly normal Speech and Movement: speech and movement normal Mood: congruent mood Affect: normal affect DS: Data Vitals/I&O Vitals and I&O: Vital Signs Temperature 97.5 F L 11/22/24 07:17 Temperature Source Temporal Artery Scan 11/22/24 07:17 Pulse 81 11/22/24 07:17 Pulse Rhythm Regular 11/12/24 09:38 Pulse 97 H 11/14/24 09:32 Respiratory Rate 17 11/22/24 07:17 Respiratory Depth Normal 11/12/24 09:38 Blood Pressure 117/55 L 11/22/24 07:17 Blood Pressure Mean 75 11/22/24 07:17 Pulse Oximetry 97 11/22/24 07:17 Respiratory End-tidal CO2 29 11/12/24 17:31 Oxygen Delivery Method Room Air 11/22/24 07:17 Oxygen Flow Rate 0 11/22/24 07:17 Pain Level 6 11/22/24 10:14 Comment PT sleeping refused vitals. 11/15/24 23:41 Intake & Output 11/21/24 11/22/24 11/22/24 23:59 11:59 23:59 Intake Total 250 / 2960 Balance 250 / 2960 Intake: Oral 250 / 1250 Other: Urine Color Yellow Yellow Stool Size Small Small Stool Characteristics Soft Soft Brown Brown PFSH All Active Problems (Updated 11/18/24 @ 10:40 by Abena Paez MD) Acute blood loss anemia (Acute) Ileus (Acute) Status post right hemicolectomy (Acute) Trigger finger, left index finger (Acute) s/p left index finger trigger release Steroid-induced hyperglycemia (Acute) Obesity, morbid, BMI 40.0-49.9 (Acute) GERD (gastroesophageal reflux disease) (Chronic) Lumbar back pain with radiculopathy affecting left lower extremity (Acute) Lumbar nerve root compression (Acute) Herniation of left side of L4-L5 intervertebral disc (Acute) Cholelithiasis (Acute) Fatty liver (Acute) Peripheral neuropathy (Chronic) Non-insulin treated type 2 diabetes mellitus (Chronic) Lumbar back pain (Acute) Fall (Acute) Contusion of chest (Acute) Abdominal contusion (Acute) Rotator cuff tear, right (Acute) Primary osteoarthritis of right knee (Acute) Impingement syndrome of right shoulder (Acute) Tendonitis of long head of biceps brachii of right shoulder (Acute) Gross hematuria (Acute 12/25/15) Hydronephrosis, left (Chronic 04/01/16) Left ureteral stone (Acute 12/25/15) Lower urinary tract symptoms (LUTS) (Acute 01/19/16) Left ureteral stone (Acute) Medical History (Updated 11/18/24 @ 10:40 by Abena Paez MD) Tubulovillous adenoma of colon Surgical History (Updated 11/20/24 @ 10:22 by Marti Mack) H/O right hemicolectomy (~11/12/24) Hx of colonoscopy with polypectomy (~09/2024) biopsies taken H/O cystoscopy Amputation of one or more toes Colonoscopy - IV Sedation (12/19/14) FLAVIO ROBERTO Family History (Updated 05/31/22 @ 19:17 by Ny Rodriguez MD) Maternal Grandfather Heart disease Mother Diabetes Maternal Aunt Diabetes Sister Cancer pancreatic cancer - smoker Social History (Updated 09/24/24 @ 07:48 by VENITA George) Smoking/Tobacco Use Status: Former Tobacco Use Quit Date: 03/20/79 Smoking risk assessment performed?: Yes Alcohol Intake: current Alcohol Intake frequency: a few times a week Alcohol type: beer Drug use: Never Substance use type: does not use Housing: house Current gender identity: male Do you feel safe at home: Yes Do you feel safe in your relationship?: Yes Time Spent with Patient Time Spent with Patient: 70-84 minutes4 Time was spent: preparing to see the patient(eg.review tests), ordering medications,tests, procedures, indepentently interpreting results, counseling the patient and care coordination
--- NOTE | 2024-11-22 15:43 | W.PM.PROGNOT ---
Date of Service Date of service: 11/22/24 Time of Service: 15:43 Objective Last Vital Signs Temp 97.5 F L 11/22/24 07:17 Pulse 81 11/22/24 07:17 Resp 17 11/22/24 07:17 BP 117/55 L 11/22/24 07:17 Pulse Ox 97 11/22/24 07:17
--- NOTE | 2024-11-22 16:12 | CMDISCH_ITS ---
Date of service: 11/22/24 Time of Service: 16:12 LACE Index Scoring Tool Questions: Length of Stay (in days): 7 - 13 (10) Was the patient admitted via the E.D.?: No Comorbidities: Diabetes w/o Complication E.D. Visits: 0 Answers: Total Score: 6 Risk of Readmission: Low Risk Care Management Discharge Plan Reason for Hospitalization: Tubulovillous adenoma Discharge Plan: Martin will discharge home via private vehicle with family once medically cleared. New [facility] RN/PT services are recommended on discharge. Patient will follow up with community providers and continue per the discharge plan of care. Patient/Family Education Needs: Review discharge instructions, activity, limitation, and plan of care. Discuss ask me three.
[2024-11-22] MEDS: Acetaminophen 325 MG TAB PO (17:02)
== END 2024-11-22 17:27 | disposition home or self-care (01) | DRG 329 ==
LOC: PDS 17:09 → MS 18:19 → SUR 11-14 07:44 → MS 11-14 14:08
PROVIDERS: Surgery; Admitting Provider Surgery; PCP Family Medicine; Responsible Provider Surgery; Visit Provider Surgery
PROC: 0DTF4ZG Resection of Right Large Intestine, Percutaneous Endoscopic Approach, Hand-Assisted (ICD-10-PCS; CPT 44204; principal; 2024-11-12 10:30)
DX: D62 Acute posthemorrhagic anemia; K21.9 Gastro-esophageal reflux disease without esophagitis; C18.0 Malignant neoplasm of cecum; K29.01 Acute gastritis with bleeding; L97.411 Non-pressure chronic ulcer of right heel and midfoot limited to breakdown of skin; N17.9 Acute kidney failure, unspecified; K91.89 Other postprocedural complications and disorders of digestive system; K56.7 Ileus, unspecified; E44.1 Mild protein-calorie malnutrition; M51.16 Intervertebral disc disorders with radiculopathy, lumbar region; K76.0 Fatty (change of) liver, not elsewhere classified; E11.42 Type 2 diabetes mellitus with diabetic polyneuropathy; M17.11 Unilateral primary osteoarthritis, right knee; G89.18 Other acute postprocedural pain; E11.621 Type 2 diabetes mellitus with foot ulcer; D72.829 Elevated white blood cell count, unspecified; R10.31 Right lower quadrant pain; Z79.85 Long-term (current) use of injectable non-insulin antidiabetic drugs; Z79.84 Long term (current) use of oral hypoglycemic drugs
CPT/HCPCS: 44204; 00123; 36415; 80048; 80053; 80076; 85027; 86850; 86900; 86901; 86920; 97116; 97161; 97530; J1650; 71045; 74018; 74019; 74177; 83735; 84100; 85018; 85025; 86140; 88307; 88309; 88361; J0131; J0666; J0690; J1100; J1171; J1644; J1815; J1885; J2371; J2405; J2470; J2543; J2704; J3010; J3475; J3490; P9016; Q9967

== ENCOUNTER → 2024-11-25 08:50 | Outpatient (BNVA) | payer MEDICARE, BC, SELFPAY | PROVIDERS: PCP Family Medicine; Referring Provider Family Medicine; Visit Provider Surgery | DX: L89.311 Pressure ulcer of right buttock, stage 1 (principal); L89.321 Pressure ulcer of left buttock, stage 1; Z48.02 Encounter for removal of sutures | CPT/HCPCS: 99212 ==

== ENCOUNTER → 2024-12-02 10:59 | Outpatient (BNVA) | payer MEDICARE, BC, SELFPAY | PROVIDERS: PCP Family Medicine; Referring Provider Family Medicine; Visit Provider Surgery | DX: L89.321 Pressure ulcer of left buttock, stage 1 (principal); L89.311 Pressure ulcer of right buttock, stage 1 | CPT/HCPCS: 99213 ==

== ENCOUNTER 2024-12-03 15:08 | Outpatient (REF) | payer MEDICARE, BC, SELFPAY ==
[2024-12-03 16:37] LABS: Abs Immature Grans 0.08 10^3/uL (0.0-0.06); HCT 27.1 % (40.0-50.0); HGB 8.1 g/dL (13.5-17.5); Immature Grans % 0.9 %; MCH 26.3 pg (27.0-33.0); MCHC 29.9 % (32.0-36.0); MCV 88 fL (80-95); MPV 9.5 fL (8.0-11.0); RBC 3.08 10^6/uL (4.36-5.78); RDW 16.0 % (11.8-14.1); RDW-SD 50.5 fL
[2024-12-03 16:55] LABS: Anisocytosis 1+
[2024-12-03 16:56] LABS: Hypochromasia 1+; WBC 8.64 10^3/uL (4.4-10.8)
[2024-12-03 16:59] LABS: Platelet Count 797 10^3/uL (130-400)
== END 2024-12-03 15:09 | disposition home or self-care (01) ==
LOC: NCHCN 15:08
PROVIDERS: PCP Family Medicine; Visit Provider Family Medicine
DX: K29.01 Acute gastritis with bleeding (principal)
CPT/HCPCS: 85025

== ENCOUNTER 2024-12-13 04:07 | Outpatient (CLI) | payer MEDICARE, BC, SELFPAY ==
--- NOTE | 2024-12-19 10:20 | W.NUTRFU ---
Date of service: 12/13/24 Time of Service: 12:00 Nutrition Note NOTE: Met with Martin and Bassam - looking to get some more info on diet and focus on iron and protein as he is still recovering from hemicolectomy surgery. We discussed increasing fiber and continueing to work on getting moving more as may be advised by provider. We reviewed high iron foods and limiting dairy to 3-4 servings per day (Currently tends to consume excessive dairy which will hinder his iron absorption), and trying to pair iron and vitamin c rich foods. we discussed strategies to increase lower kcal/low fat protein intake and consider scoop of whey and scoop of collagen per day to supplement. Emailed some resources for him to have at home as well as some sample menus They have my contact info and told to reach out with any questions or desire to follow up Time Spent in Nutritional Counseling and Treatment: 25 min
== END 2024-12-13 04:08 | disposition home or self-care (01) ==
LOC: DS 04:07
PROVIDERS: PCP Family Medicine; Visit Provider Dietitian, Registered
DX: E11.9 Type 2 diabetes mellitus without complications (principal)
CPT/HCPCS: 00123; 97802

== ENCOUNTER 2024-12-13 12:41 | Outpatient (CLI) | payer MEDICARE, BC, SELFPAY ==
[2024-12-13 13:29] LABS: Abs Immature Grans 0.04 10^3/uL (0.0-0.06); HCT 28.9 % (40.0-50.0); HGB 8.8 g/dL (13.5-17.5); Immature Grans % 0.5 %; MCH 25.1 pg (27.0-33.0); MCHC 30.4 % (32.0-36.0); MCV 83 fL (80-95); MPV 10.2 fL (8.0-11.0); Platelet Count 412 10^3/uL (130-400); RBC 3.50 10^6/uL (4.36-5.78); RDW 16.2 % (11.8-14.1); RDW-SD 48.6 fL; WBC 8.81 10^3/uL (4.4-10.8)
== END 2024-12-13 12:42 | disposition home or self-care (01) ==
LOC: LBO 12:42
PROVIDERS: PCP Family Medicine; Visit Provider Family Medicine
DX: D64.9 Anemia, unspecified (principal)
CPT/HCPCS: 36415; 97802; 85025

== ENCOUNTER → 2024-12-30 09:22 | Outpatient (BNVA) | payer MEDICARE, BC, SELFPAY | PROVIDERS: PCP Family Medicine; Referring Provider Family Medicine; Visit Provider Surgery | DX: Z48.815 Encounter for surgical aftercare following surgery on the digestive system (principal); C18.9 Malignant neoplasm of colon, unspecified | CPT/HCPCS: 99024 ==

== ENCOUNTER 2025-01-06 15:25 | Outpatient (REF) | payer MEDICARE, BC, SELFPAY ==
[2025-01-06 15:57] LABS: Abs Immature Grans 0.02 10^3/uL (0.0-0.06); HCT 33.7 % (40.0-50.0); HGB 9.9 g/dL (13.5-17.5); Immature Grans % 0.3 %; MCH 23.3 pg (27.0-33.0); MCHC 29.4 % (32.0-36.0); MCV 79 fL (80-95); MPV 10.6 fL (8.0-11.0); Platelet Count 275 10^3/uL (130-400); RBC 4.25 10^6/uL (4.36-5.78); RDW 16.9 % (11.8-14.1); RDW-SD 48.0 fL; WBC 6.40 10^3/uL (4.4-10.8)
== END 2025-01-06 15:26 | disposition home or self-care (01) ==
LOC: NCHCN 15:25
PROVIDERS: PCP Family Medicine; Visit Provider Family Medicine
DX: K29.01 Acute gastritis with bleeding (principal)
CPT/HCPCS: 85025

== ENCOUNTER → 2025-03-18 07:35 | Outpatient (CLI) | payer MEDICARE, BC, SELFPAY ==
[2025-03-18] MEDS: Barium Sulfate 2% W/V-Berry Smoothie 450 ML BTL 900 ML PO (07:41)
[2025-03-18 08:19] LABS: Abs Immature Grans 0.01 10^3/uL (0.0-0.06); HCT 40.4 % (40.0-50.0); HGB 12.7 g/dL (13.5-17.5); Immature Grans % 0.2 %; MCH 24.2 pg (27.0-33.0); MCHC 31.4 % (32.0-36.0); MCV 77 fL (80-95); MPV 10.2 fL (8.0-11.0); Platelet Count 212 10^3/uL (130-400); RBC 5.25 10^6/uL (4.36-5.78); RDW 17.2 % (11.8-14.1); RDW-SD 47.7 fL; WBC 6.47 10^3/uL (4.4-10.8)
[2025-03-18 08:30] LABS: ALT 23 U/L (10-49); AST 24 U/L (<34); Albumin 4.5 g/dL (3.2-5.0); Alkaline Phosphatase 92 U/L (46-116); Anion Gap 7.6 mmol/L (3-11); BUN 20 mg/dL (9-23); Bilirubin, Total 0.4 mg/dL (0.2-1.2); CO2 28.4 mmol/L (20.0-31.0); Calcium 9.1 mg/dL (8.3-10.6); Chloride 107 mmol/L (98-107); Glucose 97 mg/dL (74-106); Potassium 4.2 mmol/L (3.5-5.1); Sodium 143 mmol/L (136-145); Total Protein 7.5 g/dL (5.7-8.2)
[2025-03-18] MEDS: Omnipaque 350 MG/ML 100 ML BTL IJ (09:59)
[2025-03-18] MEDS: Normal Saline Flush 10 ML SYR IVP (10:00)
[2025-03-18] MEDS: Normal Saline - Diluent 50 ML VIAL IJ (10:00)
--- NOTE | 2025-03-18 10:00 | DI.CT_ITS ---
Exam(s) CT CHEST/ABD/PEL W EXAM: CT CHEST/ABD/PEL W CLINICAL HISTORY: COLON CANCER C18.2 S/P HEMICOLECTOMY RESTAGING. TECHNIQUE: Imaging Protocol: Axial computed tomography images with coronal and sagittal reformatted images were created and reviewed. Computer aided detection (CAD) was utilized. CONTRAST MATERIAL: Intravenous: Omnipaque 350 Contrast volume:100 ml Oral: 900 mL barium PO COMPARISON: CT CT CHEST/ABD/PEL W from 10/11/[address] ABDOMEN PELVIS W from 11/17/2024 FINDINGS: CHEST: Pulmonary parenchyma: No consolidation. No dominant measurable mass. Tracheobronchial tree: No bronchiectasis. No mucous plugging.No bronchial wall thickening. Pleura: No effusion or pneumothorax. Mediastinum: Within normal limits. Pulmonary arteries: No visible emboli. Cardiovascular: Mild dilatation of the left ventricle and left atrium. Coronary artery calcifications are seen. No pericardial effusion. Thoracic aorta non- dilated. Bones: Flowing osteophytes consistent with DISH. No lytic or blastic lesions. No compression fractures. Soft tissues: Unremarkable. ABDOMEN and PELVIS: Liver: Normal density. No suspicious mass. Gallbladder and biliary tract: No evidence of stones or wall thickening. No biliary dilatation. Pancreas: Normal density, no abnormal calcifications or inflammatory process. Spleen: Normal. Kidneys: The right kidney shows normal size, contour and axis. The left kidney is again noted to be extremely atrophic and there is severe hydronephrosis is dilatation of the ureter down to the level of the ureterovesical junction. No radiodense stones. No obstructive uropathy. No suspicious masses seen. Adrenal glands: No masses seen. Aorta: Abdominal portion non-dilated. Lymph nodes: Within normal limits. Soft tissues: Tiny fat containing inguinal hernias. Midline surgical incision is unremarkable. Bladder: Bladder calculi again noted. Bowel: No obstruction or bowel wall thickening. Status post right hemicolectomy. The anastomosis in the right upper quadrant is unremarkable. The mild sigmoid diverticulosis. Peritoneal cavity: No ascites. No focal collection. No mesenteric inflammatory response. No free air. Bones: Unremarkable for age. Reproductive organs: Enlarged prostate, unchanged. IMPRESSION: Status post right hemicolectomy. The anastomosis is unremarkable. No evidence of metastatic disease in the chest, abdomen or pelvis. Enlarged prostate and bladder calculi again noted. Stable appearance of an atrophic and hydronephrotic left kidney. RADIATION DOSE DELIVERED: 1,716.49mGy.cm Total DLP DATA REPOSITORY: All CT scans at this facility are submitted to the National Radiology Data Registry (NRDR) Dose Index Registry (DIR) with the [employer] (A[employer]). RADIATION OPTIMIZATION: All CT scans at this facility use at least one of these dose optimization techniques: automated exposure control; mA and/or kV adjustment per patient size (includes targeted exams where dose is matched to clinical indication); or iterative reconstruction.
[2025-03-18 18:23] LABS: CEA 0.7 ng/mL (See Note)
== END ==
LOC: DI 07:35
PROVIDERS: PCP Family Medicine; Visit Provider Internal Medicine Hematology & Oncology
DX: C18.2 Malignant neoplasm of ascending colon (principal); N40.1 Benign prostatic hyperplasia with lower urinary tract symptoms
CPT/HCPCS: 74177; 80053; 71260; 82378; 85025; J3490